=== PATIENT | male | born 1995 ===

== ENCOUNTER 2020-09-06 06:30 | Emergency (ER) | payer OTHER, SELFPAY ==
--- NOTE | 2020-09-06 06:46 | ED.BACK ---
HPI - Back Pain/Injury General Chief Complaint: Back Pain/Injury Stated Complaint: BACK PAIN Time Seen by Provider: 09/06/20 06:46 Source: patient Mode of arrival: ambulatory Limitations: no limitations History of Present Illness MD elicited complaint: back pain Onset (ago): day(s) (3) Timing: constant Severity: moderate Similar Symptoms Previously: No Quality: sharp Location: left flank Radiation: none Exacerbating factors: movement Relieving factors: none Context: unknown Associated symptoms: other (constipation) Treatments prior to arrival: other medications (topical capsacin) Work related injury: No Related Data Allergies Allergy/AdvReac Type Severity Reaction Status Date / Time No Known Allergies Allergy Verified 09/06/20 06:54 [No Known Allergies*] Review of Systems Review of Systems: Constitutional : No Weight loss, No Fever, No Chills, ENT/Mouth : No Hearing loss, No Ear Pain, No Nasal Congestion, No Sinus Pain, No Hoarseness, No sore throat, No Rhinorrhea, No Swallowing Difficulty Cardiovascular : No Chest Pain, No SOB Respiratory : No Cough, No Dyspnea Gastrointestinal : No Nausea, No Vomiting, No Diarrhea, No abdominal Pain, No Hematochezia, No Melena, chronic constipation Genitourinary : No Dysuria, No Urinary Frequency, No Hematuria, No Urinary Incontinence, Musculoskeletal : positive back pain Skin : No Skin Lesions, No rash Neuro : No Weakness, No Numbness, No Paresthesias, no loss of bowel or bladder incontinence, no saddle anesthesia PMFSH Past Medical History Attestation statement: The following information was validated with the patient. Medical History Patient denies significant medical history Surgical History No significant past surgical history Social History Social History (Updated 09/06/20 @ 06:54 by Sneha Chu DO) Smoking Status: Current every day smoker Substance Use Type: Opiates Advance Directives: Yes Advance Directives Information Provided: Yes Advance Directives on File: No Physical Exam Vital Signs: Vital Signs: Last Vital Signs Temp 98.1 F 09/06/20 06:51 Pulse 69 09/06/20 08:43 Resp 18 09/06/20 08:43 BP 122/54 L 09/06/20 08:43 Pulse Ox 99 09/06/20 08:43 Body Mass Index 22.1 Appearance: Alert. Oriented X3. No acute distress. Eyes: Pupils equal, round and reactive to light. ENT: Pharynx normal. Neck: Normal inspection. Neck supple. CVS: Normal heart rate and rhythm. Pulses normal. Respiratory: No respiratory distress. Breath sounds normal. Abdomen: Soft and nontender. Back: no midline ttp but L flank pain ttp no rash noted Skin: Skin warm and dry. Normal skin color. Normal skin turgor. Extremities: No lower extremity edema. No calf ttp Neuro: Oriented X 3. No motor deficit. No sensory deficit. Course Course Course Narrative: patient eloped prior to results, called number listed it is no longer in service, charge account authorizer called mother in attempts to reach patient but she does not have his cell number MDM - Back Pain/Injury MDM Narrative Medical decision making narrative: 25 yo male with no sig PMH reports L flank pain for 3 days, chronic constipation, denies IVDA but used percocet 2 weeks ago from [address] streets, he is somewhat agitated with questioning and is a poor historian, his L flank pain could be renal colic, doubt epidural abscess adamantly denies IVDA, no b/b incontinence, no saddle anesthesia - will obtain UA, treat pain, CT scan for renal colic, dispo per results and findings. Lab Data Labs: Lab Results 09/06/20 Range/Units 07:07 Urine Color YELLOW Urine Appearance CLEAR Urine pH 5.5 (5.0-8.0) Ur Specific [place] 1.025 (1.005-1.025) Urine Protein NEG (NEG-TRACE) MG/DL Urine Glucose (UA) NEG (NEG) MG/DL Urine Ketones NEG (NEG) MG/DL Urine Blood TRACE (NEG) Urine Nitrite NEG (NEG) Ur Leukocyte Esterase NEG (NEG) Urine RBC 1-4 (0) /HPF Urine WBC 1-4 (0-4) /HPF Ur Squamous Epith Cells TRACE /LPF Urine Bacteria NONE /LPF Urine Mucus TRACE /LPF Discharge Plan Discharge Clinical Impression: Acute left flank pain Patient Disposition: Elopement
[2020-09-06 06:51] VITALS: BP 140/70; PULSE 72; RESP 18; TEMP 36.7; O2SAT 100; BMI 22.1
--- NOTE | 2020-09-06 06:52 | CT_ITS ---
EXAMINATION: CT ABDOMEN AND PELVIS WITHOUT CONTRAST CLINICAL INFORMATION: Left flank pain COMPARISON: None TECHNIQUE: Multidetector volumetric imaging was performed from the superior aspect of the liver through the pubic symphysis. Sagittal and coronal reformatted images were obtained on the technologist's workstation. This CT examination was performed using dose optimization techniques as appropriate, variously including the following: *Automated exposure control *Adjustment of mA and/or kV according to patient size (this includes techniques or standardized protocols for targeted exams where dose is matched to indication/reason for exam; i.e. extremities or head) *Use of iterative reconstruction technique DLP: 463 mGy-cm FINDINGS: LUNG BASES: The visualized lung bases are unremarkable. LIVER, GALLBLADDER, AND BILIARY TREE: The liver is normal in size, shape, and attenuation. No focal hepatic lesion or biliary ductal dilatation is present. Bladder unremarkable. PANCREAS: Soft tissue prominence within or along the right anterolateral pancreatic head. Query mild peripancreatic inflammation about the pancreatic head and neck, obscuring fat planes about the superior mesenteric artery and posterior to the pancreas. SPLEEN: Unremarkable. ADRENAL GLANDS: Unremarkable. KIDNEYS AND URETERS: The kidneys are normal in size, shape, and attenuation. No hydronephrosis, hydroureter, or calculi seen. No perinephric stranding. BLADDER: Unremarkable. GASTROINTESTINAL TRACT: No intestinal obstruction. The transverse colon is under distended limiting assessment. Colitis involving the transverse colon cannot be excluded. The right and left colon are unremarkable. Appendix is normal. Stomach is unremarkable. ABDOMINAL WALL: No significant hernia is appreciated. LYMPH NODES: Normal. VASCULAR: Unremarkable. PELVIC VISCERA: Prostate and seminal vesicles grossly unremarkable. Trace pelvic free fluid. OSSEOUS STRUCTURES: Unremarkable. CT/CT abdomen pelvis wo con IMPRESSION: * No urinary calculi. * Exam significant limited in the absence of intravenous contrast. * There may be mild inflammation about the pancreatic head and neck with obscuration of the fat planes about the superior mesenteric artery and in the retroperitoneum posterior to the pancreas. Also, there is soft tissue density prominence along the right anterolateral pancreas/pancreatic head. Recommend contrast-enhanced CT for further evaluation. * Transverse colon is underdistended limiting assessment. There may be mild inflammation of the transverse colon/colitis. * Otherwise, no definite potential etiology for the patient's left flank pain is seen. * Trace pelvic free fluid is nonspecific, but abnormal in a male. This can be due to locoregional or systemic factors.
[2020-09-06] MEDS: diazePAM 5 MG TABLET PO (07:16)
[2020-09-06] MEDS: Lidocaine 4 % Patch ADH..PATCH 1 PATCH TRANSDERMA (07:16)
[2020-09-06] MEDS: predniSONE 20 MG TABLET 40 MG PO (07:16)
--- NOTE | 2020-09-06 07:17 | PC.NURSE ---
SEEN BY DR PETERSEN. MEDICATED PER ORDERS
[2020-09-06 07:24] LABS: Glucose Urine UA NEG (NEG); Leukocyte Esterase Urine NEG (NEG); Nitrite Urine NEG (NEG); PH 5.5 (5.0-8.0); Specific Gravity - Urine 1.025 (1.005-1.025); Urine Blood TRACE (NEG); Urine Ketones NEG (NEG); Urine Protein NEG (NEG-TRACE)
[2020-09-06 07:32] LABS: Appearance Urine CLEAR; Color Urine YELLOW
[2020-09-06 07:49] LABS: Mucus Urine TRACE /LPF; Squamous Epithelial Cell Urine TRACE /LPF
[2020-09-06 08:43] VITALS: BP 122/54; PULSE 69; RESP 18; O2SAT 99
--- NOTE | 2020-09-06 08:44 | PC.NURSE ---
SEEN BY DR PETERSEN, MEDICATED PER ORDERS WITH LITTLE EFEECT ON PAIN, TO AND FROM CT W/O PROBLEMS
--- NOTE | 2020-09-06 09:33 | PC.NURSE ---
message left at [phone] w pts mother to call the ED, [phone] was not in service
--- NOTE | 2020-09-06 09:52 | PC.NURSE ---
NOT IN ROOM AT 0900 AND 0930. CALL TO MOTHER TO HAVE PT RETURN FOR ABNORMAL CT
== END 2020-09-06 09:54 | disposition left against medical advice (07) ==
PROVIDERS: Emergency Provider Emergency Medicine
DX: R10.9 Unspecified abdominal pain (principal); F17.200 Nicotine dependence, unspecified, uncomplicated
CPT/HCPCS: 74176; 81001; 99283; 99284

== ENCOUNTER 2021-07-01 18:16 | Emergency (ER) | payer OTHER, SELFPAY ==
[2021-07-01 18:18] VITALS: BP 141/74; PULSE 61; RESP 18; TEMP 36.8; O2SAT 98; BMI 23.6
--- NOTE | 2021-07-01 18:36 | ED.DENTAL ---
HPI - Dental/Oral General Chief complaint: Dental/Oral Stated complaint: dental pain Time Seen by Provider: 07/01/21 18:36 Source: patient Mode of arrival: ambulatory Limitations: no limitations History of Present Illness HPI Narrative: Patient history of dental caries got worse for last few days complaining of pain shooting down fashion to the cold Teeth map: 1. Broken left lower 1st molar sensitive to touch no surrounding gum swelling or bogginess Related Data Previous Rx's Medication Instructions Recorded amoxicillin 875 mg-potassium 1 tab PO BID #20 tab 07/01/21 clavulanate 125 mg tablet (Augmentin) oxycodone-acetaminophen 5 mg-325 1 tab PO Q6H PRN #20 tab 07/01/21 mg tablet (Percocet) Allergies Allergy/AdvReac Type Severity Reaction Status Date / Time No Known Allergies Allergy Verified 09/06/20 06:54 [No Known Allergies*] Review of Systems Review of Systems: Yes all other systems are reviewed and are negative PMFSH Past Medical History Medical History Patient denies significant medical history Surgical History No significant past surgical history Social History Social History Substance Use Type: Opiates Advance Directives: No Advance Directives Information Provided: No Physical Exam Vital Signs: Vital Signs: Last Vital Signs Temp 98.3 F 07/01/21 18:18 Pulse 61 07/01/21 18:18 Resp 18 07/01/21 18:18 BP 141/74 H 07/01/21 18:18 Pulse Ox 98 07/01/21 18:18 Body Mass Index 23.6 Const: General: well developed and in distress moderate Orientation/consciousness: patient oriented x3 HENMT: Teeth image: 1. Broken left lower 1st molar tender to touch no abscess or swelling of the gum Resp: Effort & Inspection: normal respiratory effort Auscultation: clear to auscultation bilaterally Neuro: General: patient oriented x3 Discharge Plan Discharge Clinical Impression: Dental caries Patient Disposition: Home, Self-Care Instructions: Toothache (ED) Additional Instructions: Take antibiotics and pain medication as prescribed Follow up with dentist Prescriptions: New oxycodone-acetaminophen [Percocet] 5-325 mg tablet 1 tab PO Q6H PRN (Reason: pain) Qty: 20 RF: 0 amoxicillin-pot clavulanate [Augmentin] 875-125 mg tablet 1 tab PO BID Qty: 20 RF: 0
[2021-07-01] MEDS: oxyCODONE HCl Immed Release 5 MG TABLET 10 MG PO (18:53)
[2021-07-01] MEDS: Amoxicillin/Potassium Clav 875 MG TABLET PO (18:54)
== END 2021-07-01 18:59 | disposition home or self-care (01) ==
PROVIDERS: Emergency Provider Internal Medicine
DX: K02.9 Dental caries, unspecified (principal)
CPT/HCPCS: 99283

== ENCOUNTER 2021-08-16 12:31 | Emergency (ER) | payer OTHER, SELFPAY ==
[2021-08-16 13:02] VITALS: BP 127/85; PULSE 99; RESP 19; TEMP 36.6; O2SAT 99; BMI 25.1
== END 2021-08-16 19:41 | disposition left against medical advice (07) ==
PROVIDERS: Emergency Provider Emergency Medicine
DX: S41.112A Laceration without foreign body of left upper arm, initial encounter (principal); S41.111A Laceration without foreign body of right upper arm, initial encounter; V18.0XXA Pedal cycle driver injured in noncollision transport accident in nontraffic accident, initial encounter; Y93.55 Activity, bike riding; Y92.414 Local residential or business street as the place of occurrence of the external cause; Y99.9 Unspecified external cause status
CPT/HCPCS: 99281; 99282

== ENCOUNTER 2021-10-19 11:06 | Emergency (ER) | payer OTHER, SELFPAY ==
[2021-10-19 11:27] VITALS: BP 142/63; PULSE 100; RESP 19; TEMP 36.6; O2SAT 100; BMI 25.1
[2021-10-19 13:18] LABS: MANUAL DIFF FLAG NO
[2021-10-19 13:20] LABS: Basophils Percent Auto 0.8 % (0-2); Eosinophils Absolute Auto 0.1 X10*3/uL (0.0-0.4); Eosinophils Percent Auto 2.7 % (0-4); Hematocrit 45.4 % (42.0-52.0); Hemoglobin 15.2 g/dl (14.0-18.0); Lymphocytes Absolute Auto 1.8 X10*3/uL (1.2-4.9); Lymphocytes Percent Auto 34.3 % (20-40); Mean Corpuscular HGB Conc 33.5 g/dl (31.0-36.0); Mean Corpuscular Hemoglobin 29.5 pg (27.0-33.0); Mean Corpuscular Volume 88.2 fL (80.0-98.0); Mean Platelet Volume 9.9 fL (9.4-12.4); Monocytes Absolute Auto 0.3 X10*3/uL (0.1-1.2); Monocytes Percent Auto 6.3 % (2-11); Neutrophils Absolute Auto 2.9 x10*3/uL (2.0-8.3); Neutrophils Percent Auto 55.9 % (45-73); Platelet Count 252 X10*3/uL (160-400); Red Blood Count 5.15 X10*6/uL (4.60-5.80); White Blood Count 5.1 X10*3/uL (4.8-10.8)
--- NOTE | 2021-10-19 13:22 | ED.NAVMDI ---
HPI - Nausea/Vomiting/Diarrhea General Chief complaint: Abdominal Pain Stated complaint: vomiting/stomach pain/diarrhea Time Seen by Provider: 10/19/21 13:21 Source: patient Mode of arrival: ambulatory Limitations: no limitations History of Present Illness HPI Narrative: 26 y/o male presents to the ER for evaluation of nausea, vomiting, diarrhea and generalized abdominal pain that started this morning. His 2 young daughter are home with similar symptoms. They were brought to the ER and told they had a stomach bug a few days ago. Patient had 1 episode of nonbloody vomiting this morning and several episodes of loose stool, non-bloody. He has been tolerating PO liquids. He reports his stomach is upset with no specific location. He denies fever, chills, cough, chest pain or SOB. MD elicited complaint: nausea, vomiting, diarrhea and abdominal pain Onset (ago): hour(s) Description of vomiting: food contents Description of diarrhea: loose Associated nausea: Yes Associated abdominal pain: Yes Location of pain: diffuse Radiation: diffuse Pain consistency: intermittent Severity: moderate Quality: aching Exacerbating factors: eating Relieving factors: none Context: sick contacts Associated symptoms: nausea/vomiting Related Data Previous Rx's Medication Instructions Recorded amoxicillin 875 mg-potassium 1 tab PO BID #20 tab 07/01/21 clavulanate 125 mg tablet (Augmentin) oxycodone-acetaminophen 5 mg-325 1 tab PO Q6H PRN #20 tab 07/01/21 mg tablet (Percocet) Allergies Allergy/AdvReac Type Severity Reaction Status Date / Time No Known Allergies Allergy Verified 09/06/20 06:54 [No Known Allergies*] Review of Systems Review of Systems: Constitutional: No Fever, No Chills ENT/Mouth: No sore throat, No Rhinorrhea, No Swallowing Difficulty Eyes: No Eye Pain, No Swelling, No Redness Cardiovascular: No Chest Pain, No SOB, No Orthopnea, No Edema Respiratory: No Cough, No Sputum, No Wheezing, No dyspnea Gastrointestinal: + Nausea, + Vomiting, + Diarrhea, + abdominal Pain, No Hematochezia, No Melena Genitourinary: No Dysuria, No Urinary Frequency, No Hematuria Musculoskeletal: No joint pain, No Myalgias Skin: No Skin Lesions, No rash Neuro: No Weakness, No Numbness, No Dizziness, No Headache Psych: No Anxiety/Panic, No Depression Heme/Lymph: No Bruising, No Lymphadenopathy Endocrine: No Polyuria, No Polydipsia Gastrointestinal: Gastrointestinal: Reports nausea PMFSH Past Medical History Medical History (Updated 10/19/21 @ 13:25 by AMANDA Rodas) Bipolar 1 disorder Depression Patient denies significant medical history Seizure Surgical History No significant past surgical history Social History Social History Substance Use Type: Opiates Advance Directives: No Advance Directives Information Provided: No Physical Exam Vital Signs: Vital Signs: Last Vital Signs Temp 98 F 10/19/21 11:27 Pulse 100 10/19/21 11:27 Resp 19 10/19/21 11:27 BP 142/63 H 10/19/21 11:27 Pulse Ox 100 10/19/21 11:27 BMI result Body Mass Index 25.1 Appearance: Alert. Oriented X3. No acute distress. Eyes: Pupils equal, round and reactive to light. ENT: Pharynx normal. Neck: Normal inspection. Neck supple. CVS: Normal heart rate and rhythm. Pulses normal. Respiratory: No respiratory distress. Breath sounds normal. Abdomen: Flat, Soft and nontender. hyperactive +BS x4 Skin: Skin warm and dry. Normal skin color. Normal skin turgor. No rashes. Extremities: No lower extremity edema. Neuro: Oriented X 3. No motor deficit. No sensory deficit. Course Course Course Narrative: 26-year-old male presents to the ER with a few hours of nausea, 1 episode of vomiting and several episodes of loose stools that started today. His daughters are home with similar symptoms. His vital signs are normal on arrival in his examination is benign. Lab workup pending. Most likely viral gastroenteritis from his daughters. He is tolerating p.o., will hold off on IV fluids. Reevaluation(s) Reevaluation #1: Lab workup is unremarkable. No leukocytosis. He is stable for discharge home with supportive care. Work note provided per request. MDM - Nausea/Vomiting/Diarrhea Lab Data Result diagrams: 10/19/21 13:13 10/19/21 13:13 Labs: Lab Results 10/19/21 10/19/21 Range/Units 13:13 13:13 WBC 5.1 (4.8-10.8) X10*3/uL RBC 5.15 (4.60-5.80) X10*6/uL Hgb 15.2 (14.0-18.0) g/dl Hct 45.4 (42.0-52.0) % MCV 88.2 (80.0-98.0) fL MCH 29.5 (27.0-33.0) pg MCHC 33.5 (31.0-36.0) g/dl RDW 12.0 (11.0-16.0) % Plt Count 252 (160-400) X10*3/uL MPV 9.9 (9.4-12.4) fL Immature Gran % (Auto) 0.0 (0.0-0.4) % Neut % (Auto) 55.9 (45-73) % Lymph % (Auto) 34.3 (20-40) % [place] % (Auto) 6.3 (2-11) % Eos % (Auto) 2.7 (0-4) % Baso % (Auto) 0.8 (0-2) % Lymph # (Auto) 1.8 (1.2-4.9) X10*3/uL [place] # (Auto) 0.3 (0.1-1.2) X10*3/uL Eos # (Auto) 0.1 (0.0-0.4) X10*3/uL Baso # (Auto) 0.0 (0.0-0.2) X10*3/uL Abs Immat Gran (auto) 0.00 (0.00-0.03) X10*3/uL Absolute Neuts (auto) 2.9 (2.0-8.3) x10*3/uL Absolute Nucleated RBC 0.000 (0.0-0.012) X10*3/uL Nucleated RBC % (auto) 0.0 (0.0-0.2) /100WBC Sodium 139 (135-145) mmol/L Potassium 4.8 (3.3-5.1) mmol/L Chloride 104 (96-108) mmol/L Carbon Dioxide 27 (22-29) mmol/L Anion Gap 13 (12-20) BUN 11 (9-16) mg/dL Creatinine 0.88 (0.5-1.4) mg/dL Estim Creat Clear Calc 126.0 Estimated GFR > 60 Random Glucose 107 (60-115) mg/dL Calcium 9.7 (8.4-10.2) mg/dL Discharge Plan Discharge Clinical Impression: Gastroenteritis Patient Disposition: Home, Self-Care Instructions: Gastroenteritis (DC) Additional Instructions: Your lab workup today was unremarkable. Stick to a bland diet while you are not feeling well like soup and toast. Take the prescribed medication as needed for nausea. Follow up with your doctor as needed. If you develop new or worsening symptoms call 911 or come back to the ER for further evaluation. Prescriptions: No Action oxycodone-acetaminophen [Percocet] 5-325 mg tablet 1 tab PO Q6H PRN (Reason: pain) Qty: 20 0RF amoxicillin-pot clavulanate [Augmentin] 875-125 mg tablet 1 tab PO BID Qty: 20 0RF Stand Alone Forms: Work/School Release
[2021-10-19 14:13] LABS: Anion Gap 13 (12-20); Blood Urea Nitrogen 11 mg/dL (9-16); Calcium 9.7 mg/dL (8.4-10.2); Carbon Dioxide 27 mmol/L (22-29); Chloride 104 mmol/L (96-108); Estimated Glomerular Filt Rate > 60; Glucose Random 107 mg/dL (60-115); Potassium 4.8 mmol/L (3.3-5.1); Sodium 139 mmol/L (135-145)
== END 2021-10-19 14:27 | disposition home or self-care (01) ==
PROVIDERS: Emergency Provider Emergency Medicine
DX: K52.9 Noninfective gastroenteritis and colitis, unspecified (principal); R11.2 Nausea with vomiting, unspecified
CPT/HCPCS: 36415; 80048; 85025; 99283

== ENCOUNTER 2021-12-21 08:26 | Emergency (ER) | payer OTHER, SELFPAY ==
--- NOTE | ~2021-12-21 | XR_ITS ---
EXAMINATION: XR LUMBOSACRAL SPINE CLINICAL INFORMATION: Low back pain status post injury. COMPARISON: 01/15/2020 lumbar spine radiographs TECHNIQUE: Three views of the lumbosacral spine. FINDINGS: The vertebral bodies and posterior elements are normal. The disc spaces are preserved and the vertebral alignment is normal. The paraspinal soft tissues are normal. XR/XR lumbar spine 2-3V IMPRESSION: Unremarkable lumbar spine.
[2021-12-21 08:29] VITALS: BP 125/79; PULSE 58; RESP 14; TEMP 36; O2SAT 99; BMI 20.7
--- NOTE | 2021-12-21 09:12 | ED.BACK ---
HPI - Back Pain/Injury General Chief Complaint: Back Pain/Injury Stated Complaint: lower back pain Time Seen by Provider: 12/21/21 09:06 Source: patient Mode of arrival: ambulatory Limitations: no limitations History of Present Illness HPI Narrative: 26-year-old male with a history of previous back pain here with reports of low back pain after lifting heavy furniture yesterday at home. Patient denies any radiation of pain. No numbness or tingling of the lower extremities. No bowel or bladder incontinence. No fevers or chills. Related Data Previous Rx's Medication Instructions Recorded amoxicillin 875 mg-potassium 1 tab PO BID #20 tab 07/01/21 clavulanate 125 mg tablet (Augmentin) oxycodone-acetaminophen 5 mg-325 1 tab PO Q6H PRN #20 tab 07/01/21 mg tablet (Percocet) cyclobenzaprine 10 mg tablet 10 mg PO TID PRN #14 tab 12/21/21 naproxen 500 mg tablet 500 mg PO BID PRN #30 tab 12/21/21 Allergies Allergy/AdvReac Type Severity Reaction Status Date / Time No Known Allergies Allergy Verified 09/06/20 06:54 [No Known Allergies*] Review of Systems Review of Systems: Yes all other systems are reviewed and are negative Constitutional: Constitutional: Reports no additional constitutional complaints, Denies body ache(s), Denies chills, Denies fever(s), Denies headache(s) and Denies weakness Eyes: Eyes: Reports no additional eye complaints and Denies change in vision ENT: Reports system reviewed and no additional complaints, except as documented, Denies dizziness, Denies headache(s), Denies nasal congestion, Denies nasal discharge and Denies neck pain Cardiovascular: Cardiovascular: Reports no additional cardiovascular complaints, Denies chest pain, Denies leg edema and Denies dyspnea Respiratory: Respiratory: Reports no additional respiratory complaints, Denies cough and Denies dyspnea Gastrointestinal: Gastrointestinal: Reports no additional gastrointestinal complaints, Denies abdominal pain, Denies diarrhea, Denies nausea and Denies vomiting Genitourinary: Genitourinary: Denies urinary incontinence Musculoskeletal: Musculoskeletal: Reports no additional musculoskeletal complaints, Reports back pain, Denies arthralgias, Denies joint swelling, Denies neck pain, Denies numbness and Denies tingling Integumentary/Breasts: Skin/Breast: Reports system reviewed and no additional complaints, except as docu and Denies rash Neurologic: Reports system reviewed and no additional complaints, except as documented, Denies Abnormal speech present, Denies dizziness, Denies headache(s), Denies numbness, Denies tingling and Denies weakness PMFSH Past Medical History Attestation statement: The following information was validated with the patient. Source: old records reviewed and nursing notes reviewed Medical History Bipolar 1 disorder Depression Patient denies significant medical history Seizure Surgical History No significant past surgical history Social History Social History Substance Use Type: Opiates Advance Directives: No Advance Directives Information Provided: No Physical Exam Vital Signs: Vital Signs: Last Vital Signs Temp 96.8 F 12/21/21 08:29 Pulse 58 12/21/21 08:29 Resp 17 12/21/21 09:51 BP 125/79 12/21/21 08:29 Pulse Ox 99 12/21/21 08:29 BMI result Body Mass Index 20.7 Const: General: cooperative, healthy appearing, comfortable and no acute distress Orientation/consciousness: patient oriented x3 Limitations: no limitations HEENT: Head: Yes normal to inspection Ears: hearing grossly normal bilaterally General nose exam: Normal external nose present Face and sinus: Yes normal facial exam Mouth: Normal oral and palatal mucosa present Throat: Yes posterior oropharynx normal Eyes: General: appearance normal, both eyes and all related structures Pupils: Equal, round and reactive pupils present Neck: Neck: Yes normal visual inspection Chest: Chest palpation & inspection: normal inspection of the chest Resp: Effort & Inspection: normal respiratory effort Auscultation: clear to auscultation bilaterally Cardio: Rate: regular rate Rhythm: regular rhythm Peripheral pulses: Peripheral pulses 2+ throughout GI: Inspection: Yes normal to inspection Palpation (GI): Soft to palpation and nontender Auscultation: normal bowel sounds : General: Yes no CVA tenderness Back/Spine/Pelvis: Other: Tenderness to lumbar mid spine with no step-offs or deformities. Pain is worsened with bilateral straight leg raise. Back: no CVA tenderness Thoracic/Lumbar Spine: thoracic and lumbar spine normal to inspection Skin: General skin exam: no rashes or lesions noted Neuro: General: patient oriented x3, no focal motor deficits and normal sensation to monofilament Cranial nerves: Yes CN's II-XII intact bilaterally, Yes Equal, round and reactive pupils present, Yes Bilaterally intact EOM present, Yes Nystagmus not present, Yes Normal facial strength present and Yes Midline tongue present Cognition (Neuro): normal cognition Speech: No Abnormal speech present Gait exam (Neuro): Normal gait present Motor exam (neuro): 5/5 motor strength present throughout Sensory Exam: Normal double simultaneous stimulation for sensation Deep tendon reflexes (DTR's): Right patellar reflex intensity grade: 2+ and Left patellar reflex intensity grade: 2+ Extrem: General: Yes normal to inspection Course Course Course Narrative: 26-year-old male here with acute on chronic low back pain after lifting heavy items yesterday. Patient has midline tenderness will check x-rays. Will provide analgesia and reassess Reevaluation(s) Reevaluation #1: X-ray show no bony abnormality. Likely lumbar strain. Will plan for discharge home with supportive care. Reviewed worrisome signs and symptoms such as incontinence, saddle anesthesia, fever and when to return to the emergency department. Comfortable discharge home. Time: 09:45 MDM - Back Pain/Injury MDM Narrative Medical decision making narrative: Less likely cauda equina with no neurological deficits or red flag symptoms. No saddle anesthesia or incontinence Less likely epidural abscess with no history of immunocompromise state, no fevers Medical Records Attestation: I reviewed the patient's medical records. Lab Data Attestation: I reviewed the patient's lab results. Imaging Data lumbar x-ray: Attestation: I personally reviewed and interpreted this imaging study as follows: Radiologist's impression: [address] [address] XRay Report Signed Patient: Jacy Simmons MR#: [id number] : 1995 Acct:[id number] Age/Sex: 26 / M ADM Date: 12/21/21 Loc: [facility].ED Attending Dr: Ordering Physician: Monalisa Manzanares NP Date of Service: 12/21/21 Procedure(s): XR lumbar spine 2-3V Accession Number(s): [id number] cc: Monalisa Manzanares [employer]IOR [employer]S CONSULTANT~ EXAMINATION: XR LUMBOSACRAL SPINE CLINICAL INFORMATION: Low back pain status post injury. COMPARISON: 01/15/2020 lumbar spine radiographs TECHNIQUE: Three views of the lumbosacral spine. FINDINGS: The vertebral bodies and posterior elements are normal. The disc spaces are preserved and the vertebral alignment is normal. The paraspinal soft tissues are normal. XR/XR lumbar spine 2-3V IMPRESSION: Unremarkable lumbar spine. Discharge Plan Discharge Clinical Impression: Strain of lumbar region Patient Disposition: Home, Self-Care Instructions: Low Back Strain (ED) Additional Instructions: Heat or ice Gentle stretching No heavy lifting or bending Follow-up with your primary care doctor in 1 week for persistent symptoms Prescriptions: New naproxen 500 mg tablet 500 mg PO BID PRN (Reason: pain) Qty: 30 0RF cyclobenzaprine 10 mg tablet 10 mg PO TID PRN (Reason: muscle spasm) Qty: 14 0RF No Action oxycodone-acetaminophen [Percocet] 5-325 mg tablet 1 tab PO Q6H PRN (Reason: pain) Qty: 20 0RF amoxicillin-pot clavulanate [Augmentin] 875-125 mg tablet 1 tab PO BID Qty: 20 0RF Referrals: Physician,Unknown J [Primary Care Provider] - 1 week (For persistent symptoms) Interventions: ED Discharge Assessment Last Done: 12/21/21 09:51 Discharge Date/Time: 12/21/21 09:52
[2021-12-21] MEDS: Ketorolac Tromethamine 60 MG/2 ML VIAL IM (09:28)
[2021-12-21 09:51] VITALS: RESP 17
== END 2021-12-21 09:52 | disposition home or self-care (01) ==
PROVIDERS: Emergency Provider Emergency Medicine
DX: M54.50 Low back pain, unspecified (principal); Z79.899 Other long term (current) drug therapy
CPT/HCPCS: 72100; 96372; 99283; 99284; J1885

== ENCOUNTER 2022-03-26 07:12 | Emergency (ER) | payer OTHER, SELFPAY ==
[2022-03-26 07:23] VITALS: BP 135/72; PULSE 62; RESP 17; TEMP 36.6; O2SAT 98; BMI 22.1
--- NOTE | 2022-03-26 10:09 | ED_ITS ---
HPI - Skin/Abscess/Foreign Bdy General Chief complaint: Wound/Laceration Stated complaint: Abscess? Spider bite Time Seen by Provider: 03/26/22 09:22 Source: patient Mode of arrival: ambulatory Limitations: no limitations History of Present Illness HPI narrative: Patient presents emergency department for evaluation pain and redness to the left upper thigh. He states it has been present for a couple of days. He felt himself get bit by something a couple of days ago but thought nothing of it. Until he realized the redness. He states he was able to express a small amount of pus from the area yesterday. He applied warm moist compresses which is actually brought down the amount of swelling and redness. Denies fevers or chills. Denies history of IV drug usage. Reports prior history of an abscess to the buttock requiring incision and drainage in the past. Related Data Previous Rx's Medication Instructions Recorded amoxicillin 875 mg-potassium 1 tab PO BID #20 tabs 07/01/21 clavulanate 125 mg tablet (Augmentin) oxycodone-acetaminophen 5 mg-325 1 tab PO Q6H PRN pain #20 tabs 07/01/21 mg tablet (Percocet) cyclobenzaprine 10 mg tablet 10 mg PO TID PRN muscle spasm #14 12/21/21 tabs naproxen 500 mg tablet 500 mg PO BID PRN pain #30 tabs 12/21/21 cephalexin 500 mg capsule 500 mg PO QID 7 days #28 caps 03/26/22 doxycycline hyclate 100 mg tablet 100 mg PO BID 7 days #14 tabs 03/26/22 Allergies Allergy/AdvReac Type Severity Reaction Status Date / Time No Known Allergies Allergy Verified 09/06/20 06:54 [No Known Allergies*] Review of Systems Review of Systems: Constitutional :? Positive history of similar in past, Denies any other sites involved, Denies IV drug use, Denies history of MRSA, Denies swollen glands, Denies injury, Denies Fever, Denies Chills, + Sig Pain, Denies Systemic symptoms Cardiovascular : No Chest Pain, No SOB Respiratory : No Dyspnea Gastrointestinal : No abdominal pain Musculoskeletal : No Joint Swelling Skin : + abscess with surrounding erythema, No skin laceration, No Foreign bodies, No spreading rash, positive bites, Denies discharge, Neuro : No Weakness, No Numbness/tingling Psych : No SI/HI/thoughts of self injury Yes all other systems are reviewed and are negative [facility] Past Medical History Attestation statement: The following information was validated with the patient. Source: old records reviewed Medical History Bipolar 1 disorder Depression Patient denies significant medical history Seizure Surgical History No significant past surgical history Social History Social History Substance Use Type: Opiates Advance Directives: No Advance Directives Information Provided: No Physical Exam Vital Signs: Vital Signs: Last Vital Signs Temp 98 F 03/26/22 07:23 Pulse 62 03/26/22 07:23 Resp 17 03/26/22 07:23 BP 135/72 03/26/22 07:23 Pulse Ox 98 03/26/22 07:23 O2 Del Method 03/26/22 07:23 BMI result Body Mass Index 22.1 Vital signs have been reviewed as normal and appeared to be correct. Blood pressure normal.? Heart rate normal.? Respiration rate normal. Temperature normal.? Oxygen saturation normal. Appearance: Alert.?Oriented to person, place and time. No acute distress.?Normal affect. Eyes: Pupils equal, round and reactive to light.? ENT: Pharynx normal.?? Neck: Normal inspection.? Neck supple.?? CVS: Heart sounds normal. Normal heart rate and rhythm.? Pulses normal.?? Respiratory: No respiratory distress.? Lung sounds clear to auscultation bilaterally?? Abdomen: Soft and non-tender. Normoactive bowel sounds. No pulsatile mass.?? Skin: Skin warm and dry.? Normal skin color.? Positive 4 cm induration to left upper lateral thigh with surrounding erythema Extremities: No lower extremity edema.? Neuro: Moves all extremities spontaneously. Sensation intact bilaterally. No motor deficits Ambulates with normal steady gait. Course Course Course Narrative: Patient is a 26-year-old male presents emergency department for evaluation of erythema and pain to the left thigh. History physical exam consistent with cellulitis, area of induration no central fluctuance. No systemic toxicity, and patient is well-appearing. Not consistent with necrotizing fasciitis, myositis, DVT, osteomyelitis. Erythema was marked with skin marker. No labs or imaging indicated at this time. Will discharge home with course of oral antibiotics and symptomatic treatment instructions. Discussed reasons to return to the emergency department, and follow-up with primary care provider within 3 days. Patient agreeable with plan of care. Discharge Plan Discharge Clinical Impression: Cellulitis and abscess of left lower extremity Patient Disposition: Home, Self-Care Instructions: Cellulitis (ED) Additional Instructions: As we discussed please contact your primary care provider and arrange for follow-up within 3 days. If you notice worsening redness, swelling, redness extending the border of the marked skin, whitening of the skin surrounding the bite, or concern for pus, fevers, chills, severe worsening pain this should be re-evaluated. Continue applying warm moist compresses. Given given a prescription for 2 antibiotics, please complete this entire course. Return to emergency department any new or worsening symptoms or concerns Prescriptions: New cephalexin 500 mg capsule 500 mg PO QID 7 Days Qty: 28 0RF doxycycline hyclate 100 mg tablet 100 mg PO BID 7 Days Qty: 14 0RF No Action oxycodone-acetaminophen [Percocet] 5-325 mg tablet 1 tab PO Q6H PRN (Reason: pain) Qty: 20 0RF amoxicillin-pot clavulanate [Augmentin] 875-125 mg tablet 1 tab PO BID Qty: 20 0RF naproxen 500 mg tablet 500 mg PO BID PRN (Reason: pain) Qty: 30 0RF cyclobenzaprine 10 mg tablet 10 mg PO TID PRN (Reason: muscle spasm) Qty: 14 0RF Stand Alone Forms: Work/School Release Interventions: ED Discharge Assessment Last Done: 03/26/22 10:30 Discharge Date/Time: 03/26/22 10:32
== END 2022-03-26 10:32 | disposition home or self-care (01) ==
PROVIDERS: Emergency Provider Emergency Medicine
DX: L03.116 Cellulitis of left lower limb (principal); L02.416 Cutaneous abscess of left lower limb
CPT/HCPCS: 99283

== ENCOUNTER 2022-03-27 15:58 | Emergency (ER) | payer OTHER, SELFPAY ==
[2022-03-27 17:22] VITALS: BP 107/48; PULSE 62; RESP 18; TEMP 36.7; O2SAT 100; BMI 21.6
== END 2022-03-27 21:35 | disposition left against medical advice (07) ==
PROVIDERS: Emergency Provider Emergency Medicine
DX: M79.605 Pain in left leg (principal)
CPT/HCPCS: 99281

== ENCOUNTER 2022-03-28 11:11 | Emergency (ER) | payer OTHER, SELFPAY ==
--- NOTE | 2022-03-28 11:19 | PC.NURSE ---
NOT IN [facility] X 3 CALLS
[2022-03-28 11:22] VITALS: BP 147/69; PULSE 86; RESP 17; TEMP 36.1; O2SAT 98; BMI 22.1
[2022-03-28] MEDS: Lidocaine HCl 1 % MPF 2 ML VIAL INFILTRATI (13:46)
--- NOTE | 2022-03-28 14:38 | ED_ITS ---
HPI - Wound/Laceration General Chief Complaint: Wound/Laceration Stated Complaint: abscess Time Seen by Provider: 03/28/22 12:50 Source: patient Mode of arrival: ambulatory History of Present Illness HPI narrative: 26-year-old male with a past medical history of bipolar, depression, seizures, presenting to ED for re-evaluation of left upper thigh cellulitis/suspected insect bite. Patient was seen and treated in the ED on 03/26, prescribed Keflex and doxycycline with some relief however reports area came to white head yesterday and popped this morning. Reports active drainage at present. States overall erythema has improved. Denies fever, chills Onset (ago): day(s) Related Data Previous Rx's Medication Instructions Recorded amoxicillin 875 mg-potassium 1 tab PO BID #20 tabs 07/01/21 clavulanate 125 mg tablet (Augmentin) oxycodone-acetaminophen 5 mg-325 1 tab PO Q6H PRN pain #20 tabs 07/01/21 mg tablet (Percocet) cyclobenzaprine 10 mg tablet 10 mg PO TID PRN muscle spasm #14 12/21/21 tabs naproxen 500 mg tablet 500 mg PO BID PRN pain #30 tabs 12/21/21 cephalexin 500 mg capsule 500 mg PO QID 7 days #28 caps 03/26/22 doxycycline hyclate 100 mg tablet 100 mg PO BID 7 days #14 tabs 03/26/22 Allergies Allergy/AdvReac Type Severity Reaction Status Date / Time No Known Allergies Allergy Verified 03/27/22 17:22 [No Known Allergies*] Review of Systems Review of Systems: Constitutional: No Fever, No Chills ENT/Mouth: No Ear Pain, No Nasal Congestion, No sore throat, No Rhinorrhea, No Swallowing Difficulty Cardiovascular: No Chest Pain, No SOB Respiratory: No Cough, No Sputum, No Wheezing Gastrointestinal: No Nausea, No Vomiting, No Diarrhea, No Constipation, No Abdominal pain Genitourinary: No Dysuria, No Urinary Frequency, No Hematuria Musculoskeletal: No joint pain, No Myalgias, No Joint Swelling Skin: + Skin Lesions, No rash Neuro: No Weakness, No Numbness, No Paresthesias Yes all other systems are reviewed and are negative Constitutional: Constitutional: Reports as per [facility] Past Medical History Attestation statement: The following information was validated with the patient. Medical History Bipolar 1 disorder Depression Patient denies significant medical history Seizure Surgical History No significant past surgical history Social History Social History Substance Use Type: Opiates Advance Directives: No Advance Directives Information Provided: No Physical Exam Vital Signs: Vital Signs: Last Vital Signs Temp 97 F 03/28/22 11:22 Pulse 86 03/28/22 11:22 Resp 17 03/28/22 11:22 BP 147/69 H 03/28/22 11:22 Pulse Ox 98 03/28/22 11:22 O2 Del Method 03/28/22 11:22 BMI result Body Mass Index 22.1 Const: General: cooperative, healthy appearing and no acute distress Orientation/consciousness: patient oriented x3 Limitations: no limitations HEENT: Head: Yes normal to inspection and Yes atraumatic Ears: hearing grossly normal bilaterally General nose exam: Normal external nose present Face and sinus: Yes normal facial exam Eyes: General: appearance normal, both eyes and all related structures EOM: EOMs intact bilaterally Neck: Neck: Yes normal visual inspection and Yes no meningeal signs Resp: Effort & Inspection: normal respiratory effort and no respiratory distress Cardio: Rate: regular rate Skin: Other: + left upper thigh open draining wound with surrounding erythema within previously marked parameters. + small area of central fluctuance at opening with surrounding induration. Tender to palpation. Not circumferential. No streaking. Rashes: no rashes Neuro: General: patient oriented x3, tone normal and no meningeal signs Gait exam (Neuro): Normal gait present Extrem: General: Yes normal to inspection MDM - Wound/Laceration MDM Narrative Medical decision making narrative: 26-year-old male with a past medical history of bipolar, depression, seizures, presenting to ED for re-evaluation of left upper thigh cellulitis/suspected insect bite. On exam vital signs stable, NAD, nontoxic appearing, physical exam as above with open draining abscess, will perform I & D to express more pus. Instructed patient to continue previously prescribed antibiotics Results discussed with patient including worrisome signs and symptoms and strict return precautions, and when to return to the emergency department. They verbalized understanding and feel safe for discharge at this time. Differential Diagnosis Differential diagnosis: Likely laceration Medical Records Attestation: I reviewed the patient's medical records. Lab Data Attestation: I reviewed the patient's lab results. Procedures Abscess I/D Site: lower extremity Side (if applicable): left Local Anesthetic: lidocaine 1% Amount of anesthesia used (mL): 2 Technique: incised with blade Sent for culture/gram staining?: No Irrigation: No Packing used?: none Discharge Plan Discharge Clinical Impression: Abscess Patient Disposition: Home, Self-Care Instructions: Abscess Incision and Drainage (DC) Additional Instructions: Continue taking previously prescribed antibiotics. Her abscess is open today in the emergency department. Continue to apply warm compresses. If area begins to grow, continues to drain, you have fevers, is passing the line created return to the emergency department Prescriptions: No Action oxycodone-acetaminophen [Percocet] 5-325 mg tablet 1 tab PO Q6H PRN (Reason: pain) Qty: 20 0RF amoxicillin-pot clavulanate [Augmentin] 875-125 mg tablet 1 tab PO BID Qty: 20 0RF naproxen 500 mg tablet 500 mg PO BID PRN (Reason: pain) Qty: 30 0RF cyclobenzaprine 10 mg tablet 10 mg PO TID PRN (Reason: muscle spasm) Qty: 14 0RF cephalexin 500 mg capsule 500 mg PO QID 7 Days Qty: 28 0RF doxycycline hyclate 100 mg tablet 100 mg PO BID 7 Days Qty: 14 0RF Referrals: Adrianna Coronado, [employer] [Primary Care Provider] - 3 days
== END 2022-03-28 14:48 | disposition home or self-care (01) ==
PROVIDERS: Emergency Provider Emergency Medicine; PCP Nurse Practitioner Family
DX: L02.416 Cutaneous abscess of left lower limb (principal); Z79.899 Other long term (current) drug therapy
CPT/HCPCS: 10060; 99283; 99284

== ENCOUNTER 2022-04-05 08:38 | Emergency (ER) | payer OTHER, SELFPAY ==
[2022-04-05 08:45] VITALS: BP 124/70; PULSE 50; RESP 17; TEMP 36.6; O2SAT 98; BMI 23.6
--- NOTE | 2022-04-05 08:46 | ED.NAVMDI ---
HPI - Nausea/Vomiting/Diarrhea General Chief complaint: Nausea/Vomiting/Diarrhea Stated complaint: Nausea, Vomiting, Diarrhea Time Seen by Provider: 04/05/22 08:45 Source: patient Mode of arrival: ambulatory Limitations: no limitations History of Present Illness HPI Narrative: 26-year-old male with history of bipolar disorder, depression, seizures, recent left upper thigh cellulitis and abscess who presents to the ER with nausea, vomiting, & diarrhea since 4am today. He reports going to bed last night and feeling well. He had leftover rice and beans for dinner. No one else at home is sick. He reports several episodes of nonbloody vomiting and diarrhea this morning and unable to eat or drink anything. No abdominal pain just ongoing nausea. He denies fever or chills. He denies ETOH use. Occasional marijuana. MD elicited complaint: nausea and vomiting Onset (ago): hour(s) (5) Description of vomiting: food contents and watery Description of diarrhea: loose Associated nausea: Yes Associated abdominal pain: No Location of pain: none Severity: moderate Exacerbating factors: eating Relieving factors: none Associated symptoms: loss of appetite, malaise, nausea/vomiting and weakness Related Data Previous Rx's Medication Instructions Recorded amoxicillin 875 mg-potassium 1 tab PO BID #20 tabs 07/01/21 clavulanate 125 mg tablet (Augmentin) oxycodone-acetaminophen 5 mg-325 1 tab PO Q6H PRN pain #20 tabs 07/01/21 mg tablet (Percocet) cyclobenzaprine 10 mg tablet 10 mg PO TID PRN muscle spasm #14 12/21/21 tabs naproxen 500 mg tablet 500 mg PO BID PRN pain #30 tabs 12/21/21 cephalexin 500 mg capsule 500 mg PO QID 7 days #28 caps 03/26/22 doxycycline hyclate 100 mg tablet 100 mg PO BID 7 days #14 tabs 03/26/22 ondansetron 4 mg disintegrating 4 mg PO Q8H PRN nausea and 04/05/22 tablet vomiting #7 tabs Allergies Allergy/AdvReac Type Severity Reaction Status Date / Time No Known Allergies Allergy Verified 03/27/22 17:22 [No Known Allergies*] Review of Systems Review of Systems: Constitutional: No Fever, No Chills ENT/Mouth: No sore throat, No Rhinorrhea, No Swallowing Difficulty Cardiovascular: No Chest Pain, No SOB, No Orthopnea, No Edema Respiratory: No Cough, No Sputum, No Wheezing, No dyspnea Gastrointestinal: + Nausea, + Vomiting, + Diarrhea, No abdominal Pain, No Hematochezia, No Melena Genitourinary: No Dysuria, No Urinary Frequency, No Hematuria Musculoskeletal: No joint pain, No Myalgias Skin: No Skin Lesions, No rash Neuro: No Weakness, No Numbness, No Dizziness, No Headache Psych: No Anxiety/Panic, No Depression Heme/Lymph: No Bruising, No Lymphadenopathy Endocrine: No Polyuria, No Polydipsia Gastrointestinal: Gastrointestinal: Reports nausea PMFSH Past Medical History Medical History Bipolar 1 disorder Depression Patient denies significant medical history Seizure Surgical History No significant past surgical history Social History Social History Substance Use Type: Opiates Advance Directives: No Advance Directives Information Provided: No Physical Exam Vital Signs: Vital Signs: Last Vital Signs Temp 98 F 04/05/22 09:43 Pulse 50 04/05/22 09:43 Resp 177 H 04/05/22 09:43 BP 124/70 04/05/22 09:43 Pulse Ox 98 04/05/22 09:43 O2 Del Method 04/05/22 09:43 BMI result Body Mass Index 23.6 Appearance: Alert. Oriented X3. No acute distress. Eyes: Pupils equal, round and reactive to light. ENT: Pharynx normal. Neck: Normal inspection. Neck supple. CVS: Normal heart rate and rhythm. Pulses normal. Respiratory: No respiratory distress. Breath sounds normal. Abdomen: Soft and nontender. +BS x4 Skin: Skin warm and dry. Normal skin color. Normal skin turgor. No rashes. Extremities: No lower extremity edema. Neuro: Oriented X 3. No motor deficit. No sensory deficit. Course Course Course Narrative: 26 yo male presenting to the ER with N/V/D since 4am today. No abdominal pain. VSS on arrival with a benign physical exam. Will give IVF, Zofran and check basic labs. Will reassess. Reevaluation(s) Reevaluation #1: Labs unremarkable aside from lipase 155. He has no abdominal pain. He is tolerating PO. Doubt acute pancreatitis. Most likely viral gastroenteritis, discussed with the patient. Will prescribe p.r.n. Zofran. Work note provided per request. Return precautions were discussed. Patient is stable for discharge home MDM - Nausea/Vomiting/Diarrhea Lab Data Result diagrams: 04/05/22 09:08 04/05/22 09:08 Labs: Lab Results 04/05/22 04/05/22 04/05/22 Range/Units 09:08 09:08 09:09 WBC 4.1 L (4.8-10.8) X10*3/uL RBC 4.77 (4.60-5.80) X10*6/uL Hgb 13.7 L (14.0-18.0) g/dl Hct 40.5 L (42.0-52.0) % MCV 84.9 (80.0-98.0) fL MCH 28.7 (27.0-33.0) pg MCHC 33.8 (31.0-36.0) g/dl RDW 12.0 (11.0-16.0) % Plt Count 166 D (160-400) X10*3/uL MPV 9.5 (9.4-12.4) fL Immature Gran % (Auto) 0.2 (0.0-0.4) % Neut % (Auto) 48.5 (45-73) % Lymph % (Auto) 35.8 (20-40) % Coffey % (Auto) 8.9 (2-11) % Eos % (Auto) 5.9 H (0-4) % Baso % (Auto) 0.7 (0-2) % Lymph # (Auto) 1.5 (1.2-4.9) X10*3/uL Coffey # (Auto) 0.4 (0.1-1.2) X10*3/uL Eos # (Auto) 0.2 (0.0-0.4) X10*3/uL Baso # (Auto) 0.0 (0.0-0.2) X10*3/uL Abs Immat Gran (auto) 0.01 (0.00-0.03) X10*3/uL Absolute Neuts (auto) 2.0 (2.0-8.3) x10*3/uL Absolute Nucleated RBC 0.000 (0.0-0.012) X10*3/uL Nucleated RBC % (auto) 0.0 (0.0-0.2) /100WBC Sodium 140 (135-145) mmol/L Potassium 4.1 (3.3-5.1) mmol/L Chloride 105 (96-108) mmol/L Carbon Dioxide 27 (22-29) mmol/L Anion Gap 12 (12-20) BUN 11 (9-16) mg/dL Creatinine 0.80 (0.5-1.4) mg/dL Estim Creat Clear Calc 138.6 Estimated GFR > 60 Random Glucose 108 (60-115) mg/dL Calcium 8.6 D (8.4-10.2) mg/dL Magnesium 1.8 (1.6-2.6) mg/dL Total Bilirubin 0.2 (0.0-1.0) mg/dL Direct Bilirubin < 0.2 (0.0-0.5) mg/dL AST 15 (5-37) U/L ALT 21 (0-40) U/L Alkaline Phosphatase 74 (39-117) U/L Total Protein 6.0 L (6.5-8.0) g/dL Albumin 3.9 (3.5-5.0) g/dL Lipase 155 H (8-78) U/L COVID-19 (DAVID) Negative (Negative) COVID-19 Clin Com See Note Discharge Plan Discharge Clinical Impression: Gastroenteritis Patient Disposition: Home, Self-Care Instructions: Gastroenteritis (ED) Additional Instructions: You lab workup today was unremarkable. You most likely have a viral GI bug also known as gastroenteritis. Treatment is supportive care, symptoms usually resolve on their own in 48-72 hours. Recommend rest and plenty of oral hydration. Stick to a bland diet like soup and toast while you are not feeling well. Take the prescribed medication as needed for nausea. Recommend over the counter Pepto Bismol or Imodium for upset stomach and diarrhea. Follow up with your doctor as needed. If you develop new or worsening symptoms call 911 or come back to the ER for further evaluation. Prescriptions: New ondansetron 4 mg tablet,disintegrating 4 mg PO Q8H PRN (Reason: nausea and vomiting) Qty: 7 0RF No Action oxycodone-acetaminophen [Percocet] 5-325 mg tablet 1 tab PO Q6H PRN (Reason: pain) Qty: 20 0RF amoxicillin-pot clavulanate [Augmentin] 875-125 mg tablet 1 tab PO BID Qty: 20 0RF naproxen 500 mg tablet 500 mg PO BID PRN (Reason: pain) Qty: 30 0RF cyclobenzaprine 10 mg tablet 10 mg PO TID PRN (Reason: muscle spasm) Qty: 14 0RF cephalexin 500 mg capsule 500 mg PO QID 7 Days Qty: 28 0RF doxycycline hyclate 100 mg tablet 100 mg PO BID 7 Days Qty: 14 0RF Stand Alone Forms: Work/School Release
[2022-04-05] MEDS: ondansetron HCL 4 MG/2 ML VIAL IVPUSH (09:10)
[2022-04-05] MEDS: 0.9 % Sodium Chloride 1,000 ML 999 ML IVCONT (09:10)
[2022-04-05 09:15] LABS: MANUAL DIFF FLAG NO
[2022-04-05 09:16] LABS: Basophils Percent Auto 0.7 % (0-2); Eosinophils Absolute Auto 0.2 X10*3/uL (0.0-0.4); Eosinophils Percent Auto 5.9 % (0-4); Hematocrit 40.5 % (42.0-52.0); Hemoglobin 13.7 g/dl (14.0-18.0); Imm Gran Abs Auto 0.01 X10*3/uL (0.00-0.03); Imm Gran Pct Auto 0.2 % (0.0-0.4); Lymphocytes Absolute Auto 1.5 X10*3/uL (1.2-4.9); Lymphocytes Percent Auto 35.8 % (20-40); Mean Corpuscular HGB Conc 33.8 g/dl (31.0-36.0); Mean Corpuscular Hemoglobin 28.7 pg (27.0-33.0); Mean Corpuscular Volume 84.9 fL (80.0-98.0); Mean Platelet Volume 9.5 fL (9.4-12.4); Monocytes Absolute Auto 0.4 X10*3/uL (0.1-1.2); Monocytes Percent Auto 8.9 % (2-11); Neutrophils Percent Auto 48.5 % (45-73); Platelet Count 166 X10*3/uL (160-400); Red Blood Count 4.77 X10*6/uL (4.60-5.80); White Blood Count 4.1 X10*3/uL (4.8-10.8)
[2022-04-05 09:29] LABS: COVID-19 Test Negative (Negative); IDNOW Serial# 16C4AD1C
[2022-04-05 09:34] LABS: Alanine Aminotransferase 21 U/L (0-40); Albumin Level 3.9 g/dL (3.5-5.0); Alkaline Phosphatase 74 U/L (39-117); Anion Gap 12 (12-20); Aspartate Amino Transferase 15 U/L (5-37); Bilirubin Direct < 0.2 mg/dL (0.0-0.5); Bilirubin Total 0.2 mg/dL (0.0-1.0); Blood Urea Nitrogen 11 mg/dL (9-16); Calcium 8.6 mg/dL (8.4-10.2); Carbon Dioxide 27 mmol/L (22-29); Chloride 105 mmol/L (96-108); Creatinine Clr Calc Pharmacy 138.6; Estimated Glomerular Filt Rate > 60; Glucose Random 108 mg/dL (60-115); Lipase 155 U/L (8-78); Magnesium 1.8 mg/dL (1.6-2.6); Potassium 4.1 mmol/L (3.3-5.1); Sodium 140 mmol/L (135-145)
[2022-04-05 09:43] VITALS: BP 124/70; PULSE 50; RESP 177; TEMP 36.6; O2SAT 98
[2022-04-05 11:26] LABS: Appearance Urine Clear; Color Urine Yellow; Glucose Urine UA Negative (Negative); Leukocyte Esterase Urine Negative (Negative); Nitrite Urine Negative (Negative); Urine Blood Negative (Negative); Urine Ketones Negative (Negative); Urine Protein Negative (Neg-Trace)
[2022-04-05 11:44] LABS: Amphetamine Screen Urine Not Detected (Not Detect); Barbiturates, Urine Not Detected (Not Detect); Benzodiazepines Screen Urine Not Detected (Not Detect); Cannabinoid Screen Urine POSITIVE (Not Detect); Cocaine Screen Urine Not Detected (Not Detect); Fentanyl, urine POSITIVE (Not Detect); Opiate Screen Urine POSITIVE (Not Detect); Phencyclidine Screen Urine Not Detected (Not Detect)
== END 2022-04-05 11:25 | disposition home or self-care (01) ==
PROVIDERS: Physician Assistant; Emergency Provider Student in an Organized Health Care Education/Training Program
DX: K52.9 Noninfective gastroenteritis and colitis, unspecified (principal); R11.2 Nausea with vomiting, unspecified; Z20.822 Contact with and (suspected) exposure to COVID-19; F12.90 Cannabis use, unspecified, uncomplicated; Z79.899 Other long term (current) drug therapy
CPT/HCPCS: 80048; 80076; 80307; 81003; 83690; 83735; 85025; 87635; 96361; 96374; 99284; J2405

== ENCOUNTER 2022-04-17 02:45 | Emergency (ER) | payer OTHER, SELFPAY ==
[2022-04-17 02:49] VITALS: BP 137/77; PULSE 60; RESP 18; TEMP 37.3; O2SAT 98; BMI 23.6
[2022-04-17 03:17] LABS: MANUAL DIFF FLAG NO
[2022-04-17 03:19] LABS: Eosinophils Absolute Auto 0.1 X10*3/uL (0.0-0.4); Eosinophils Percent Auto 3.2 % (0-4); Hematocrit 41.3 % (42.0-52.0); Hemoglobin 14.5 g/dl (14.0-18.0); Lymphocytes Absolute Auto 1.5 X10*3/uL (1.2-4.9); Lymphocytes Percent Auto 36.1 % (20-40); Mean Corpuscular HGB Conc 35.1 g/dl (31.0-36.0); Mean Corpuscular Hemoglobin 30.3 pg (27.0-33.0); Mean Corpuscular Volume 86.4 fL (80.0-98.0); Mean Platelet Volume 10.4 fL (9.4-12.4); Monocytes Absolute Auto 0.3 X10*3/uL (0.1-1.2); Monocytes Percent Auto 8.2 % (2-11); Neutrophils Absolute Auto 2.1 x10*3/uL (2.0-8.3); Neutrophils Percent Auto 51.5 % (45-73); Platelet Count 173 X10*3/uL (160-400); Red Blood Count 4.78 X10*6/uL (4.60-5.80); Red Cell Distribution Width 12.3 % (11.0-16.0)
[2022-04-17 03:36] LABS: Alanine Aminotransferase 25 U/L (0-40); Albumin Level 4.5 g/dL (3.5-5.0); Alkaline Phosphatase 73 U/L (39-117); Anion Gap 13 (12-20); Aspartate Amino Transferase 21 U/L (5-37); Bilirubin Total 0.6 mg/dL (0.0-1.0); Blood Urea Nitrogen 12 mg/dL (9-16); Calcium 9.3 mg/dL (8.4-10.2); Carbon Dioxide 28 mmol/L (22-29); Chloride 104 mmol/L (96-108); Creatinine Clr Calc Pharmacy 130.5; Estimated Glomerular Filt Rate > 60; Glucose Random 103 mg/dL (60-115); Potassium 4.2 mmol/L (3.3-5.1); Sodium 141 mmol/L (135-145); Total Protein 6.9 g/dL (6.5-8.0)
== END 2022-04-17 05:43 | disposition left against medical advice (07) ==
PROVIDERS: Emergency Provider Emergency Medicine
DX: R19.7 Diarrhea, unspecified (principal); R11.2 Nausea with vomiting, unspecified
CPT/HCPCS: 36415; 80053; 85025; 99281; 99283

== ENCOUNTER 2022-04-30 11:31 | Emergency (ER) | payer OTHER, SELFPAY | END 2022-04-30 14:56 | disposition left against medical advice (07) | LOC: HO.ED 14:43 | PROVIDERS: Emergency Provider Emergency Medicine | DX: K08.89 Other specified disorders of teeth and supporting structures (principal) ==

== ENCOUNTER 2022-06-06 10:40 | Emergency (ER) | payer OTHER, SELFPAY ==
[2022-06-06 11:37] VITALS: BP 113/62; PULSE 79; RESP 18; TEMP 36.9; O2SAT 97; BMI 23.6
[2022-06-06 12:33] LABS: MANUAL DIFF FLAG NO
[2022-06-06 12:38] LABS: Eosinophils Absolute Auto 0.2 X10*3/uL (0.0-0.4); Eosinophils Percent Auto 4.4 % (0-4); Hematocrit 43.1 % (42.0-52.0); Hemoglobin 14.3 g/dl (14.0-18.0); Lymphocytes Absolute Auto 1.4 X10*3/uL (1.2-4.9); Lymphocytes Percent Auto 36.2 % (20-40); Mean Corpuscular HGB Conc 33.2 g/dl (31.0-36.0); Mean Corpuscular Hemoglobin 28.7 pg (27.0-33.0); Mean Corpuscular Volume 86.4 fL (80.0-98.0); Mean Platelet Volume 10.5 fL (9.4-12.4); Monocytes Absolute Auto 0.2 X10*3/uL (0.1-1.2); Monocytes Percent Auto 5.7 % (2-11); Neutrophils Percent Auto 52.7 % (45-73); Platelet Count 165 X10*3/uL (160-400); Red Blood Count 4.99 X10*6/uL (4.60-5.80); Red Cell Distribution Width 12.5 % (11.0-16.0); White Blood Count 3.9 X10*3/uL (4.8-10.8)
[2022-06-06 13:03] LABS: Anion Gap 17 (12-20); Blood Urea Nitrogen 13 mg/dL (9-16); Calcium 9.2 mg/dL (8.4-10.2); Carbon Dioxide 22 mmol/L (22-29); Chloride 107 mmol/L (96-108); Creatinine Clr Calc Pharmacy 126.4; Estimated Glomerular Filt Rate > 60; Glucose Random 95 mg/dL (60-115); Potassium 4.4 mmol/L (3.3-5.1); Sodium 142 mmol/L (135-145)
[2022-06-06 13:22] LABS: Influenza A PCR NEGATIVE (Negative); Influenza B PCR NEGATIVE (Negative); Resp Syncy Virus RNA Qual PCR NEGATIVE (Negative); SARS COV2 PCR INHOUSE NEGATIVE (Negative)
[2022-06-06 19:51] VITALS: BP 128/59; PULSE 45; RESP 16; TEMP 36.2; O2SAT 98
--- NOTE | 2022-06-06 21:09 | ED_ITS ---
HPI - Nausea/Vomiting/Diarrhea General Chief complaint: Nausea/Vomiting/Diarrhea Stated complaint: vomiting Time Seen by Provider: 06/06/22 20:29 Source: patient Mode of arrival: ambulatory Limitations: no limitations History of Present Illness HPI Narrative: 27-year-old male with no pertinent past medical history presents to the emergency department with vomiting and diarrhea since this morning. Patient reports this morning he woke up and vomited once. Additionally patient reports that he has had diarrhea 3-4 times since this morning. Denies blood in stool or hematemesis. Patient has had epigastric cramping since this morning which he attributes to not eating. Tells me not having abd pain at this time. Patient reports that he has been around his stepdaughter who has been sick with the same symptoms. Has been eating and drinking w/o difficulties. Reports he was feeling worse this morning but wanted to be evaluated and needs a work note. Denies fever, chills, headaches, dizziness, weakness, cp, sob, vision changes Related Data Previous Rx's Medication Instructions Recorded amoxicillin 875 mg-potassium 1 tab PO BID #20 tabs 07/01/21 clavulanate 125 mg tablet (Augmentin) oxycodone-acetaminophen 5 mg-325 1 tab PO Q6H PRN pain #20 tabs 07/01/21 mg tablet (Percocet) cyclobenzaprine 10 mg tablet 10 mg PO TID PRN muscle spasm #14 12/21/21 tabs naproxen 500 mg tablet 500 mg PO BID PRN pain #30 tabs 12/21/21 cephalexin 500 mg capsule 500 mg PO QID 7 days #28 caps 03/26/22 doxycycline hyclate 100 mg tablet 100 mg PO BID 7 days #14 tabs 03/26/22 ondansetron 4 mg disintegrating 4 mg PO Q8H PRN nausea and 04/05/22 tablet vomiting #7 tabs loperamide 2 mg capsule 2 mg PO QID PRN loose stool #10 06/06/22 caps ondansetron 4 mg disintegrating 4 mg PO Q6H PRN nausea and 06/06/22 tablet vomiting #14 tabs Allergies Allergy/AdvReac Type Severity Reaction Status Date / Time No Known Allergies Allergy Verified 04/17/22 02:49 [No Known Allergies*] Review of Systems Review of Systems: Constitutional : No Weight loss, No Fever, No Chills, No Fatigue, No Malaise ENT/Mouth : No sore throat, No Rhinorrhea Eyes: No Eye Pain, No Swelling, No Redness Cardiovascular : No Chest Pain, No SOB, No Dyspnea on Exertion, No Orthopnea, No Edema, No Palpitations Respiratory : No Cough, No Sputum, No Wheezing Gastrointestinal : No Nausea, + Vomiting, + Diarrhea, No Constipation, + abdominal Pain, No Hematochezia, No Melena Genitourinary : No Dysuria, No Urinary Frequency, No Hematuria, Musculoskeletal : No joint pain, No Myalgias, No Joint Swelling Skin : No Skin Lesions, No rash Neuro : No Weakness, No Numbness, No Dizziness, No Headache Psych : No Anxiety/Panic, No Depression All other systems reviewed and are negative Yes all other systems are reviewed and are negative [facility] Past Medical History Attestation statement: The following information was validated with the patient. Source: old records reviewed Medical History Bipolar 1 disorder Depression Patient denies significant medical history Seizure Surgical History No significant past surgical history Social History Social History Substance Use Type: Opiates Advance Directives: No Physical Exam Vital Signs: Vital Signs: Last Vital Signs Temp 97.2 F 06/06/22 19:51 Pulse 45 L 06/06/22 19:51 Resp 16 06/06/22 19:51 BP 128/59 L 06/06/22 19:51 Pulse Ox 98 06/06/22 19:51 O2 Del Method 06/06/22 19:51 BMI result Body Mass Index 23.6 vss Appearance: Alert.? Oriented X3.? No acute distress.? Head: Normocephalic, atraumatic, no step-offs or deformities Eyes: Pupils equal, round and reactive to light.?? CVS: Normal heart rate and rhythm.? Pulses normal.? Respiratory: No respiratory distress.? Breath sounds normal.? Abdomen: Soft and nontender.?+BS in all 4 quadrants. Negative mcburneys, murphys, rosving. Skin: Skin warm and dry.? Normal skin color.? Normal skin turgor.? Extremities: No lower extremity edema.? No calf ttp. 5/5 strength to bilateral upper and lower extremities Back: Negative cva b/l. Neuro: Oriented X 3.? No motor deficit.? No sensory deficit. CN 2-12 intact Course Reevaluation(s) Reevaluation #1: patient noted to have a leukopenia however has been present in previous visits, no acute findings on CBC, chemistry without electrolyte abnormalities requiring intervention. Patient's lipase within normal limits, unlikely pancreatitis. Labs were obtained in triage and there was no transaminases however patient not having right upper quadrant tenderness or tenderness abdomen on exam, patient has been here for a long time and tells me he is feeling better and would like to go home. Urine clean. Flu/RSV negative. Patient tolerating p.o., tolerating p.o. challenge without difficulties, tells me he is feeling a lot better after GI cocktail. At this time patient will be discharged home with strict return precautions advised to return with any new or worsening symptoms, educated on worrisome signs and symptoms and when to return. This time I feel comfortable with discharge home with prompt PCP follow-up in GI follow-up if necessary. Time: 22:39 MDM - Nausea/Vomiting/Diarrhea MDM Narrative Medical decision making narrative: 2100 27-year-old male presents to the emergency department with vomiting and diarrhea since this morning. Benign physical exam Likley viral. Unlikle acute abdomen, c.diff, appendicits, cholecystitis, pancreatits or cyclic vomiting Plan- labs. Patient non tender on exam no need for imaging. Will obtain urine to ro uti/cysitits although unlikley. Will ro electrolyte abnormalities. Medical Records Attestation: I reviewed the patient's medical records. Lab Data Attestation: I reviewed the patient's lab results. Result diagrams: 06/06/22 12:22 06/06/22 12:22 Labs: Lab Results 06/06/22 06/06/22 06/06/22 Range/Units 12:22 12:22 12:22 WBC 3.9 L (4.8-10.8) X10*3/uL RBC 4.99 (4.60-5.80) X10*6/uL Hgb 14.3 (14.0-18.0) g/dl Hct 43.1 (42.0-52.0) % MCV 86.4 (80.0-98.0) fL MCH 28.7 (27.0-33.0) pg MCHC 33.2 (31.0-36.0) g/dl RDW 12.5 (11.0-16.0) % Plt Count 165 (160-400) X10*3/uL MPV 10.5 (9.4-12.4) fL Immature Gran % (Auto) 0.0 (0.0-0.4) % Neut % (Auto) 52.7 (45-73) % Lymph % (Auto) 36.2 (20-40) % [facility] % (Auto) 5.7 (2-11) % Eos % (Auto) 4.4 H (0-4) % Baso % (Auto) 1.0 (0-2) % Lymph # (Auto) 1.4 (1.2-4.9) X10*3/uL [facility] # (Auto) 0.2 (0.1-1.2) X10*3/uL Eos # (Auto) 0.2 (0.0-0.4) X10*3/uL Baso # (Auto) 0.0 (0.0-0.2) X10*3/uL Abs Immat Gran (auto) 0.00 (0.00-0.03) X10*3/uL Absolute Neuts (auto) 2.0 (2.0-8.3) x10*3/uL Absolute Nucleated RBC 0.000 (0.0-0.012) X10*3/uL Nucleated RBC % (auto) 0.0 (0.0-0.2) /100WBC Sodium 142 (135-145) mmol/L Potassium 4.4 (3.3-5.1) mmol/L Chloride 107 (96-108) mmol/L Carbon Dioxide 22 (22-29) mmol/L Anion Gap 17 (12-20) BUN 13 (9-16) mg/dL Creatinine 0.87 (0.5-1.4) mg/dL Estim Creat Clear Calc 126.4 Estimated GFR > 60 Random Glucose 95 (60-115) mg/dL Calcium 9.2 (8.4-10.2) mg/dL Lipase 24 (8-78) U/L Influenza Type A (PCR) NEGATIVE (Negative) Influenza Type B (PCR) NEGATIVE (Negative) RSV RNA Qual (PCR) NEGATIVE (Negative) SARS-CoV-2 RNA (RT-PCR) NEGATIVE (Negative) Critical Care Time Critical Care Time Critical Care Time: No Discharge Plan Discharge Clinical Impression: Nausea & vomiting, Diarrhea, Abdominal pain Patient Disposition: Home, Self-Care Instructions: Acute Nausea and Vomiting (ED), Acute Diarrhea (ED), Abdominal Pain (ED) Additional Instructions: Take your medications as prescribed. If you were prescribed antibiotics today, it is important that you take your medication to their entirety, do not skip any doses, do not finish them early. Follow-up with your primary care provider this week. If symptoms persist please follow-up with gastroenterology. Return to the emergency department with new or worsening symptoms. Such as fevers, chills, chest pain, shortness of breath, nausea, vomiting, dizziness, headache, vision changes, lethargy , weakness, blood in stool, inability to eat or drink, severe diarrhea or constipation In case of emergency call 911 Prescriptions: New ondansetron 4 mg tablet,disintegrating 4 mg PO Q6H PRN (Reason: nausea and vomiting) Qty: 14 0RF loperamide 2 mg capsule 2 mg PO QID PRN (Reason: loose stool) Qty: 10 0RF No Action oxycodone-acetaminophen [Percocet] 5-325 mg tablet 1 tab PO Q6H PRN (Reason: pain) Qty: 20 0RF amoxicillin-pot clavulanate [Augmentin] 875-125 mg tablet 1 tab PO BID Qty: 20 0RF naproxen 500 mg tablet 500 mg PO BID PRN (Reason: pain) Qty: 30 0RF cyclobenzaprine 10 mg tablet 10 mg PO TID PRN (Reason: muscle spasm) Qty: 14 0RF cephalexin 500 mg capsule 500 mg PO QID 7 Days Qty: 28 0RF doxycycline hyclate 100 mg tablet 100 mg PO BID 7 Days Qty: 14 0RF ondansetron 4 mg tablet,disintegrating 4 mg PO Q8H PRN (Reason: nausea and vomiting) Qty: 7 0RF Referrals: [facility] – [place] [facility] [Provider Group] - 1 week Physician,Unknown J [Primary Care Provider] - 2 days Stand Alone Forms: Work/School Release
[2022-06-06 21:47] LABS: Lipase 24 U/L (8-78)
[2022-06-06] MEDS: Ondansetron ODT 4 MG TAB.RAPDIS TRANSLINGU (22:43)
[2022-06-06] MEDS: Loperamide HCl 2 MG CAPSULE PO (22:44)
[2022-06-06] MEDS: PHENobarb/Hyoscy/Atropine/Scop 10 ML ELIXIR PO (22:44)
[2022-06-06] MEDS: Magnesium Hydrox/Alum Hydrox 30 ML ORAL.SUSP PO (22:44)
== END 2022-06-06 22:52 | disposition home or self-care (01) ==
PROVIDERS: Physician Assistant; Emergency Provider Student in an Organized Health Care Education/Training Program
DX: R11.2 Nausea with vomiting, unspecified (principal); R19.7 Diarrhea, unspecified; Z20.822 Contact with and (suspected) exposure to COVID-19; Z79.899 Other long term (current) drug therapy
CPT/HCPCS: 0241U; 80048; 83690; 85025; 99283; 99284

== ENCOUNTER 2022-06-18 06:15 | Emergency (ER) | payer OTHER, SELFPAY ==
--- NOTE | ~2022-06-18 | CT_ITS ---
EXAMINATION: CT ABDOMEN AND PELVIS WITH CONTRAST CLINICAL INFORMATION: Abdominal pain. COMPARISON: 09/06/2020 CT scan of the abdomen and pelvis. TECHNIQUE: Multidetector volumetric images were obtained from the superior aspect of the liver through the pubic symphysis following administration 85 mL of Omnipaque 350 intravenous contrast. Sagittal and coronal reformatted images were obtained on the technologist's workstation. Oral contrast: No This CT examination was performed using dose optimization techniques as appropriate, variously including the following: *Automated exposure control *Adjustment of mA and/or kV according to patient size (this includes techniques or standardized protocols for targeted exams where dose is matched to indication/reason for exam; i.e. extremities or head) *Use of iterative reconstruction technique DLP: 384 mGy-cm FINDINGS: LUNG BASES: The visualized lung bases are unremarkable. LIVER, GALLBLADDER, AND BILIARY TREE: Unremarkable. PANCREAS: Unremarkable. SPLEEN: Unremarkable. ADRENAL GLANDS: Unremarkable. KIDNEYS AND URETERS: The kidneys are normal in size, shape, and attenuation. No hydronephrosis, hydroureter, or calculi seen. No perinephric stranding. BLADDER: Unremarkable. GASTROINTESTINAL TRACT: The stomach and small bowel unremarkable. The appendix is not confidently identified. No evidence for acute appendicitis. The colon shows mild to moderate stool distally to the rectum without surrounding abnormality. ABDOMINAL WALL: No significant hernia is appreciated. LYMPH NODES: No lymphadenopathy. VASCULAR: Unremarkable. PELVIC VISCERA: Unremarkable. OSSEOUS STRUCTURES: Unremarkable. CT/CT abdomen pelvis w IV con IMPRESSION: 1. No acute intra-abdominal/pelvic abnormality to explain the patient's symptoms. 2. Mild to moderate colonic stool burden. Overall this is similar to the previous study.
[2022-06-18 06:18] VITALS: BP 133/83; PULSE 70; RESP 17; TEMP 36.7; O2SAT 98; BMI 22.1
[2022-06-18 06:31] LABS: MANUAL DIFF FLAG NO
[2022-06-18 06:33] LABS: Basophils Percent Auto 0.8 % (0-2); Eosinophils Absolute Auto 0.1 X10*3/uL (0.0-0.4); Eosinophils Percent Auto 3.7 % (0-4); Hematocrit 41.8 % (42.0-52.0); Hemoglobin 14.2 g/dl (14.0-18.0); Lymphocytes Absolute Auto 1.4 X10*3/uL (1.2-4.9); Lymphocytes Percent Auto 36.9 % (20-40); Mean Corpuscular Hemoglobin 29.1 pg (27.0-33.0); Mean Corpuscular Volume 85.7 fL (80.0-98.0); Mean Platelet Volume 9.8 fL (9.4-12.4); Monocytes Absolute Auto 0.3 X10*3/uL (0.1-1.2); Monocytes Percent Auto 6.8 % (2-11); Neutrophils Percent Auto 51.8 % (45-73); Platelet Count 148 X10*3/uL (160-400); Red Blood Count 4.88 X10*6/uL (4.60-5.80); Red Cell Distribution Width 12.2 % (11.0-16.0); White Blood Count 3.8 X10*3/uL (4.8-10.8)
[2022-06-18 06:35] LABS: Appearance Urine Turbid; Color Urine Yellow; Glucose Urine UA Negative (Negative); Leukocyte Esterase Urine Trace (Negative); Nitrite Urine Negative (Negative); PH 6.5 (5.0-9.0); Specific Gravity - Urine 1.025 (1.005-1.025); UMIC TRIGGER UACC YES; Urine Blood Negative (Negative); Urine Ketones Negative (Negative); Urine Protein Negative (Neg-Trace)
[2022-06-18 06:40] LABS: Bacteria Urine None Seen (None Seen); Hyaline Casts Urine 0-2 /LPF (0-2); RBC Urine 0-2 /HPF (0-2); Squamous Epithelial Cell Urine 0-2 /HPF (0-2); WBC Urine 0-5 /HPF (0-5)
[2022-06-18 06:52] LABS: Alanine Aminotransferase 24 U/L (0-40); Albumin Level 4.6 g/dL (3.5-5.0); Alkaline Phosphatase 65 U/L (39-117); Anion Gap 17 (12-20); Aspartate Amino Transferase 21 U/L (5-37); Bilirubin Total 0.4 mg/dL (0.0-1.0); Blood Urea Nitrogen 9 mg/dL (9-16); Calcium 9.2 mg/dL (8.4-10.2); Carbon Dioxide 23 mmol/L (22-29); Chloride 103 mmol/L (96-108); Creatinine Clr Calc Pharmacy 130.6; Estimated Glomerular Filt Rate > 60; Glucose Random 117 mg/dL (60-115); Lipase 19 U/L (8-78); Magnesium 1.7 mg/dL (1.6-2.6); Potassium 4.1 mmol/L (3.3-5.1); Sodium 139 mmol/L (135-145); Total Protein 6.8 g/dL (6.5-8.0)
[2022-06-18 07:09] LABS: Influenza A PCR NEGATIVE (Negative); Influenza B PCR NEGATIVE (Negative); Resp Syncy Virus RNA Qual PCR NEGATIVE (Negative); SARS COV2 PCR INHOUSE NEGATIVE (Negative)
--- NOTE | 2022-06-18 08:12 | ED_ITS ---
HPI - Nausea/Vomiting/Diarrhea General Chief complaint: Nausea/Vomiting/Diarrhea Stated complaint: excessive diarrhea Time Seen by Provider: 06/18/22 07:00 History of Present Illness HPI Narrative: Patient is a 27-year-old male who presents today with having nausea vomiting diarrhea. Diarrhea is mostly brown in color. There is no fever no chills. Positive generalized malaise. Positive cough, positive congestion, positive generalized malaise. Patient is from home. MD elicited complaint: nausea Related Data Previous Rx's Medication Instructions Recorded amoxicillin 875 mg-potassium 1 tab PO BID #20 tabs 07/01/21 clavulanate 125 mg tablet (Augmentin) oxycodone-acetaminophen 5 mg-325 1 tab PO Q6H PRN pain #20 tabs 07/01/21 mg tablet (Percocet) cyclobenzaprine 10 mg tablet 10 mg PO TID PRN muscle spasm #14 12/21/21 tabs naproxen 500 mg tablet 500 mg PO BID PRN pain #30 tabs 12/21/21 cephalexin 500 mg capsule 500 mg PO QID 7 days #28 caps 03/26/22 doxycycline hyclate 100 mg tablet 100 mg PO BID 7 days #14 tabs 03/26/22 ondansetron 4 mg disintegrating 4 mg PO Q8H PRN nausea and 04/05/22 tablet vomiting #7 tabs loperamide 2 mg capsule 2 mg PO QID PRN loose stool #10 06/06/22 caps ondansetron 4 mg disintegrating 4 mg PO Q6H PRN nausea and 06/06/22 tablet vomiting #14 tabs ondansetron 4 mg disintegrating 4 mg PO TID PRN nausea and 06/18/22 tablet vomiting 5 days #10 tabs Allergies Allergy/AdvReac Type Severity Reaction Status Date / Time No Known Allergies Allergy Verified 06/18/22 06:18 [No Known Allergies*] Review of Systems Review of Systems: Positive nausea vomiting diarrhea Yes all other systems are reviewed and are negative PMFSH Past Medical History Attestation statement: The following information was validated with the patient. Medical History Bipolar 1 disorder Depression Patient denies significant medical history Seizure Surgical History No significant past surgical history Social History Social History Substance Use Type: Opiates Advance Directives: No Physical Exam Vital Signs: Vital Signs: Last Vital Signs Temp 98.1 F 06/18/22 06:18 Pulse 52 06/18/22 08:53 Resp 16 06/18/22 08:53 BP 126/66 06/18/22 08:53 Pulse Ox 99 06/18/22 08:53 O2 Del Method 06/18/22 08:53 BMI result Body Mass Index 22.1 Appearance: Alert. Oriented X3. No acute distress. Eyes: Pupils equal, round and reactive to light. ENT: Pharynx normal. Neck: Normal inspection. Neck supple. No lymph nodes noted. No crepitus CVS: Normal heart rate and rhythm. Pulses normal. Normal S1 and S2 Respiratory: No respiratory distress. Breath sounds normal. No Wheezing. No rales Abdomen: Soft and nontender. No rigidity. No distention. good BS x4 Skin: Skin warm and dry. Normal skin color. Normal skin turgor. Extremities: No lower extremity edema. Neurovascular intact to all extremities. No Lacerations. No Rash Neuro: Oriented X 3. No motor deficit. No sensory deficit. Moving all extermities. No slurred speech Medications Administered Discontinued Medications Generic Name Dose Route Start Last Admin Trade Name Freq PRN Reason Stop Dose Admin Sodium Chloride 1,000 mls @ 999 mls/hr 06/18/22 08:15 06/18/22 10:00 Ns IV 06/18/22 09:15 Infused .Q1H1M TUNDE Infusion Iohexol 100 ml 06/18/22 09:13 06/18/22 09:14 Iohexol 350 Mg/Ml 100 Ml Infus..Btl IV 06/18/22 09:14 85 ml ONCE ONE Administration MDM - Nausea/Vomiting/Diarrhea MDM Narrative Medical decision making narrative: CT scan of the abdomen pelvis showed no obstruction no abscess no perforation. Patient's electrolytes unremarkable. Repeat abdominal exam is soft nontender. Will discharge patient home encourage fluids Zofran for nausea Medical Records Attestation: I reviewed the patient's medical records. Lab Data Attestation: I reviewed the patient's lab results. Result diagrams: 06/18/22 06:25 06/18/22 06:25 Labs: Lab Results 06/18/22 06/18/22 06/18/22 Range/Units 06:24 06:25 06:25 WBC 3.8 L (4.8-10.8) X10*3/uL RBC 4.88 (4.60-5.80) X10*6/uL Hgb 14.2 (14.0-18.0) g/dl Hct 41.8 L (42.0-52.0) % MCV 85.7 (80.0-98.0) fL MCH 29.1 (27.0-33.0) pg MCHC 34.0 (31.0-36.0) g/dl RDW 12.2 (11.0-16.0) % Plt Count 148 L (160-400) X10*3/uL MPV 9.8 (9.4-12.4) fL Immature Gran % (Auto) 0.0 (0.0-0.4) % Neut % (Auto) 51.8 (45-73) % Lymph % (Auto) 36.9 (20-40) % [place] % (Auto) 6.8 (2-11) % Eos % (Auto) 3.7 (0-4) % Baso % (Auto) 0.8 (0-2) % Lymph # (Auto) 1.4 (1.2-4.9) X10*3/uL [place] # (Auto) 0.3 (0.1-1.2) X10*3/uL Eos # (Auto) 0.1 (0.0-0.4) X10*3/uL Baso # (Auto) 0.0 (0.0-0.2) X10*3/uL Abs Immat Gran (auto) 0.00 (0.00-0.03) X10*3/uL Absolute Neuts (auto) 2.0 (2.0-8.3) x10*3/uL Absolute Nucleated RBC 0.000 (0.0-0.012) X10*3/uL Nucleated RBC % (auto) 0.0 (0.0-0.2) /100WBC Sodium 139 (135-145) mmol/L Potassium 4.1 (3.3-5.1) mmol/L Chloride 103 (96-108) mmol/L Carbon Dioxide 23 (22-29) mmol/L Anion Gap 17 (12-20) BUN 9 (9-16) mg/dL Creatinine 0.81 (0.5-1.4) mg/dL Estim Creat Clear Calc 130.6 Estimated GFR > 60 Random Glucose 117 H (60-115) mg/dL Calcium 9.2 (8.4-10.2) mg/dL Magnesium 1.7 (1.6-2.6) mg/dL Total Bilirubin 0.4 (0.0-1.0) mg/dL AST 21 (5-37) U/L ALT 24 (0-40) U/L Alkaline Phosphatase 65 (39-117) U/L Total Protein 6.8 (6.5-8.0) g/dL Albumin 4.6 (3.5-5.0) g/dL Lipase 19 (8-78) U/L Urine Color Urine Appearance Urine pH (5.0-9.0) Ur Specific [place] (1.005-1.025) Urine Protein (Neg-Trace) mg/dL Urine Glucose (UA) (Negative) mg/dL Urine Ketones (Negative) mg/dL Urine Blood (Negative) Urine Nitrite (Negative) Ur Leukocyte Esterase (Negative) Urine RBC (0-2) /HPF Urine WBC (0-5) /HPF Ur Squamous Epith Cells (0-2) /HPF Urine Bacteria (None Seen) Hyaline Casts (0-2) /LPF Influenza Type A (PCR) NEGATIVE (Negative) Influenza Type B (PCR) NEGATIVE (Negative) RSV RNA Qual (PCR) NEGATIVE (Negative) SARS-CoV-2 RNA (RT-PCR) NEGATIVE (Negative) 06/18/22 Range/Units 06:29 WBC (4.8-10.8) X10*3/uL RBC (4.60-5.80) X10*6/uL Hgb (14.0-18.0) g/dl Hct (42.0-52.0) % MCV (80.0-98.0) fL MCH (27.0-33.0) pg MCHC (31.0-36.0) g/dl RDW (11.0-16.0) % Plt Count (160-400) X10*3/uL MPV (9.4-12.4) fL Immature Gran % (Auto) (0.0-0.4) % Neut % (Auto) (45-73) % Lymph % (Auto) (20-40) % [place] % (Auto) (2-11) % Eos % (Auto) (0-4) % Baso % (Auto) (0-2) % Lymph # (Auto) (1.2-4.9) X10*3/uL [place] # (Auto) (0.1-1.2) X10*3/uL Eos # (Auto) (0.0-0.4) X10*3/uL Baso # (Auto) (0.0-0.2) X10*3/uL Abs Immat Gran (auto) (0.00-0.03) X10*3/uL Absolute Neuts (auto) (2.0-8.3) x10*3/uL Absolute Nucleated RBC (0.0-0.012) X10*3/uL Nucleated RBC % (auto) (0.0-0.2) /100WBC Sodium (135-145) mmol/L Potassium (3.3-5.1) mmol/L Chloride (96-108) mmol/L Carbon Dioxide (22-29) mmol/L Anion Gap (12-20) BUN (9-16) mg/dL Creatinine (0.5-1.4) mg/dL Estim Creat Clear Calc Estimated GFR Random Glucose (60-115) mg/dL Calcium (8.4-10.2) mg/dL Magnesium (1.6-2.6) mg/dL Total Bilirubin (0.0-1.0) mg/dL AST (5-37) U/L ALT (0-40) U/L Alkaline Phosphatase (39-117) U/L Total Protein (6.5-8.0) g/dL Albumin (3.5-5.0) g/dL Lipase (8-78) U/L Urine Color Yellow Urine Appearance Turbid Urine pH 6.5 (5.0-9.0) Ur Specific [place] 1.025 (1.005-1.025) Urine Protein Negative (Neg-Trace) mg/dL Urine Glucose (UA) Negative (Negative) mg/dL Urine Ketones Negative (Negative) mg/dL Urine Blood Negative (Negative) Urine Nitrite Negative (Negative) Ur Leukocyte Esterase Trace H (Negative) Urine RBC 0-2 (0-2) /HPF Urine WBC 0-5 (0-5) /HPF Ur Squamous Epith Cells 0-2 (0-2) /HPF Urine Bacteria None Seen (None Seen) Hyaline Casts 0-2 (0-2) /LPF Influenza Type A (PCR) (Negative) Influenza Type B (PCR) (Negative) RSV RNA Qual (PCR) (Negative) SARS-CoV-2 RNA (RT-PCR) (Negative) Discharge Plan Discharge Clinical Impression: Gastroenteritis Patient Disposition: Home, Self-Care Instructions: Gastroenteritis (ED), Acute Nausea and Vomiting (ED) Prescriptions: New ondansetron 4 mg tablet,disintegrating 4 mg PO TID PRN (Reason: nausea and vomiting) 5 Days Qty: 10 0RF No Action oxycodone-acetaminophen [Percocet] 5-325 mg tablet 1 tab PO Q6H PRN (Reason: pain) Qty: 20 0RF amoxicillin-pot clavulanate [Augmentin] 875-125 mg tablet 1 tab PO BID Qty: 20 0RF ondansetron 4 mg tablet,disintegrating 4 mg PO Q6H PRN (Reason: nausea and vomiting) Qty: 14 0RF loperamide 2 mg capsule 2 mg PO QID PRN (Reason: loose stool) Qty: 10 0RF naproxen 500 mg tablet 500 mg PO BID PRN (Reason: pain) Qty: 30 0RF cyclobenzaprine 10 mg tablet 10 mg PO TID PRN (Reason: muscle spasm) Qty: 14 0RF cephalexin 500 mg capsule 500 mg PO QID 7 Days Qty: 28 0RF doxycycline hyclate 100 mg tablet 100 mg PO BID 7 Days Qty: 14 0RF ondansetron 4 mg tablet,disintegrating 4 mg PO Q8H PRN (Reason: nausea and vomiting) Qty: 7 0RF Referrals: Physician,Unknown J [Primary Care Provider] -
[2022-06-18 08:53] VITALS: BP 126/66; PULSE 52; RESP 16; O2SAT 99
[2022-06-18] MEDS: 0.9 % Sodium Chloride 1,000 ML 999 ML IV (08:55)
[2022-06-18] MEDS: iohexoL 350 MG/ML 100 ML INFUS..BTL IV (09:14)
== END 2022-06-18 11:01 | disposition home or self-care (01) ==
PROVIDERS: Emergency Provider Emergency Medicine Emergency Medical Services
DX: K52.9 Noninfective gastroenteritis and colitis, unspecified (principal); Z20.822 Contact with and (suspected) exposure to COVID-19
CPT/HCPCS: 0241U; 36415; 74177; 80053; 81001; 83690; 83735; 85025; 96360; 99284; Q9967

== ENCOUNTER 2022-09-10 14:46 | Emergency (ER) | payer OTHER, SELFPAY ==
[2022-09-10 16:43] VITALS: BP 119/52; PULSE 65; RESP 18; TEMP 36.6; O2SAT 98; BMI 25.1
--- NOTE | 2022-09-10 16:43 | ED_ITS ---
HPI - General Adult General Chief complaint: Skin/Abscess/Foreign Body <AMANDA Torres - Last Filed: 09/10/22 19:48> Stated complaint: Abscess <AMANDA Torres - Last Filed: 09/10/22 19:48> Time Seen by Provider: 09/10/22 18:17 <AMANDA Torres - Last Filed: 09/10/22 19:48> Source: patient <AMANDA Nicole Last Filed: 09/11/22 10:07> Mode of arrival: ambulatory <AMANDA Nicole Last Filed: 09/11/22 10:07> Limitations: no limitations <AMANDA Nicole Last Filed: 09/11/22 10:07> History of Present Illness HPI narrative: Patient is a 27 year old assigned male at with no reported medical history presenting to the emergency department today with an abscess in his groin area. Patient states that he gets abscess where he shaves his pubic hair sometimes and now he has another one. Patient denies any dizziness, lightheadedness, abdominal pain, nausea, vomiting, fever, chills, blurry vision, double vision, loss of vision, chest pain, difficulty breathing, shortness of breath, back pain, night sweats, pain with urination, increased urinary frequency, increased urinary urgency, blood in his urine or stool, syncope or a near syncopal episode, recent trauma or falls, bowel incontinence, bladder incontinence, bowel retention, bladder retention, or any other complaints at this time. <AMANDA Nicole - Last Filed: 09/11/22 10:07> Onset (ago): day(s) (2) <AMANDA Nicole - Last Filed: 09/11/22 10:07> Radiation: non-radiation <AMANDA Nicole Last Filed: 09/11/22 10:07> Severity: mild <AMANDA Nicole - Last Filed: 09/11/22 10:07> Severity scale (1-10): 2 <AMANDA Nicole Last Filed: 09/11/22 10:07> Relieving factors: none <AMANDA Nicole Last Filed: 09/11/22 10:07> Exacerbating factors: none <AMANDA Nicole Last Filed: 09/11/22 10:07> Associated symptoms: denies other symptoms <AMANDA Nicole - Last Filed: 09/11/22 10:07> Treatments prior to arrival: none <AMANDA Nicole - Last Filed: 09/11/22 10:07> Related Data Home medications: Previous Rx's Medication Instructions Recorded amoxicillin 875 mg-potassium 1 tab PO BID #20 tabs 07/01/21 clavulanate 125 mg tablet (Augmentin) oxycodone-acetaminophen 5 mg-325 1 tab PO Q6H PRN pain #20 tabs 07/01/21 mg tablet (Percocet) cyclobenzaprine 10 mg tablet 10 mg PO TID PRN muscle spasm #14 12/21/21 tabs naproxen 500 mg tablet 500 mg PO BID PRN pain #30 tabs 12/21/21 cephalexin 500 mg capsule 500 mg PO QID 7 days #28 caps 03/26/22 doxycycline hyclate 100 mg tablet 100 mg PO BID 7 days #14 tabs 03/26/22 ondansetron 4 mg disintegrating 4 mg PO Q8H PRN nausea and 04/05/22 tablet vomiting #7 tabs loperamide 2 mg capsule 2 mg PO QID PRN loose stool #10 06/06/22 caps ondansetron 4 mg disintegrating 4 mg PO Q6H PRN nausea and 06/06/22 tablet vomiting #14 tabs ondansetron 4 mg disintegrating 4 mg PO TID PRN nausea and 06/18/22 tablet vomiting 5 days #10 tabs cephalexin 500 mg capsule 500 mg PO Q6H 7 days #28 caps 09/10/22 doxycycline hyclate 100 mg tablet 100 mg PO BID 7 days #14 tabs 09/10/22 <AMANDA Torres - Last Filed: 09/10/22 19:48> Allergies/adverse reactions: Allergies Allergy/AdvReac Type Severity Reaction Status Date / Time No Known Allergies Allergy Verified 06/18/22 06:18 [No Known Allergies*] <AMANDA Torres - Last Filed: 09/10/22 19:48> Review of Systems Constitutional: Constitutional: Reports no additional constitutional complaints, Denies chills, Denies fever(s) and Denies night sweats <AMANDA Nicole - Last Filed: 09/11/22 10:07> Eyes: Eyes: Reports no additional eye complaints, Denies blurry vision, Denies change in vision, Denies diplopia, Denies eye discharge, Denies loss of vision and Denies eye pain <AMANDA Nicole Last Filed: 09/11/22 10:07> ENT: Denies dizziness <AMANDA Nicole - Last Filed: 09/11/22 10:07> Cardiovascular: Cardiovascular: Reports no additional cardiovascular complaints, Denies chest pain, Denies lightheadedness, Denies Loss of Consciousness and Denies dyspnea <AMANDA Nicole - Last Filed: 09/11/22 10:07> Respiratory: Respiratory: Reports no additional respiratory complaints and Denies dyspnea <AMANDA Nicole - Last Filed: 09/11/22 10:07> Gastrointestinal: Gastrointestinal: Reports no additional gastrointestinal complaints, Denies abdominal pain, Denies melena, Denies hematochezia, Denies change in bowel habits and Denies change in stool character <AMANDA Nicole - Last Filed: 09/11/22 10:07> Genitourinary: Genitourinary: Reports no additional male genitourinary complaints, Denies hematuria, Denies oliguria, Denies difficulty urinating, Denies dysuria, Denies urinary frequency, Denies urinary hesitancy, Denies urinary incontinence and Denies urinary urgency <AMANDA Nicole Last Filed: 09/11/22 10:07> Musculoskeletal: Musculoskeletal: Reports no additional musculoskeletal complaints, Denies numbness and Denies tingling <AMANDA Nicole - Last Filed: 09/11/22 10:07> Integumentary/Breasts: Comments: abscess to groin area <AMANDA Nicole Last Filed: 09/11/22 10:07> Neurologic: Denies dizziness, Denies loss of vision, Denies numbness and Denies tingling <AMANDA Nicole Last Filed: 09/11/22 10:07> Psychiatric: Psychiatric: Reports no additional psychiatric complaints <AMANDA Nicole Last Filed: 09/11/22 10:07> Endocrine: Endocrine: Reports no additional endocrine complaints <AMANDA Nicole - Last Filed: 09/11/22 10:07> Hematologic/Lymphatic: Hematologic/Lymphatic: Reports no additional hematologic/lymphatic complaints <AMANDA Nicole - Last Filed: 09/11/22 10:07> Allergic/Immunologic: Allergic/Immunologic: Reports no additional allergic/immunologic complaints <AMANDA Nicole - Last Filed: 09/11/22 10:07> PMFSH Past Medical History Attestation statement: The following information was validated with the patient. <AMANDA Nicole - Last Filed: 09/11/22 10:07> Source: old records reviewed and nursing notes reviewed <AMANDA Nicole - Last Filed: 09/11/22 10:07> Medical History: Medical History Bipolar 1 disorder Depression Patient denies significant medical history Seizure <AMANDA Torres - Last Filed: 09/10/22 19:48> Surgical History: Surgical History No significant past surgical history <AMANDA Torres - Last Filed: 09/10/22 19:48> Social History Social History: Social History Alcohol intake: current Alcohol intake frequency: holidays/special occasions only Smoked in Last 30 Days: Yes Use of substances other than those prescribed or required for medical reasons: No Substance Use Type: Marijuana Advance Directives: No <AMANDA Torres - Last Filed: 09/10/22 19:48> Physical Exam ED Vital Signs: Vital Signs - 24 hr 09/10/22 16:43 Temperature 98 F Pulse Rate 65 Respiratory Rate 18 Blood Pressure 119/52 L Pulse Oximetry 98 Oxygen Delivery Method Room Air BMI result Body Mass Index 25.1 <AMANDA Torres - Last Filed: 09/10/22 19:48> Vital Signs - 24 hr 09/10/22 16:43 Temperature 98 F Pulse Rate 65 Respiratory Rate 18 Blood Pressure 119/52 L Pulse Oximetry 98 Oxygen Delivery Method Room Air BMI result Body Mass Index 25.1 <AMANDA Nicole - Last Filed: 09/11/22 10:07> Vital Signs - 24 hr 09/10/22 16:43 Temperature 98 F Pulse Rate 65 Respiratory Rate 18 Blood Pressure 119/52 L Pulse Oximetry 98 Oxygen Delivery Method Room Air BMI result Body Mass Index 25.1 <Hussein Emanuel MD - Last Filed: 09/13/22 09:16> Const General: cooperative, no acute distress, alert and awake <AMANDA Nicole - Last Filed: 09/11/22 10:07> Nutritional Appearance: well nourished <AMANDA Nicole - Last Filed: 09/11/22 10:07> Orientation/consciousness: patient oriented x3 <AMANDA Nicole - Last Filed: 09/11/22 10:07> Limitations: no limitations <AMANDA Nicole - Last Filed: 09/11/22 10:07> HENMT Head: Yes normal to inspection and Yes atraumatic <AMANDA Nicole - Last Filed: 09/11/22 10:07> Ears: hearing grossly normal bilaterally and external ears normal <AMANDA Nicole - Last Filed: 09/11/22 10:07> General nose exam: Normal external nose present, no nasal discharge noted and no epistaxis <AMANDA Nicole - Last Filed: 09/11/22 10:07> Face and sinus: Yes normal facial exam, No abrasion and No laceration <AMANDA Nicole - Last Filed: 09/11/22 10:07> Mouth: Normal oral and palatal mucosa present, no drooling and no muffled voice <AMANDA Nicole - Last Filed: 09/11/22 10:07> Eyes General: appearance normal, both eyes and all related structures <AMANDA Nicole - Last Filed: 09/11/22 10:07> Periorbital: periorbital findings normal <AMANDA Nicole - Last Filed: 09/11/22 10:07> Eyelids: Yes eyelids normal <AMANDA Nicole - Last Filed: 09/11/22 10:07> Conjunctivae: conjunctivae normal <AMANDA Nicole - Last Filed: 09/11/22 10:07> Pupils: Equal, round and reactive pupils present <AMANDA Nicole - Last Filed: 09/11/22 10:07> EOM: EOMs intact bilaterally <María Souza PA - Last Filed: 09/11/22 10:07> Neck Neck: Yes normal visual inspection, Yes full ROM and Yes no lymphadenopathy <María Souza PA - Last Filed: 09/11/22 10:07> Chest Chest palpation & inspection: normal inspection of the chest <María Souza PA - Last Filed: 09/11/22 10:07> Resp Effort & Inspection: normal respiratory effort and able to speak in complete sentences <María Souza PA - Last Filed: 09/11/22 10:07> GI Inspection: Yes normal to inspection <María Souza PA - Last Filed: 09/11/22 10:07> Skin Other: 2cm swollen area in the pubic region that is warm and erythematous with mild fluctuance <María Souza PA - Last Filed: 09/11/22 10:07> Neuro General: patient oriented x3 and moves all extremities <María Souza PA - Last Filed: 09/11/22 10:07> Cranial nerves: Yes Equal, round and reactive pupils present <María Souza PA - Last Filed: 09/11/22 10:07> Cognition (Neuro): normal cognition <María Souza PA - Last Filed: 09/11/22 10:07> Motor exam (neuro): 5/5 motor strength present throughout <María Souza PA - Last Filed: 09/11/22 10:07> Sensory Exam: Normal double simultaneous stimulation for sensation <María Souza PA - Last Filed: 09/11/22 10:07> Coordination: [id number] test normal <María Souza PA - Last Filed: 09/11/22 10:07> Extrem General: Yes normal to inspection, Yes full ROM and Yes capillary refill normal <María Souza PA - Last Filed: 09/11/22 10:07> Psych Appearance: grossly normal <María Souza PA - Last Filed: 09/11/22 10:07> Mental Status: mental status grossly normal <María SouzaAMANDA - Last Filed: 09/11/22 10:07> Affect: normal affect <AMANDA Nicole - Last Filed: 09/11/22 10:07> Attitude: cooperative <AMANDA Nicole - Last Filed: 09/11/22 10:07> Thought process: Normal thought process present <AMANDA Nicole - Last Filed: 09/11/22 10:07> Thought content: Normal thought content present <AMANDA Nicole - Last Filed: 09/11/22 10:07> Insight: Good insight present (Psych) <AMANDA Nicole - Last Filed: 09/11/22 10:07> Course Course Course Narrative: RME: Patient presents to the ED for pubic abscess for the past two days. Patient tried to open it himself. Will be evalauted in the [facility] <AMANDA Torres - Last Filed: 09/10/22 19:48> Procedures Abscess I/D Site: other (pubic area) <AMANDA Nicole - Last Filed: 09/11/22 10:07> Local Anesthetic: lidocaine 1% <AMANDA Nicole - Last Filed: 09/11/22 10:07> Amount of anesthesia used (mL): 5 <AMANDA Nicole - Last Filed: 09/11/22 10:07> Technique: needle aspiration <AMANDA Nicole - Last Filed: 09/11/22 10:07> Amount of fluid expressed (mL): 15 <AMANDA Nicole - Last Filed: 09/11/22 10:07> Sent for culture/gram staining?: No <AMANDA Nicole - Last Filed: 09/11/22 10:07> Irrigation: No <AMANDA Nicole - Last Filed: 09/11/22 10:07> Packing used?: none <AMANDA Nicole - Last Filed: 09/11/22 10:07> Medical Decision Making Medical Decision Making MDM Narrative: Patient is a 27 year old assigned male at with no reported medical history presenting to the emergency department today with a pubic abscess. Patient's physical exam showed a 2cm pubic abscess. I explained my physical exam findings to the patient. I answered all questions asked by the patient. I incised and drained the abscessed area, per the procedure note, without incident. I stressed the importance of the patient taking his medication as prescribed. I stressed the importance of the patient following up with his primary care provider and a general surgeon. I stressed the importance of the patient returning to the emergency department immediately if his symptoms were to worsen or if he were to develop any dizziness, shortness of breath, difficulty breathing, chest pain, blurry vision, loss of vision, nausea, vomiting, abdominal pain, fever, chills, back pain, or any other complaints. Patient verbalized agreement and understanding with this treatment plan and discharge. <AMANDA Nicole - Last Filed: 09/11/22 10:07> Differential Diagnosis Differential Diagnoses: The differential diagnosis associated with the presentation includes <AMANDA Nicole - Last Filed: 09/11/22 10:07> abscess <AMANDA Nicole - Last Filed: 09/11/22 10:07> Attestation Attending Attestation: I reviewed [employer]/PA/Resident note, assessment and plan. I agree with the documentation, assessment and plan unless otherwise stated. <Hussein Emanuel MD - Last Filed: 09/13/22 09:16> Discharge Plan Discharge Clinical Impression: Abscess <AMANDA Torres - Last Filed: 09/10/22 19:48> Patient Disposition: Home, Self-Care <AMANDA Torres - Last Filed: 09/10/22 19:48> Instructions: Abscess (ED) <AMANDA Torres - Last Filed: 09/10/22 19:48> Additional Instructions: Follow up with your primary care provider. Return to the emergency department immediately if your symptoms worsen or if you develop any dizziness, shortness of breath, difficulty breathing, chest pain, blurry vision, loss of vision, nausea, vomiting, abdominal pain, fever, chills, back pain, or any other complaints. <AMANDA Torres - Last Filed: 09/10/22 19:48> Prescriptions: New cephalexin 500 mg capsule 500 mg PO Q6H 7 Days Qty: 28 0RF doxycycline hyclate 100 mg tablet 100 mg PO BID 7 Days Qty: 14 0RF No Action oxycodone-acetaminophen [Percocet] 5-325 mg tablet 1 tab PO Q6H PRN (Reason: pain) Qty: 20 0RF amoxicillin-pot clavulanate [Augmentin] 875-125 mg tablet 1 tab PO BID Qty: 20 0RF ondansetron 4 mg tablet,disintegrating 4 mg PO Q6H PRN (Reason: nausea and vomiting) Qty: 14 0RF loperamide 2 mg capsule 2 mg PO QID PRN (Reason: loose stool) Qty: 10 0RF naproxen 500 mg tablet 500 mg PO BID PRN (Reason: pain) Qty: 30 0RF cyclobenzaprine 10 mg tablet 10 mg PO TID PRN (Reason: muscle spasm) Qty: 14 0RF cephalexin 500 mg capsule 500 mg PO QID 7 Days Qty: 28 0RF doxycycline hyclate 100 mg tablet 100 mg PO BID 7 Days Qty: 14 0RF ondansetron 4 mg tablet,disintegrating 4 mg PO Q8H PRN (Reason: nausea and vomiting) Qty: 7 0RF ondansetron 4 mg tablet,disintegrating 4 mg PO TID PRN (Reason: nausea and vomiting) 5 Days Qty: 10 0RF <AMANDA Torres - Last Filed: 09/10/22 19:48> Referrals: [facility] [place] General Surgeons [Provider Group] (Call to establish and follow up with a general surgeon, if this issue persists. ) [facility] [place] [facility] [Provider Group] (Call to establish and follow up with a primary care provider. If you already have a primary care provider, please follow up with them. ) [facility] [place] [facility] [place] [Provider Group] (Call to establish and follow up with a primary care provider. If you already have a primary care provider, please follow up with them. ) [facility] [place] [facility] [Provider Group] (Call to establish and follow up with a primary care provider. If you already have a primary care provider, please follow up with them. ) <AMANDA Torres - Last Filed: 09/10/22 19:48> Stand Alone Forms: Work/School Release <AMANDA Torres - Last Filed: 09/10/22 19:48> Interventions: ED Discharge Assessment Last Done: 09/10/22 18:50 <AMANDA Torres - Last Filed: 09/10/22 19:48> Discharge Date/Time: 09/10/22 18:50 <AMANDA Torres - Last Filed: 09/10/22 19:48> Print Language: Bermudian <AMANDA Torers - Last Filed: 09/10/22 19:48>
== END 2022-09-10 18:50 | disposition home or self-care (01) ==
PROVIDERS: Emergency Provider Emergency Medicine
DX: L02.214 Cutaneous abscess of groin (principal); F12.90 Cannabis use, unspecified, uncomplicated
CPT/HCPCS: 10060; 99282; 99284

== ENCOUNTER 2022-09-12 08:03 | Emergency (ER) | payer OTHER, SELFPAY ==
[2022-09-12 08:06] VITALS: BP 129/53; PULSE 70; RESP 18; TEMP 36.1; O2SAT 98; BMI 25.1
[2022-09-12 08:33] VITALS: BP 127/69; PULSE 57; RESP 12; TEMP 36.9; O2SAT 98
--- NOTE | 2022-09-12 08:48 | ED_ITS ---
HPI - Skin/Abscess/Foreign Bdy General Chief complaint: Skin/Abscess/Foreign Body Stated complaint: returning for same abscess problem Time Seen by Provider: 09/12/22 08:24 Source: patient Mode of arrival: ambulatory History of Present Illness HPI narrative: 27-year-old male with past medical history of bipolar, depression, seizures, suprapubic abscess x3 s/p I&D in the ED on 09/10 presenting to ED complaining of worsening abscess, however popped on way to ED. Reports compliance with previously prescribed Keflex and doxycycline. Denies fever, chills, abdominal pain, nausea/vomiting. MD complaint: abscess/boil Onset (ago): day(s) Related Data Previous Rx's Medication Instructions Recorded amoxicillin 875 mg-potassium 1 tab PO BID #20 tabs 07/01/21 clavulanate 125 mg tablet (Augmentin) oxycodone-acetaminophen 5 mg-325 1 tab PO Q6H PRN pain #20 tabs 07/01/21 mg tablet (Percocet) cyclobenzaprine 10 mg tablet 10 mg PO TID PRN muscle spasm #14 12/21/21 tabs naproxen 500 mg tablet 500 mg PO BID PRN pain #30 tabs 12/21/21 cephalexin 500 mg capsule 500 mg PO QID 7 days #28 caps 03/26/22 doxycycline hyclate 100 mg tablet 100 mg PO BID 7 days #14 tabs 03/26/22 ondansetron 4 mg disintegrating 4 mg PO Q8H PRN nausea and 04/05/22 tablet vomiting #7 tabs loperamide 2 mg capsule 2 mg PO QID PRN loose stool #10 06/06/22 caps ondansetron 4 mg disintegrating 4 mg PO Q6H PRN nausea and 06/06/22 tablet vomiting #14 tabs ondansetron 4 mg disintegrating 4 mg PO TID PRN nausea and 06/18/22 tablet vomiting 5 days #10 tabs cephalexin 500 mg capsule 500 mg PO Q6H 7 days #28 caps 09/10/22 doxycycline hyclate 100 mg tablet 100 mg PO BID 7 days #14 tabs 09/10/22 Allergies Allergy/AdvReac Type Severity Reaction Status Date / Time No Known Allergies Allergy Verified 06/18/22 06:18 [No Known Allergies*] Review of Systems Review of Systems: Constitutional: No Fever, No Chills ENT/Mouth: No Ear Pain, No Nasal Congestion, No sore throat, No Rhinorrhea, No Swallowing Difficulty Cardiovascular: No Chest Pain, No SOB Respiratory: No Cough, No Sputum Gastrointestinal: No Nausea, No Vomiting, No Diarrhea, No Constipation, No Abdominal pain Genitourinary: No Dysuria, No Urinary Frequency, No Hematuria, No Flank Pain Musculoskeletal: No joint pain, No Myalgias, No Joint Swelling Skin: + Skin Lesions, No rash Neuro: No Weakness, No Numbness, No Paresthesias Yes all other systems are reviewed and are negative Constitutional: Constitutional: Reports as per [facility] Past Medical History Attestation statement: The following information was validated with the patient. Medical History Bipolar 1 disorder Depression Patient denies significant medical history Seizure Surgical History No significant past surgical history Social History Social History Alcohol intake: current Alcohol intake frequency: holidays/special occasions only Smoked in Last 30 Days: Yes Use of substances other than those prescribed or required for medical reasons: No Substance Use Type: Marijuana Advance Directives: No Physical Exam Vital Signs: Vital Signs: Last Vital Signs Temp 98.5 F 09/12/22 08:33 Pulse 57 09/12/22 08:33 Resp 12 09/12/22 08:33 BP 127/69 09/12/22 08:33 Pulse Ox 98 09/12/22 08:33 O2 Del Method 09/12/22 08:33 BMI result Body Mass Index 25.1 Const: General: cooperative, healthy appearing and no acute distress Orientation/consciousness: patient oriented x3 Limitations: no limitations HEENT: Head: Yes normal to inspection and Yes atraumatic Ears: hearing grossly normal bilaterally General nose exam: Normal external nose present Face and sinus: Yes normal facial exam Eyes: General: appearance normal, both eyes and all related structures EOM: EOMs intact bilaterally Neck: Neck: Yes normal visual inspection and Yes no meningeal signs Resp: Effort & Inspection: normal respiratory effort and no respiratory d istress Cardio: Rate: regular rate Heart sounds: S1 normal heart sound present and S2 normal heart sound present GI: Inspection: Yes normal to inspection Palpation (GI): Soft to palpation, nontender, no guarding and not rigid : Other: + small open indurated abscess noted to suprapubic area. Scant amount of drainage expressed. Mild surrounding erythema. Tender to palpation. No fluctuance. Skin: Rashes: no rashes Neuro: General: patient oriented x3, tone normal and no meningeal signs Gait exam (Neuro): Normal gait present Extrem: General: Yes normal to inspection Medical Decision Making Medical Decision Making [facility] Narrative: 27-year-old male with past medical history of bipolar, depression, seizures, suprapubic abscess x3 s/p I&D in the ED on 09/10 presenting to ED complaining of worsening abscess, however popped on way to ED. on exam vital signs stable, NAD, nontoxic appearing, physical exam as noted above. Scant amount of pus/bloody drainage expressed. Abscess open. No fluctuance, streaking or evidence of Tj's gangrene. Discussed with patient needed continued compliance with antibiotics, warm compresses, Tylenol/Motrin Results discussed with patient including worrisome signs and symptoms and strict return precautions, and when to return to the emergency department. They verbalized understanding and feel safe for discharge at this time. Differential Diagnosis Differential Diagnoses: The differential diagnosis associated with the presentation includes As above External Record Review Prior ED record Prescription Management I considered prescription management with: Pain Medication and Antibiotic Discharge Plan Discharge Clinical Impression: Abscess of skin or subcutaneous tissue Patient Disposition: Home, Self-Care Instructions: Abscess (ED) Additional Instructions: Continue taking previously prescribed antibiotics. Apply warm compresses daily Take Tylenol Motrin for pain Please follow-up with her doctor If symptoms persist or worsen, area recollects, you have fever, increasing or unremitting pain return to the ED Prescriptions: No Action oxycodone-acetaminophen [Percocet] 5-325 mg tablet 1 tab PO Q6H PRN (Reason: pain) Qty: 20 0RF amoxicillin-pot clavulanate [Augmentin] 875-125 mg tablet 1 tab PO BID Qty: 20 0RF ondansetron 4 mg tablet,disintegrating 4 mg PO Q6H PRN (Reason: nausea and vomiting) Qty: 14 0RF loperamide 2 mg capsule 2 mg PO QID PRN (Reason: loose stool) Qty: 10 0RF naproxen 500 mg tablet 500 mg PO BID PRN (Reason: pain) Qty: 30 0RF cyclobenzaprine 10 mg tablet 10 mg PO TID PRN (Reason: muscle spasm) Qty: 14 0RF cephalexin 500 mg capsule 500 mg PO QID 7 Days Qty: 28 0RF doxycycline hyclate 100 mg tablet 100 mg PO BID 7 Days Qty: 14 0RF ondansetron 4 mg tablet,disintegrating 4 mg PO Q8H PRN (Reason: nausea and vomiting) Qty: 7 0RF ondansetron 4 mg tablet,disintegrating 4 mg PO TID PRN (Reason: nausea and vomiting) 5 Days Qty: 10 0RF cephalexin 500 mg capsule 500 mg PO Q6H 7 Days Qty: 28 0RF doxycycline hyclate 100 mg tablet 100 mg PO BID 7 Days Qty: 14 0RF Referrals: ED Physician,Generic [Physician] - Physician,None [Primary Care Provider] - Stand Alone Forms: Work/School Release Discharge Date/Time: 09/12/22 09:06
== END 2022-09-12 09:06 | disposition home or self-care (01) ==
PROVIDERS: Emergency Provider Emergency Medicine
DX: L02.211 Cutaneous abscess of abdominal wall (principal)
CPT/HCPCS: 99282; 99284

== ENCOUNTER 2022-11-19 14:58 | Emergency (ER) | payer MEDICAID, SELFPAY ==
[2022-11-19 15:02] VITALS: BP 130/76; PULSE 90; RESP 18; TEMP 37.1; O2SAT 99; BMI 23.6
--- NOTE | 2022-11-19 15:03 | ED.NAVMDI ---
HPI - Nausea/Vomiting/Diarrhea General Stated complaint: Vomiting Related Data Previous Rx's Medication Instructions Recorded amoxicillin 875 mg-potassium 1 tab PO BID #20 tabs 07/01/21 clavulanate 125 mg tablet (Augmentin) oxycodone-acetaminophen 5 mg-325 1 tab PO Q6H PRN pain #20 tabs 07/01/21 mg tablet (Percocet) cyclobenzaprine 10 mg tablet 10 mg PO TID PRN muscle spasm #14 12/21/21 tabs naproxen 500 mg tablet 500 mg PO BID PRN pain #30 tabs 12/21/21 cephalexin 500 mg capsule 500 mg PO QID 7 days #28 caps 03/26/22 doxycycline hyclate 100 mg tablet 100 mg PO BID 7 days #14 tabs 03/26/22 ondansetron 4 mg disintegrating 4 mg PO Q8H PRN nausea and 04/05/22 tablet vomiting #7 tabs loperamide 2 mg capsule 2 mg PO QID PRN loose stool #10 06/06/22 caps ondansetron 4 mg disintegrating 4 mg PO Q6H PRN nausea and 06/06/22 tablet vomiting #14 tabs ondansetron 4 mg disintegrating 4 mg PO TID PRN nausea and 06/18/22 tablet vomiting 5 days #10 tabs cephalexin 500 mg capsule 500 mg PO Q6H 7 days #28 caps 09/10/22 doxycycline hyclate 100 mg tablet 100 mg PO BID 7 days #14 tabs 09/10/22 Allergies Allergy/AdvReac Type Severity Reaction Status Date / Time No Known Allergies Allergy Verified 06/18/22 06:18 [No Known Allergies*] [facility] Past Medical History Medical History Bipolar 1 disorder Depression Patient denies significant medical history Seizure Surgical History No significant past surgical history Social History Social History Alcohol intake: current Alcohol intake frequency: holidays/special occasions only Substance Use Type: Marijuana Course Course Course Narrative: RME - 27 yo male presents to the ER for evaluation of N/V/D that started today. [place] fine yesterday. Vomiting bile this morning. Abd abd soreness due to vomiting. Plan: labs, antiemetics, PO trial Discharge Plan Discharge Prescriptions: No Action oxycodone-acetaminophen [Percocet] 5-325 mg tablet 1 tab PO Q6H PRN (Reason: pain) Qty: 20 0RF amoxicillin-pot clavulanate [Augmentin] 875-125 mg tablet 1 tab PO BID Qty: 20 0RF ondansetron 4 mg tablet,disintegrating 4 mg PO Q6H PRN (Reason: nausea and vomiting) Qty: 14 0RF loperamide 2 mg capsule 2 mg PO QID PRN (Reason: loose stool) Qty: 10 0RF naproxen 500 mg tablet 500 mg PO BID PRN (Reason: pain) Qty: 30 0RF cyclobenzaprine 10 mg tablet 10 mg PO TID PRN (Reason: muscle spasm) Qty: 14 0RF cephalexin 500 mg capsule 500 mg PO QID 7 Days Qty: 28 0RF doxycycline hyclate 100 mg tablet 100 mg PO BID 7 Days Qty: 14 0RF ondansetron 4 mg tablet,disintegrating 4 mg PO Q8H PRN (Reason: nausea and vomiting) Qty: 7 0RF ondansetron 4 mg tablet,disintegrating 4 mg PO TID PRN (Reason: nausea and vomiting) 5 Days Qty: 10 0RF cephalexin 500 mg capsule 500 mg PO Q6H 7 Days Qty: 28 0RF doxycycline hyclate 100 mg tablet 100 mg PO BID 7 Days Qty: 14 0RF
[2022-11-19] MEDS: Ondansetron ODT 4 MG TAB.RAPDIS TRANSLINGU (16:04)
[2022-11-19 16:15] LABS: MANUAL DIFF FLAG NO
[2022-11-19 16:20] LABS: Basophils Percent Auto 0.2 % (0-2); Eosinophils Absolute Auto 0.1 X10*3/uL (0.0-0.4); Eosinophils Percent Auto 2.6 % (0-4); Hematocrit 39.9 % (42.0-52.0); Hemoglobin 13.7 g/dl (14.0-18.0); Lymphocytes Absolute Auto 1.3 X10*3/uL (1.2-4.9); Mean Corpuscular HGB Conc 34.3 g/dl (31.0-36.0); Mean Corpuscular Hemoglobin 28.7 pg (27.0-33.0); Mean Corpuscular Volume 83.5 fL (80.0-98.0); Mean Platelet Volume 9.7 fL (9.4-12.4); Monocytes Absolute Auto 0.3 X10*3/uL (0.1-1.2); Monocytes Percent Auto 6.6 % (2-11); Neutrophils Absolute Auto 2.6 x10*3/uL (2.0-8.3); Neutrophils Percent Auto 60.6 % (45-73); Platelet Count 163 X10*3/uL (160-400); Red Blood Count 4.78 X10*6/uL (4.60-5.80); Red Cell Distribution Width 11.8 % (11.0-16.0); White Blood Count 4.2 X10*3/uL (4.8-10.8)
[2022-11-19 16:28] LABS: Appearance Urine Cloudy; Color Urine Dark Yellow; Glucose Urine UA Negative (Negative); Leukocyte Esterase Urine Trace (Negative); Nitrite Urine Negative (Negative); Specific Gravity - Urine 1.025 (1.005-1.025); UMIC TRIGGER UACC YES; Urine Blood Negative (Negative); Urine Ketones Trace mg/dL (Negative); Urine Protein Negative (Neg-Trace)
[2022-11-19 16:31] LABS: Bacteria Urine None Seen (None Seen); Hyaline Casts Urine 0-2 /LPF (0-2); RBC Urine 0-2 /HPF (0-2); Squamous Epithelial Cell Urine 0-2 /HPF (0-2); WBC Urine 0-5 /HPF (0-5)
[2022-11-19 16:44] LABS: Alanine Aminotransferase 15 U/L (0-40); Albumin Level 4.2 g/dL (3.5-5.0); Alkaline Phosphatase 66 U/L (39-117); Anion Gap 10 (12-20); Aspartate Amino Transferase 16 U/L (5-37); Bilirubin Direct 0.2 mg/dL (0.0-0.5); Bilirubin Total 0.7 mg/dL (0.0-1.0); Blood Urea Nitrogen 8 mg/dL (9-16); Calcium 8.9 mg/dL (8.4-10.2); Carbon Dioxide 32 mmol/L (22-29); Chloride 103 mmol/L (96-108); Creatinine Clr Calc Pharmacy 132.5; Estimated Glomerular Filt Rate > 60; Glucose Random 100 mg/dL (60-115); Lipase 7 U/L (8-78); Magnesium 1.7 mg/dL (1.6-2.6); Sodium 141 mmol/L (135-145)
[2022-11-19 17:11] VITALS: BP 127/66; PULSE 50; RESP 18; TEMP 36.1; O2SAT 98
[2022-11-19] MEDS: Lidocaine HCl Viscous 2 % 15 ML SOLUTION MUCOUS MEM (17:16)
[2022-11-19] MEDS: Magnesium Hydrox/Alum Hydrox 30 ML ORAL.SUSP PO (17:17)
[2022-11-19] MEDS: PHENobarb/Hyoscy/Atropine/Scop 10 ML ELIXIR PO (17:17)
--- NOTE | 2022-11-19 17:20 | ED_ITS ---
HPI - General Adult General Chief complaint: Nausea/Vomiting/Diarrhea Stated complaint: Vomiting Time Seen by Provider: 11/19/22 16:10 Source: patient Mode of arrival: ambulatory Limitations: no limitations History of Present Illness HPI narrative: 27 yold male presents to the ED for vomitting, diarrhea, and slight nasal congestion. Patient denies any abdominal pain, dysuria, hematuria, flank pain, fever, or chills. Related Data Previous Rx's Medication Instructions Recorded amoxicillin 875 mg-potassium 1 tab PO BID #20 tabs 07/01/21 clavulanate 125 mg tablet (Augmentin) oxycodone-acetaminophen 5 mg-325 1 tab PO Q6H PRN pain #20 tabs 07/01/21 mg tablet (Percocet) cyclobenzaprine 10 mg tablet 10 mg PO TID PRN muscle spasm #14 12/21/21 tabs naproxen 500 mg tablet 500 mg PO BID PRN pain #30 tabs 12/21/21 cephalexin 500 mg capsule 500 mg PO QID 7 days #28 caps 03/26/22 doxycycline hyclate 100 mg tablet 100 mg PO BID 7 days #14 tabs 03/26/22 ondansetron 4 mg disintegrating 4 mg PO Q8H PRN nausea and 04/05/22 tablet vomiting #7 tabs loperamide 2 mg capsule 2 mg PO QID PRN loose stool #10 06/06/22 caps ondansetron 4 mg disintegrating 4 mg PO Q6H PRN nausea and 06/06/22 tablet vomiting #14 tabs ondansetron 4 mg disintegrating 4 mg PO TID PRN nausea and 06/18/22 tablet vomiting 5 days #10 tabs cephalexin 500 mg capsule 500 mg PO Q6H 7 days #28 caps 09/10/22 doxycycline hyclate 100 mg tablet 100 mg PO BID 7 days #14 tabs 09/10/22 ondansetron 4 mg disintegrating 4 mg PO Q6H PRN nausea and 11/19/22 tablet vomiting 2 days #8 tabs Allergies Allergy/AdvReac Type Severity Reaction Status Date / Time No Known Allergies Allergy Verified 06/18/22 06:18 [No Known Allergies*] Review of Systems Review of Systems: vomitting, diarhea, and nasal congestion Yes all other systems are reviewed and are negative PMFSH Past Medical History Medical History Bipolar 1 disorder Depression Patient denies significant medical history Seizure Surgical History No significant past surgical history Social History Social History Alcohol intake: current Alcohol intake frequency: holidays/special occasions only Substance Use Type: Marijuana Advance Directives: No Advance Directives Information Provided: No Physical Exam ED Vital Signs: Vital Signs - 24 hr 11/19/22 15:02 11/19/22 17:11 Temperature 98.7 F 97.0 F Pulse Rate 90 50 Respiratory Rate 18 18 Blood Pressure 130/76 127/66 Pulse Oximetry 99 98 Oxygen Delivery Method Room Air Room Air BMI result Body Mass Index 23.6 Const General: cooperative, healthy appearing, comfortable, no acute distress, well developed, alert, awake and Physically active Orientation/consciousness: oriented to person, oriented to place, oriented to time and patient oriented x3 HENMT Head: Yes normal to inspection, Yes No palpable skull fracture present, Yes normocephalic, Yes atraumatic and No abrasion Ears: hearing grossly normal bilaterally, external ears normal, TM's normal bilaterally, EAC's normal, mastoids normal and no periauricular adenopathy Face and sinus: Yes normal facial exam and Yes sinuses nontender Throat: Yes posterior oropharynx normal, Yes tonsils normal and Yes uvula midline Eyes General: appearance normal, both eyes and all related structures Neck Neck: Yes normal visual inspection, Yes full ROM, Yes no lymphadenopathy, Yes no meningeal signs, Yes trachea midline, Yes supple, No anterior neck swelling and No tender Chest Chest palpation & inspection: normal inspection of the chest and normal palpation of entire chest wall Resp Effort & Inspection: normal respiratory effort and able to speak in complete sentences Auscultation: clear to auscultation bilaterally Cardio Jugular venous distension: no JVD Heart sounds: S1 normal heart sound present and S2 normal heart sound present GI Inspection: Yes normal to inspection and No abdominal wall ecchymosis Palpation (GI): Soft to palpation, not firm, nontender, no guarding and not rigid General: No CVA tenderness and Yes no CVA tenderness Back/Spine/Pelvis Back: no CVA tenderness, No CVA tenderness and No back tenderness Skin General skin exam: no rashes or lesions noted and elasticity normal Neuro General: oriented to person, oriented to place, oriented to time, patient oriented x3, gait normal, tone normal, moves all extremities, no meningeal signs, no focal motor deficits and CN's II-XI intact bilaterally Extrem General: Yes normal to inspection and Yes full ROM Psych Appearance: grossly normal, well kempt and not disheveled Course Course Course Narrative: labs ordered. UA ordered. Zofran ordered Reevaluation(s) Reevaluation #1: Abdomen is bening on palpation. labs ae normal. uA negative UTI. patient feels better after GI cocktail. Not suspecting any cholecsytisis, appendicitis, pancreatis, kidney stones, colitis, diveriticulitis or any other emergent life threatening abdominal etiology. Abdominal CT scan not indicated at this time Time: 17:24 Medications Administered Discontinued Medications Generic Name Dose Route Start Last Admin Trade Name Freq PRN Reason Stop Dose Admin Al Hydroxide/Mg Hydroxide 30 ml 11/19/22 17:07 11/19/22 17:17 Magnesium Hydrox/Alum Hydrox 30 Ml Oral.Susp PO 11/19/22 17:08 30 ml ONCE ONE Administration Belladonna Alkaloids/Phenobarbital 10 ml 11/19/22 17:07 11/19/22 17:17 Phenobarb/Hyoscy/Atropine/Scop 10 Ml Elixir PO 11/19/22 17:08 10 ml ONCE ONE Administration Lidocaine HCl 15 ml 11/19/22 17:07 11/19/22 17:16 Lidocaine Hcl Viscous 2 % 15 Ml Solution MUCOUS MEM 11/19/22 17:08 15 ml ONCE ONE Administration Ondansetron HCl 4 mg 11/19/22 15:04 11/19/22 16:04 Ondansetron Odt 4 Mg Tab.Rapdis TRANSLINGU 11/19/22 15:05 4 mg ONCE ONE Administration Medical Decision Making Medical Decision Making MDM Narrative: 27 yold male presents to the ED for vomitting, and diarrhea without any abdominal pain. labs are normal and patient feels better ater GI cockltail. Differential Diagnosis Differential Diagnoses: The differential diagnosis associated with the presentation includes (gastroenteritis, colitis, appendicitis, cholecytisits, diverituclitis, SBO, pancreatitis) Admission/Observation Consideration of admission/observation: Escalation of care including admission/observation considered Lab Data MDM Lab Attestation statement: I reviewed the patient's lab results. 11/19/22 16:11 11/19/22 16:11 Labs: Lab Results 11/19/22 11/19/22 11/19/22 Range/Units 16:11 16:11 16:17 WBC 4.2 L (4.8-10.8) X10*3/uL RBC 4.78 (4.60-5.80) X10*6/uL Hgb 13.7 L (14.0-18.0) g/dl Hct 39.9 L (42.0-52.0) % MCV 83.5 (80.0-98.0) fL MCH 28.7 (27.0-33.0) pg MCHC 34.3 (31.0-36.0) g/dl RDW 11.8 (11.0-16.0) % Plt Count 163 (160-400) X10*3/uL MPV 9.7 (9.4-12.4) fL Immature Gran % (Auto) 0.0 (0.0-0.4) % Neut % (Auto) 60.6 (45-73) % Lymph % (Auto) 30.0 (20-40) % [place] % (Auto) 6.6 (2-11) % Eos % (Auto) 2.6 (0-4) % Baso % (Auto) 0.2 (0-2) % Lymph # (Auto) 1.3 (1.2-4.9) X10*3/uL [place] # (Auto) 0.3 (0.1-1.2) X10*3/uL Eos # (Auto) 0.1 (0.0-0.4) X10*3/uL Baso # (Auto) 0.0 (0.0-0.2) X10*3/uL Abs Immat Gran (auto) 0.00 (0.00-0.03) X10*3/uL Absolute Neuts (auto) 2.6 (2.0-8.3) x10*3/uL Absolute Nucleated RBC 0.000 (0.0-0.012) X10*3/uL Nucleated RBC % (auto) 0.0 (0.0-0.2) /100WBC Sodium 141 (135-145) mmol/L Potassium 4.0 (3.3-5.1) mmol/L Chloride 103 (96-108) mmol/L Carbon Dioxide 32 H (22-29) mmol/L Anion Gap 10 L (12-20) BUN 8 L (9-16) mg/dL Creatinine 0.83 (0.5-1.4) mg/dL Estim Creat Clear Calc 132.5 Estimated GFR > 60 Random Glucose 100 (60-115) mg/dL Calcium 8.9 (8.4-10.2) mg/dL Magnesium 1.7 (1.6-2.6) mg/dL Total Bilirubin 0.7 (0.0-1.0) mg/dL Direct Bilirubin 0.2 (0.0-0.5) mg/dL AST 16 (5-37) U/L ALT 15 (0-40) U/L Alkaline Phosphatase 66 (39-117) U/L Total Protein 6.0 L (6.5-8.0) g/dL Albumin 4.2 (3.5-5.0) g/dL Lipase 7 L (8-78) U/L Urine Color Dark Yellow Urine Appearance Cloudy Urine pH 6.0 (5.0-9.0) Ur Specific [place] 1.025 (1.005-1.025) Urine Protein Negative (Neg-Trace) mg/dL Urine Glucose (UA) Negative (Negative) mg/dL Urine Ketones Trace (Negative) mg/dL Urine Blood Negative (Negative) Urine Nitrite Negative (Negative) Ur Leukocyte Esterase Trace H (Negative) Urine RBC 0-2 (0-2) /HPF Urine WBC 0-5 (0-5) /HPF Ur Squamous Epith Cells 0-2 (0-2) /HPF Urine Bacteria None Seen (None Seen) Hyaline Casts 0-2 (0-2) /LPF Prescription Management I considered prescription management with: Other (zofran) Discharge Plan Discharge Clinical Impression: Gastroenteritis Patient Disposition: Home, Self-Care Instructions: Gastroenteritis (ED) Additional Instructions: Return to the ED for any abdominal pain, blood in stool, intractable vomitting, fever, chills, dysuria, hematuria, or any other concerning symptoms. Pleae follow up with PCP. Prescriptions: New ondansetron 4 mg tablet,disintegrating 4 mg PO Q6H PRN (Reason: nausea and vomiting) 2 Days Qty: 8 0RF No Action oxycodone-acetaminophen [Percocet] 5-325 mg tablet 1 tab PO Q6H PRN (Reason: pain) Qty: 20 0RF amoxicillin-pot clavulanate [Augmentin] 875-125 mg tablet 1 tab PO BID Qty: 20 0RF ondansetron 4 mg tablet,disintegrating 4 mg PO Q6H PRN (Reason: nausea and vomiting) Qty: 14 0RF loperamide 2 mg capsule 2 mg PO QID PRN (Reason: loose stool) Qty: 10 0RF naproxen 500 mg tablet 500 mg PO BID PRN (Reason: pain) Qty: 30 0RF cyclobenzaprine 10 mg tablet 10 mg PO TID PRN (Reason: muscle spasm) Qty: 14 0RF cephalexin 500 mg capsule 500 mg PO QID 7 Days Qty: 28 0RF doxycycline hyclate 100 mg tablet 100 mg PO BID 7 Days Qty: 14 0RF ondansetron 4 mg tablet,disintegrating 4 mg PO Q8H PRN (Reason: nausea and vomiting) Qty: 7 0RF ondansetron 4 mg tablet,disintegrating 4 mg PO TID PRN (Reason: nausea and vomiting) 5 Days Qty: 10 0RF cephalexin 500 mg capsule 500 mg PO Q6H 7 Days Qty: 28 0RF doxycycline hyclate 100 mg tablet 100 mg PO BID 7 Days Qty: 14 0RF Stand Alone Forms: Work/School Release Interventions: ED Discharge Assessment Last Done: 11/19/22 17:52 Discharge Date/Time: 11/19/22 17:52 Print Language: Beninese
== END 2022-11-19 17:52 | disposition home or self-care (01) ==
PROVIDERS: Physician Assistant; Emergency Provider Emergency Medicine
DX: K52.9 Noninfective gastroenteritis and colitis, unspecified (principal); R11.2 Nausea with vomiting, unspecified
CPT/HCPCS: 36415; 80048; 80076; 81001; 83690; 83735; 85025; 99283; 99284

== ENCOUNTER 2022-11-20 11:37 | Emergency (ER) | payer MEDICAID, SELFPAY ==
[2022-11-20 12:34] VITALS: BP 110/71; PULSE 62; RESP 16; TEMP 36.7; O2SAT 96; BMI 23.6
--- NOTE | 2022-11-20 12:35 | ED.NAVMDI ---
HPI - Nausea/Vomiting/Diarrhea General Chief complaint: Nausea/Vomiting/Diarrhea <AMANDA Pope Last Filed: 11/20/22 12:35> Stated complaint: nausea <AMANDA Pope Last Filed: 11/20/22 12:35> Time Seen by Provider: 11/20/22 13:04 <AMANDA Pope Last Filed: 11/20/22 12:35> Source: patient <AMANDA Rodas Last Filed: 11/20/22 13:56> Mode of arrival: ambulatory <AMANDA Rodas Last Filed: 11/20/22 13:56> Limitations: no limitations <AMANDA Rodas Last Filed: 11/20/22 13:56> History of Present Illness HPI Narrative: 27yo male presenting for nausea and vomiting. Patient was seen in the ED yesterday for the same symptoms. He stated that he couldn't get his zofran prescription at the pharmacy it was sent to yesterday and woke up today with continued nausea and vomiting. Patient stated he had to miss work today due to the symptoms. He denies SOB, chest pain, or fever. <AMANDA Rodas Last Filed: 11/20/22 13:56> MD elicited complaint: nausea and vomiting <AMANDA Rodas Last Filed: 11/20/22 13:56> Onset (ago): day(s) <AMANDA Rodas Last Filed: 11/20/22 13:56> Description of vomiting: bilious <AMANAD Rodas Last Filed: 11/20/22 13:56> Associated nausea: Yes <AMANDA Rodas Last Filed: 11/20/22 13:56> Associated abdominal pain: Yes <AMANDA Rodas Last Filed: 11/20/22 13:56> Location of pain: diffuse <AMANDA Rodas Last Filed: 11/20/22 13:56> Radiation: diffuse <AMANDA Rodas Last Filed: 11/20/22 13:56> Pain consistency: intermittent <AMANDA Rodas Last Filed: 11/20/22 13:56> Quality: cramping <AMANDA Rodas - Last Filed: 11/20/22 13:56> Exacerbating factors: none <AMANDA Rodas Last Filed: 11/20/22 13:56> Relieving factors: none <AMANDA Rodas Last Filed: 11/20/22 13:56> Associated symptoms: nausea/vomiting <AMANDA Rodas Last Filed: 11/20/22 13:56> Related Data Home medications: Previous Rx's Medication Instructions Recorded amoxicillin 875 mg-potassium 1 tab PO BID #20 tabs 07/01/21 clavulanate 125 mg tablet (Augmentin) oxycodone-acetaminophen 5 mg-325 1 tab PO Q6H PRN pain #20 tabs 07/01/21 mg tablet (Percocet) cyclobenzaprine 10 mg tablet 10 mg PO TID PRN muscle spasm #14 12/21/21 tabs naproxen 500 mg tablet 500 mg PO BID PRN pain #30 tabs 12/21/21 cephalexin 500 mg capsule 500 mg PO QID 7 days #28 caps 03/26/22 doxycycline hyclate 100 mg tablet 100 mg PO BID 7 days #14 tabs 03/26/22 ondansetron 4 mg disintegrating 4 mg PO Q8H PRN nausea and 04/05/22 tablet vomiting #7 tabs loperamide 2 mg capsule 2 mg PO QID PRN loose stool #10 06/06/22 caps ondansetron 4 mg disintegrating 4 mg PO TID PRN nausea and 06/18/22 tablet vomiting 5 days #10 tabs cephalexin 500 mg capsule 500 mg PO Q6H 7 days #28 caps 09/10/22 doxycycline hyclate 100 mg tablet 100 mg PO BID 7 days #14 tabs 09/10/22 ondansetron 4 mg disintegrating 4 mg PO Q6H PRN nausea and 11/19/22 tablet vomiting 2 days #8 tabs ondansetron 4 mg disintegrating 4 mg PO Q8H PRN nausea and 11/20/22 tablet vomiting #8 tabs <AMANDA Pope Last Filed: 11/20/22 12:35> Allergies/Adverse reactions: Allergies Allergy/AdvReac Type Severity Reaction Status Date / Time No Known Allergies Allergy Verified 06/18/22 06:18 [No Known Allergies*] <AMANDA Pope - Last Filed: 11/20/22 12:35> Review of Systems Review of Systems: Yes all other systems are reviewed and are negative <AMANDA Rodas - Last Filed: 11/20/22 13:56> Gastrointestinal: Gastrointestinal: Reports nausea <AMANDA Rodas - Last Filed: 11/20/22 13:56> COUNTS INCLUDE 234 BEDS AT THE [facility] Past Medical History Medical History: Medical History Bipolar 1 disorder Depression Patient denies significant medical history Seizure <AMANDA Pope - Last Filed: 11/20/22 12:35> Surgical History: Surgical History No significant past surgical history <AMANDA Pope - Last Filed: 11/20/22 12:35> Social History Social History: Social History Alcohol intake: current Alcohol intake frequency: holidays/special occasions only Substance Use Type: Marijuana Advance Directives: No <AMANDA Pope - Last Filed: 11/20/22 12:35> Physical Exam Vital Signs: Vital Signs: Last Vital Signs Temp 98.0 F 11/20/22 12:34 Pulse 62 11/20/22 12:34 Resp 16 11/20/22 12:34 BP 110/71 11/20/22 12:34 Pulse Ox 96 11/20/22 12:34 O2 Del Method Room Air 11/20/22 12:34 BMI result Body Mass Index 23.6 <AMANDA Pope - Last Filed: 11/20/22 12:35> Vital Signs: Last Vital Signs Temp 98.0 F 11/20/22 12:34 Pulse 62 11/20/22 12:34 Resp 16 11/20/22 12:34 BP 110/71 11/20/22 12:34 Pulse Ox 96 11/20/22 12:34 O2 Del Method Room Air 11/20/22 12:34 BMI result Body Mass Index 23.6 <AMANDA Rodas - Last Filed: 11/20/22 13:56> Appearance: Alert. Oriented X3. No acute distress. HEENT: normal inspection CVS: Normal heart rate and rhythm. Pulses normal. Respiratory: No respiratory distress. Abd: soft, nontender, +BS Skin: Skin warm and dry. Normal skin color. Normal skin turgor. No rashes. Neuro: Oriented X 3. No motor deficit. No sensory deficit. <AMANDA Rodas - Last Filed: 11/20/22 13:56> Course Course Course Narrative: This is an RME: Additional HPI, ROS, PE not included below will be deferred to primary provider. 27-year-old presents for nausea, vomiting, diarrhea of congestion, seen here yesterday and diagnosed with gastroenteritis, not getting better he did not waste picker the script from the pharmacy because they were sent to the wrong pharmacy. He comes in again today for worsening symptoms. Has not been able to eat or drink he tells me. Physical exam benign. Vital signs stable. Plan basic labs <AMANDA Pope - Last Filed: 11/20/22 12:35> Medications Administered Discontinued Medications Generic Name Dose Route Start Last Admin Trade Name Freq PRN Reason Stop Dose Admin Ondansetron HCl 4 mg 11/20/22 12:35 11/20/22 12:39 Ondansetron Odt 4 Mg Tab.Rapdis TRANSLINGU 11/20/22 12:36 4 mg ONCE ONE Administration <AMANDA Pope - Last Filed: 11/20/22 12:35> Medications Administered Discontinued Medications Generic Name Dose Route Start Last Admin Trade Name Freq PRN Reason Stop Dose Admin Ondansetron HCl 4 mg 11/20/22 12:35 11/20/22 12:39 Ondansetron Odt 4 Mg Tab.Rapdis TRANSLINGU 11/20/22 12:36 4 mg ONCE ONE Administration <AMANDA Rodas - Last Filed: 11/20/22 13:56> Medical Decision Making Medical Decision Making MDM Narrative: Patient is a 27yo male presenting for nausea and vomiting. Patient's physical exam was unremarkable. Patients labs were unremarkable. Patient was given zofran and endorsed significant improvement of symptoms. His zofran prescription was resent to the pharmacy confirmed by the patient and he was instructed to take it as directed. He was instructed to follow up with his primary care doctor and to call 911 or return if he develops new or worsening symptoms. <AMANDA Rodas - Last Filed: 11/20/22 13:56> Differential Diagnosis Differential Diagnoses: The differential diagnosis associated with the presentation includes <AMANDA Rodas - Last Filed: 11/20/22 13:56> viral gastroenteritis, salmonella, ligonella, shigella, giardia <AMANDA Rodas - Last Filed: 11/20/22 13:56> Lab Data MDM Lab Attestation statement: I reviewed the patient's lab results. <AMANDA Rodas - Last Filed: 11/20/22 13:56> no significant metabolic derangement <AMANDA Rodas - Last Filed: 11/20/22 13:56> Result Diagrams: 11/20/22 13:04 11/20/22 13:04 <AMANDA Pope - Last Filed: 11/20/22 12:35> Labs: Lab Results 11/20/22 11/20/22 Range/Units 13:04 13:04 WBC 4.1 L (4.8-10.8) X10*3/uL RBC 4.96 (4.60-5.80) X10*6/uL Hgb 14.3 (14.0-18.0) g/dl Hct 42.4 (42.0-52.0) % MCV 85.5 (80.0-98.0) fL MCH 28.8 (27.0-33.0) pg MCHC 33.7 (31.0-36.0) g/dl RDW 12.0 (11.0-16.0) % Plt Count 153 L (160-400) X10*3/uL MPV 9.7 (9.4-12.4) fL Immature Gran % (Auto) 0.2 (0.0-0.4) % Neut % (Auto) 47.9 (45-73) % Lymph % (Auto) 40.0 (20-40) % [place] % (Auto) 8.3 (2-11) % Eos % (Auto) 2.9 (0-4) % Baso % (Auto) 0.7 (0-2) % Lymph # (Auto) 1.7 (1.2-4.9) X10*3/uL [place] # (Auto) 0.3 (0.1-1.2) X10*3/uL Eos # (Auto) 0.1 (0.0-0.4) X10*3/uL Baso # (Auto) 0.0 (0.0-0.2) X10*3/uL Abs Immat Gran (auto) 0.01 (0.00-0.03) X10*3/uL Absolute Neuts (auto) 2.0 (2.0-8.3) x10*3/uL Absolute Nucleated RBC 0.000 (0.0-0.012) X10*3/uL Nucleated RBC % (auto) 0.0 (0.0-0.2) /100WBC Sodium 140 (135-145) mmol/L Potassium 4.1 (3.3-5.1) mmol/L Chloride 105 (96-108) mmol/L Carbon Dioxide 31 H (22-29) mmol/L Anion Gap 8 L (12-20) BUN 7 L (9-16) mg/dL Creatinine 0.84 (0.5-1.4) mg/dL Estim Creat Clear Calc 130.9 Estimated GFR > 60 Random Glucose 96 (60-115) mg/dL Calcium 9.1 (8.4-10.2) mg/dL Magnesium 1.8 (1.6-2.6) mg/dL Total Bilirubin 0.8 (0.0-1.0) mg/dL AST 15 (5-37) U/L ALT 14 (0-40) U/L Alkaline Phosphatase 68 (39-117) U/L Total Protein 6.2 L (6.5-8.0) g/dL Albumin 4.3 (3.5-5.0) g/dL Lipase 15 (8-78) U/L <AMANDA Pope - Last Filed: 11/20/22 12:35> Lab Results 11/20/22 11/20/22 Range/Units 13:04 13:04 WBC 4.1 L (4.8-10.8) X10*3/uL RBC 4.96 (4.60-5.80) X10*6/uL Hgb 14.3 (14.0-18.0) g/dl Hct 42.4 (42.0-52.0) % MCV 85.5 (80.0-98.0) fL MCH 28.8 (27.0-33.0) pg MCHC 33.7 (31.0-36.0) g/dl RDW 12.0 (11.0-16.0) % Plt Count 153 L (160-400) X10*3/uL MPV 9.7 (9.4-12.4) fL Immature Gran % (Auto) 0.2 (0.0-0.4) % Neut % (Auto) 47.9 (45-73) % Lymph % (Auto) 40.0 (20-40) % [place] % (Auto) 8.3 (2-11) % Eos % (Auto) 2.9 (0-4) % Baso % (Auto) 0.7 (0-2) % Lymph # (Auto) 1.7 (1.2-4.9) X10*3/uL [place] # (Auto) 0.3 (0.1-1.2) X10*3/uL Eos # (Auto) 0.1 (0.0-0.4) X10*3/uL Baso # (Auto) 0.0 (0.0-0.2) X10*3/uL Abs Immat Gran (auto) 0.01 (0.00-0.03) X10*3/uL Absolute Neuts (auto) 2.0 (2.0-8.3) x10*3/uL Absolute Nucleated RBC 0.000 (0.0-0.012) X10*3/uL Nucleated RBC % (auto) 0.0 (0.0-0.2) /100WBC Sodium 140 (135-145) mmol/L Potassium 4.1 (3.3-5.1) mmol/L Chloride 105 (96-108) mmol/L Carbon Dioxide 31 H (22-29) mmol/L Anion Gap 8 L (12-20) BUN 7 L (9-16) mg/dL Creatinine 0.84 (0.5-1.4) mg/dL Estim Creat Clear Calc 130.9 Estimated GFR > 60 Random Glucose 96 (60-115) mg/dL Calcium 9.1 (8.4-10.2) mg/dL Magnesium 1.8 (1.6-2.6) mg/dL Total Bilirubin 0.8 (0.0-1.0) mg/dL AST 15 (5-37) U/L ALT 14 (0-40) U/L Alkaline Phosphatase 68 (39-117) U/L Total Protein 6.2 L (6.5-8.0) g/dL Albumin 4.3 (3.5-5.0) g/dL Lipase 15 (8-78) U/L <AMANDA Rodas - Last Filed: 11/20/22 13:56> External Record Review External record reviewed: Prior outpatient labs and Outside ED record <AMANDA Rodas Last Filed: 11/20/22 13:56> Prescription Management I considered prescription management with: Other ([employer]) <AMANDA Rodas Last Filed: 11/20/22 13:56> Critical Care Time Critical Care Time Critical Care Time: No <AMANDA Rodas Last Filed: 11/20/22 13:56> Discharge Plan Discharge Clinical Impression: Nausea & vomiting <AMANDA Pope - Last Filed: 11/20/22 12:35> Patient Disposition: Home, Self-Care <AMANDA Pope Last Filed: 11/20/22 12:35> Instructions: Acute Nausea and Vomiting (ED) <AMANDA Pope Last Filed: 11/20/22 12:35> Additional Instructions: You were seen today for evaluation of nausea and vomiting. Your exam and labs were unremarkable. Your zofran prescription was sent to the pharmacy you specified. It is important that you take the medication as instructed. Be sure to follow up with your primary care. Call 911 or return to the ER if you develop new or worsening symptoms. <AMANDA Pope Last Filed: 11/20/22 12:35> Prescriptions: New ondansetron 4 mg tablet,disintegrating 4 mg PO Q8H PRN (Reason: nausea and vomiting) Qty: 8 0RF Discontinued ondansetron 4 mg tablet,disintegrating 4 mg PO Q6H PRN (Reason: nausea and vomiting) Qty: 14 0RF No Action oxycodone-acetaminophen [Percocet] 5-325 mg tablet 1 tab PO Q6H PRN (Reason: pain) Qty: 20 0RF amoxicillin-pot clavulanate [Augmentin] 875-125 mg tablet 1 tab PO BID Qty: 20 0RF loperamide 2 mg capsule 2 mg PO QID PRN (Reason: loose stool) Qty: 10 0RF naproxen 500 mg tablet 500 mg PO BID PRN (Reason: pain) Qty: 30 0RF cyclobenzaprine 10 mg tablet 10 mg PO TID PRN (Reason: muscle spasm) Qty: 14 0RF cephalexin 500 mg capsule 500 mg PO QID 7 Days Qty: 28 0RF doxycycline hyclate 100 mg tablet 100 mg PO BID 7 Days Qty: 14 0RF ondansetron 4 mg tablet,disintegrating 4 mg PO Q8H PRN (Reason: nausea and vomiting) Qty: 7 0RF ondansetron 4 mg tablet,disintegrating 4 mg PO TID PRN (Reason: nausea and vomiting) 5 Days Qty: 10 0RF cephalexin 500 mg capsule 500 mg PO Q6H 7 Days Qty: 28 0RF doxycycline hyclate 100 mg tablet 100 mg PO BID 7 Days Qty: 14 0RF ondansetron 4 mg tablet,disintegrating 4 mg PO Q6H PRN (Reason: nausea and vomiting) 2 Days Qty: 8 0RF <AMANDA Pope - Last Filed: 11/20/22 12:35> Stand Alone Forms: Work/School Release <AMANDA Pope - Last Filed: 11/20/22 12:35>
[2022-11-20] MEDS: Ondansetron ODT 4 MG TAB.RAPDIS TRANSLINGU (12:39)
[2022-11-20 13:07] LABS: MANUAL DIFF FLAG NO
[2022-11-20 13:09] LABS: Basophils Percent Auto 0.7 % (0-2); Eosinophils Absolute Auto 0.1 X10*3/uL (0.0-0.4); Eosinophils Percent Auto 2.9 % (0-4); Hematocrit 42.4 % (42.0-52.0); Hemoglobin 14.3 g/dl (14.0-18.0); Imm Gran Abs Auto 0.01 X10*3/uL (0.00-0.03); Imm Gran Pct Auto 0.2 % (0.0-0.4); Lymphocytes Absolute Auto 1.7 X10*3/uL (1.2-4.9); Mean Corpuscular HGB Conc 33.7 g/dl (31.0-36.0); Mean Corpuscular Hemoglobin 28.8 pg (27.0-33.0); Mean Corpuscular Volume 85.5 fL (80.0-98.0); Mean Platelet Volume 9.7 fL (9.4-12.4); Monocytes Absolute Auto 0.3 X10*3/uL (0.1-1.2); Monocytes Percent Auto 8.3 % (2-11); Neutrophils Percent Auto 47.9 % (45-73); Platelet Count 153 X10*3/uL (160-400); Red Blood Count 4.96 X10*6/uL (4.60-5.80); White Blood Count 4.1 X10*3/uL (4.8-10.8)
[2022-11-20 13:37] LABS: Alanine Aminotransferase 14 U/L (0-40); Albumin Level 4.3 g/dL (3.5-5.0); Alkaline Phosphatase 68 U/L (39-117); Anion Gap 8 (12-20); Aspartate Amino Transferase 15 U/L (5-37); Bilirubin Total 0.8 mg/dL (0.0-1.0); Blood Urea Nitrogen 7 mg/dL (9-16); Calcium 9.1 mg/dL (8.4-10.2); Carbon Dioxide 31 mmol/L (22-29); Chloride 105 mmol/L (96-108); Creatinine Clr Calc Pharmacy 130.9; Estimated Glomerular Filt Rate > 60; Glucose Random 96 mg/dL (60-115); Lipase 15 U/L (8-78); Magnesium 1.8 mg/dL (1.6-2.6); Potassium 4.1 mmol/L (3.3-5.1); Sodium 140 mmol/L (135-145); Total Protein 6.2 g/dL (6.5-8.0)
== END 2022-11-20 14:02 | disposition home or self-care (01) ==
PROVIDERS: Physician Assistant; Emergency Provider Emergency Medicine
DX: R11.2 Nausea with vomiting, unspecified (principal); F12.90 Cannabis use, unspecified, uncomplicated; Z79.899 Other long term (current) drug therapy
CPT/HCPCS: 36415; 80053; 83690; 83735; 85025; 99282; 99283

== ENCOUNTER 2022-12-11 17:03 | Emergency (ER) | payer MEDICAID, SELFPAY | END 2022-12-11 20:42 | disposition left against medical advice (07) | PROVIDERS: Emergency Provider Emergency Medicine | DX: R10.9 Unspecified abdominal pain (principal); R11.10 Vomiting, unspecified ==

== ENCOUNTER 2022-12-11 20:50 | Emergency (ER) | payer MEDICAID, SELFPAY ==
[2022-12-11 21:10] VITALS: BP 146/71; PULSE 75; RESP 18; TEMP 37; BMI 25.1
[2022-12-11 21:36] LABS: MANUAL DIFF FLAG NO
[2022-12-11 21:45] LABS: Basophils Percent Auto 0.7 % (0-2); Eosinophils Absolute Auto 0.1 X10*3/uL (0.0-0.4); Eosinophils Percent Auto 2.1 % (0-4); Hematocrit 41.8 % (42.0-52.0); Hemoglobin 14.3 g/dl (14.0-18.0); Imm Gran Abs Auto 0.01 X10*3/uL (0.00-0.03); Imm Gran Pct Auto 0.2 % (0.0-0.4); Lymphocytes Absolute Auto 1.9 X10*3/uL (1.2-4.9); Lymphocytes Percent Auto 33.1 % (20-40); Mean Corpuscular HGB Conc 34.2 g/dl (31.0-36.0); Mean Corpuscular Hemoglobin 28.9 pg (27.0-33.0); Mean Corpuscular Volume 84.6 fL (80.0-98.0); Mean Platelet Volume 9.5 fL (9.4-12.4); Monocytes Absolute Auto 0.3 X10*3/uL (0.1-1.2); Monocytes Percent Auto 5.9 % (2-11); Neutrophils Absolute Auto 3.2 x10*3/uL (2.0-8.3); Platelet Count 172 X10*3/uL (160-400); Red Blood Count 4.94 X10*6/uL (4.60-5.80); White Blood Count 5.6 X10*3/uL (4.8-10.8)
[2022-12-11 21:58] LABS: Alanine Aminotransferase 30 U/L (0-40); Albumin Level 4.5 g/dL (3.5-5.0); Alkaline Phosphatase 66 U/L (39-117); Anion Gap 11 (12-20); Aspartate Amino Transferase 23 U/L (5-37); Bilirubin Direct 0.2 mg/dL (0.0-0.5); Bilirubin Total 0.5 mg/dL (0.0-1.0); Blood Urea Nitrogen 9 mg/dL (9-16); Calcium 9.2 mg/dL (8.4-10.2); Carbon Dioxide 29 mmol/L (22-29); Chloride 109 mmol/L (96-108); Creatinine Clr Calc Pharmacy 123.5; Estimated Glomerular Filt Rate > 60; Glucose Random 86 mg/dL (60-115); Lipase 12 U/L (8-78); Potassium 4.5 mmol/L (3.3-5.1); Sodium 144 mmol/L (135-145); Total Protein 6.6 g/dL (6.5-8.0)
--- NOTE | 2022-12-11 23:25 | ED_ITS ---
HPI - Nausea/Vomiting/Diarrhea General Chief complaint: Nausea/Vomiting/Diarrhea Stated complaint: vomiting Time Seen by Provider: 12/11/22 23:18 Source: patient Mode of arrival: ambulatory Limitations: no limitations History of Present Illness HPI Narrative: 27-year-old male came in for evaluation of nausea and vomiting x3 days. Nausea and vomiting without abdominal pain, no fever, no chills, patient's daughter was sick last week with similar symptoms, not clear if ate suspicious food causing the infection, declined any diarrhea, fever, chills. No abdominal pain. Patient came to the ED as a request from his boss at work, patient in the ED did not have vomiting, patient also declined inserting an IV for IV hydration just asking for prescription for Zofran. Related Data Previous Rx's Medication Instructions Recorded amoxicillin 875 mg-potassium 1 tab PO BID #20 tabs 07/01/21 clavulanate 125 mg tablet (Augmentin) oxycodone-acetaminophen 5 mg-325 1 tab PO Q6H PRN pain #20 tabs 07/01/21 mg tablet (Percocet) cyclobenzaprine 10 mg tablet 10 mg PO TID PRN muscle spasm #14 12/21/21 tabs naproxen 500 mg tablet 500 mg PO BID PRN pain #30 tabs 12/21/21 cephalexin 500 mg capsule 500 mg PO QID 7 days #28 caps 03/26/22 doxycycline hyclate 100 mg tablet 100 mg PO BID 7 days #14 tabs 03/26/22 ondansetron 4 mg disintegrating 4 mg PO Q8H PRN nausea and 04/05/22 tablet vomiting #7 tabs loperamide 2 mg capsule 2 mg PO QID PRN loose stool #10 06/06/22 caps ondansetron 4 mg disintegrating 4 mg PO TID PRN nausea and 06/18/22 tablet vomiting 5 days #10 tabs cephalexin 500 mg capsule 500 mg PO Q6H 7 days #28 caps 09/10/22 doxycycline hyclate 100 mg tablet 100 mg PO BID 7 days #14 tabs 09/10/22 ondansetron 4 mg disintegrating 4 mg PO Q6H PRN nausea and 11/19/22 tablet vomiting 2 days #8 tabs ondansetron 4 mg disintegrating 4 mg PO Q8H PRN nausea and 11/20/22 tablet vomiting #8 tabs ondansetron 4 mg disintegrating 4 mg PO Q8-12H PRN nausea and 12/11/22 tablet vomiting #10 tabs Allergies Allergy/AdvReac Type Severity Reaction Status Date / Time No Known Allergies Allergy Verified 12/11/22 21:13 [No Known Allergies*] Review of Systems Review of Systems: All other systems are reviewed and are negative Constitutional: Reports as per HPI and Reports no additional constitutional complaints Eyes: Reports as per HPI and Reports no additional eye complaints Reports system reviewed and no additional complaints, except as documented Cardiovascular: Reports as per HPI and Reports no additional cardiovascular complaints Respiratory: Reports as per HPI and Reports no additional respiratory complaints Gastrointestinal: Reports as per HPI and Reports no additional gastrointestinal complaints Genitourinary: Reports no additional female genitourinary complaints Musculoskeletal: Reports no additional musculoskeletal complaints Skin/Breast: Reports system reviewed and no additional complaints, except as docu Psychiatric: Reports no additional psychiatric complaints Endocrine: Reports no additional endocrine complaints Hematologic/Lymphatic: Reports no additional hematologic/lymphatic complaints Allergic/Immunologic: Reports no additional allergic/immunologic complaints Reports system reviewed and no additional complaints, except as documented and Reports Abnormal speech present [facility] Past Medical History Medical History Bipolar 1 disorder Depression Patient denies significant medical history Seizure Surgical History No significant past surgical history Social History Social History Alcohol intake: current Alcohol intake frequency: holidays/special occasions only Substance Use Type: Marijuana Advance Directives: No Advance Directives Information Provided: No Physical Exam Vital Signs: Vital Signs: Last Vital Signs Temp 98.6 F 12/11/22 21:10 Pulse 75 12/11/22 21:10 Resp 18 12/11/22 21:10 BP 146/71 H 12/11/22 21:10 O2 Del Method Room Air 12/11/22 21:10 BMI result Body Mass Index 25.1 Vital signs have been reviewed as appeared to be correct. Blood pressure normal. Heart rate normal. Respiration rate normal. Temperature normal. Oxygen saturation normal. Appearance: Alert. Oriented X3. No acute distress. Head: Normal external exam. Normocephalic. Atraumatic. No Goodrich signs noted. No raccoon eyes noted Eyes: PERRLA. EOMI. Conjunctiva and sclera normal. Eyelids normal. ENT: TM's Normal. Pharynx normal. Uvula midline. Moist mucous membranes. No trismus noted. No drooling noted. No muffled voice noted. Neck: Normal inspection. Neck supple. FROM. No adenopathy. Thyroid Normal. No meningeal signs. No neck mass noted. CVS: Normal heart rate and rhythm. Heart sound normal. No murmurs noted. Pulses normal throughout. Respiratory: No respiratory distress. Painless inspiration. Breath sounds normal. No wheezes/rales/rhonchi noted. Chest nontender. No accessory muscle usage noted or decreased air movement noted. Abdomen: Soft and nontender. Bowel sounds normal in all 4 quadrants. No distention noted. No organomegaly noted. No visible injury noted. Back: No CVA tenderness. Full range of motion noted. Skin: Skin warm and dry. Normal skin color. Normal skin turgor. No rashes/lesions/lacerations noted. Extremities: No lower extremity edema. Extremities exhibit normal range of motion. Extremities nontender. Neuro: Oriented X 3. Cranial nerve exam: II-XII are grossly intact No motor deficit. No sensory deficit. Reflexes normal. Course Course Course Narrative: Three days of nausea and vomiting with no diarrhea or abdominal pain, unremarkable labs for electrolyte abnormalities with no leukocytosis patient is requesting Zofran prescription and declining inserting IV for hydration. Medical Decision Making Differential Diagnosis Differential Diagnoses: The differential diagnosis associated with the presentation includes (Food poisoning, gastroenteritis, dehydration, electrolyte disturbance, severe anemia.) Lab Data MDM Lab Attestation statement: I reviewed the patient's lab results. 12/11/22 21:33 12/11/22 21:33 Labs: Lab Results 12/11/22 12/11/22 Range/Units 21:33 21:33 WBC 5.6 (4.8-10.8) X10*3/uL RBC 4.94 (4.60-5.80) X10*6/uL Hgb 14.3 (14.0-18.0) g/dl Hct 41.8 L (42.0-52.0) % MCV 84.6 (80.0-98.0) fL MCH 28.9 (27.0-33.0) pg MCHC 34.2 (31.0-36.0) g/dl RDW 12.0 (11.0-16.0) % Plt Count 172 (160-400) X10*3/uL MPV 9.5 (9.4-12.4) fL Immature Gran % (Auto) 0.2 (0.0-0.4) % Neut % (Auto) 58.0 (45-73) % Lymph % (Auto) 33.1 (20-40) % [place] % (Auto) 5.9 (2-11) % Eos % (Auto) 2.1 (0-4) % Baso % (Auto) 0.7 (0-2) % Lymph # (Auto) 1.9 (1.2-4.9) X10*3/uL [place] # (Auto) 0.3 (0.1-1.2) X10*3/uL Eos # (Auto) 0.1 (0.0-0.4) X10*3/uL Baso # (Auto) 0.0 (0.0-0.2) X10*3/uL Abs Immat Gran (auto) 0.01 (0.00-0.03) X10*3/uL Absolute Neuts (auto) 3.2 (2.0-8.3) x10*3/uL Absolute Nucleated RBC 0.000 (0.0-0.012) X10*3/uL Nucleated RBC % (auto) 0.0 (0.0-0.2) /100WBC Sodium 144 (135-145) mmol/L Potassium 4.5 (3.3-5.1) mmol/L Chloride 109 H (96-108) mmol/L Carbon Dioxide 29 (22-29) mmol/L Anion Gap 11 L (12-20) BUN 9 (9-16) mg/dL Creatinine 0.89 (0.5-1.4) mg/dL Estim Creat Clear Calc 123.5 Estimated GFR > 60 Random Glucose 86 (60-115) mg/dL Calcium 9.2 (8.4-10.2) mg/dL Total Bilirubin 0.5 (0.0-1.0) mg/dL Direct Bilirubin 0.2 (0.0-0.5) mg/dL AST 23 (5-37) U/L ALT 30 (0-40) U/L Alkaline Phosphatase 66 (39-117) U/L Total Protein 6.6 (6.5-8.0) g/dL Albumin 4.5 (3.5-5.0) g/dL Lipase 12 (8-78) U/L Discharge Plan Discharge Clinical Impression: Vomiting Patient Disposition: Home, Self-Care Instructions: Acute Nausea and Vomiting (ED) Prescriptions: New ondansetron 4 mg tablet,disintegrating 4 mg PO Q8-12H PRN (Reason: nausea and vomiting) Qty: 10 0RF No Action oxycodone-acetaminophen [Percocet] 5-325 mg tablet 1 tab PO Q6H PRN (Reason: pain) Qty: 20 0RF amoxicillin-pot clavulanate [Augmentin] 875-125 mg tablet 1 tab PO BID Qty: 20 0RF loperamide 2 mg capsule 2 mg PO QID PRN (Reason: loose stool) Qty: 10 0RF naproxen 500 mg tablet 500 mg PO BID PRN (Reason: pain) Qty: 30 0RF cyclobenzaprine 10 mg tablet 10 mg PO TID PRN (Reason: muscle spasm) Qty: 14 0RF cephalexin 500 mg capsule 500 mg PO QID 7 Days Qty: 28 0RF doxycycline hyclate 100 mg tablet 100 mg PO BID 7 Days Qty: 14 0RF ondansetron 4 mg tablet,disintegrating 4 mg PO Q8H PRN (Reason: nausea and vomiting) Qty: 7 0RF ondansetron 4 mg tablet,disintegrating 4 mg PO TID PRN (Reason: nausea and vomiting) 5 Days Qty: 10 0RF cephalexin 500 mg capsule 500 mg PO Q6H 7 Days Qty: 28 0RF doxycycline hyclate 100 mg tablet 100 mg PO BID 7 Days Qty: 14 0RF ondansetron 4 mg tablet,disintegrating 4 mg PO Q6H PRN (Reason: nausea and vomiting) 2 Days Qty: 8 0RF ondansetron 4 mg tablet,disintegrating 4 mg PO Q8H PRN (Reason: nausea and vomiting) Qty: 8 0RF Stand Alone Forms: Work/School Release
[2022-12-11] MEDS: Ondansetron ODT 4 MG TAB.RAPDIS TRANSLINGU (23:42)
== END 2022-12-11 23:45 | disposition home or self-care (01) ==
PROVIDERS: Emergency Provider Emergency Medicine
DX: R11.2 Nausea with vomiting, unspecified (principal)
CPT/HCPCS: 36415; 80048; 80076; 83690; 85025; 99283; 99284

== ENCOUNTER 2022-12-27 19:34 | Emergency (ER) | payer MEDICAID, SELFPAY ==
[2022-12-27 19:57] VITALS: BP 130/61; PULSE 85; RESP 20; TEMP 36.8; O2SAT 98; BMI 23.6
--- NOTE | 2022-12-27 19:57 | ED.NAVMDI ---
HPI - Nausea/Vomiting/Diarrhea General Chief complaint: Nausea/Vomiting/Diarrhea Stated complaint: diarrhea vomiting Time Seen by Provider: 12/27/22 23:41 Source: patient Mode of arrival: ambulatory Limitations: no limitations History of Present Illness HPI Narrative: 27-year-old male history of bipolar, seizure disorder presenting for evaluation of nausea, vomiting ( earlier today, now impovin), diarrhea for the past day,. Patient reports symptoms started suddenly. Reports bilious vomiting. Brown liquid diarrhea without blood. Patient reports his daughter is sick w/ similar sx. He tells me other than the symptoms he is feeling okay. Tells me when he eats and drinks he just vomits or has diarrhea. Patient denies fevers, chills, abdominal pain, flank pain, urinary changes, melena, hematochezia, hematemesis, headache, vision changes, dizziness, chest pain and shortness of breath. Related Data Previous Rx's Medication Instructions Recorded amoxicillin 875 mg-potassium 1 tab PO BID #20 tabs 07/01/21 clavulanate 125 mg tablet (Augmentin) oxycodone-acetaminophen 5 mg-325 1 tab PO Q6H PRN pain #20 tabs 07/01/21 mg tablet (Percocet) cyclobenzaprine 10 mg tablet 10 mg PO TID PRN muscle spasm #14 12/21/21 tabs naproxen 500 mg tablet 500 mg PO BID PRN pain #30 tabs 12/21/21 cephalexin 500 mg capsule 500 mg PO QID 7 days #28 caps 03/26/22 doxycycline hyclate 100 mg tablet 100 mg PO BID 7 days #14 tabs 03/26/22 ondansetron 4 mg disintegrating 4 mg PO Q8H PRN nausea and 04/05/22 tablet vomiting #7 tabs loperamide 2 mg capsule 2 mg PO QID PRN loose stool #10 06/06/22 caps ondansetron 4 mg disintegrating 4 mg PO TID PRN nausea and 06/18/22 tablet vomiting 5 days #10 tabs cephalexin 500 mg capsule 500 mg PO Q6H 7 days #28 caps 09/10/22 doxycycline hyclate 100 mg tablet 100 mg PO BID 7 days #14 tabs 09/10/22 ondansetron 4 mg disintegrating 4 mg PO Q6H PRN nausea and 11/19/22 tablet vomiting 2 days #8 tabs ondansetron 4 mg disintegrating 4 mg PO Q8H PRN nausea and 11/20/22 tablet vomiting #8 tabs ondansetron 4 mg disintegrating 4 mg PO Q8-12H PRN nausea and 12/11/22 tablet vomiting #10 tabs loperamide 2 mg capsule 2 mg PO Q6H PRN loose stool #20 12/27/22 caps ondansetron 4 mg disintegrating 4 mg PO Q6H PRN nausea and 12/27/22 tablet vomiting #14 tabs Allergies Allergy/AdvReac Type Severity Reaction Status Date / Time No Known Allergies Allergy Verified 12/11/22 21:13 [No Known Allergies*] Review of Systems Review of Systems: Constitutional : No Weight loss, No Fever, No Chills, No Fatigue, No Malaise ENT/Mouth : No sore throat, No Rhinorrhea Eyes: No Eye Pain, No Swelling, No Redness Cardiovascular : No Chest Pain, No SOB, No Dyspnea on Exertion, No Orthopnea, No Edema, No Palpitations Respiratory : No Cough, No Sputum, No Wheezing Gastrointestinal : + Nausea, + Vomiting, + Diarrhea, No Constipation, No abdominal Pain, No Hematochezia, No Melena Genitourinary : No Dysuria, No Urinary Frequency, No Hematuria, Musculoskeletal : No joint pain, No Myalgias, No Joint Swelling Skin : No Skin Lesions, No rash Neuro : No Weakness, No Numbness, No Dizziness, No Headache Psych : No Anxiety/Panic, No Depression All other systems reviewed and are negative Yes all other systems are reviewed and are negative [facility] Past Medical History Attestation statement: The following information was validated with the patient. Source: old records reviewed and nursing notes reviewed Medical History Bipolar 1 disorder Depression Patient denies significant medical history Seizure Surgical History No significant past surgical history Social History Social History Alcohol intake: current Alcohol intake frequency: holidays/special occasions only Substance Use Type: Marijuana Advance Directives: No Advance Directives Information Provided: No Physical Exam Vital Signs: Vital Signs: Last Vital Signs Temp 98.2 F 12/27/22 19:57 Pulse 85 12/27/22 19:57 Resp 20 12/27/22 19:57 BP 130/61 12/27/22 19:57 Pulse Ox 98 12/27/22 19:57 O2 Del Method Room Air 12/27/22 19:57 BMI result Body Mass Index 23.6 vss Appearance: Alert.? Oriented X3.? No acute distress.? Head: Normocephalic, atraumatic, no step-offs or deformities Eyes: Pupils equal, round and reactive to light.? CVS: Normal heart rate and rhythm.? Pulses normal.? Respiratory: No respiratory distress.? Breath sounds normal.? Abdomen: Soft and nontender.? Negative Gentile's negative Rovsing, negative McBurney's Skin: Skin warm and dry.? Normal skin color.? Normal skin turgor.? Extremities: No lower extremity edema.? No calf ttp. 5/5 strength to bilateral upper and lower extremities Neuro: Oriented X 3.? No motor deficit.? No sensory deficit. CN 2-12 intact Course Course Course Narrative: This is a rapid medical exam. Deferred additional HPI, ROS, PE to primary provider. 27 yo male with no known medical history here with complaints of diarrhea, vomiting x 1 day. No abdominal pain or fever Will check labs, UA VSS Medical Decision Making Medical Decision Making [facility] Narrative: 2344 27-year-old male presents with nausea, vomiting (improved since earlier), diarrhea the past day. Daughter at home sick with similar symptoms Physical exam benign Likely viral in origin. No abdominal tenderness unlikely acute abdomen, cholecystitis, appendicitis, diverticulitis, colitis, obstruction, pancreatitis. I do not suspect C diff on this patient. Plan labs, urine, viral testing Differential Diagnosis Differential Diagnoses: The differential diagnosis associated with the presentation includes Likely viral in origin. No abdominal tenderness unlikely acute abdomen, cholecystitis, appendicitis, diverticulitis, colitis, obstruction, pancreatitis. I do not suspect C diff on this patient. Admission/Observation Consideration of admission/observation: Escalation of care including admission/observation considered Unlikely Lab Data [facility] Lab Attestation statement: I reviewed the patient's lab results. 12/27/22 20:44 12/27/22 20:44 Labs: Lab Results 12/27/22 12/27/2223 Range/Units 20:44 20:44 20:48 WBC 4.8 (4.8-10.8) X10*3/uL RBC 4.78 (4.60-5.80) X10*6/uL Hgb 13.9 L (14.0-18.0) g/dl Hct 41.2 L (42.0-52.0) % MCV 86.2 (80.0-98.0) fL MCH 29.1 (27.0-33.0) pg MCHC 33.7 (31.0-36.0) g/dl RDW 12.7 (11.0-16.0) % Plt Count 160 (160-400) X10*3/uL MPV 9.9 (9.4-12.4) fL Immature Gran % (Auto) 0.2 (0.0-0.4) % Neut % (Auto) 49.2 (45-73) % Lymph % (Auto) 40.9 H (20-40) % Carter % (Auto) 8.1 (2-11) % Eos % (Auto) 1.2 (0-4) % Baso % (Auto) 0.4 (0-2) % Lymph # (Auto) 2.0 (1.2-4.9) X10*3/uL Carter # (Auto) 0.4 (0.1-1.2) X10*3/uL Eos # (Auto) 0.1 (0.0-0.4) X10*3/uL Baso # (Auto) 0.0 (0.0-0.2) X10*3/uL Abs Immat Gran (auto) 0.01 (0.00-0.03) X10*3/uL Absolute Neuts (auto) 2.4 (2.0-8.3) x10*3/uL Absolute Nucleated RBC 0.000 (0.0-0.012) X10*3/uL Nucleated RBC % (auto) 0.0 (0.0-0.2) /100WBC Sodium 141 (135-145) mmol/L Potassium 4.2 (3.3-5.1) mmol/L Chloride 106 (96-108) mmol/L Carbon Dioxide 29 (22-29) mmol/L Anion Gap 10 L (12-20) BUN 8 L (9-16) mg/dL Creatinine 0.79 (0.5-1.4) mg/dL Estim Creat Clear Calc 139.2 Estimated GFR > 60 Random Glucose 103 (60-115) mg/dL Calcium 9.3 (8.4-10.2) mg/dL Total Bilirubin 0.5 (0.0-1.0) mg/dL Direct Bilirubin 0.2 (0.0-0.5) mg/dL AST 21 (5-37) U/L ALT 20 (0-40) U/L Alkaline Phosphatase 59 (39-117) U/L Total Protein 6.4 L (6.5-8.0) g/dL Albumin 4.3 (3.5-5.0) g/dL Urine Color Yellow Urine Appearance Clear Urine pH 6.0 (5.0-9.0) Ur Specific Elbe 1.025 (1.005-1.025) Urine Protein Negative (Neg-Trace) mg/dL Urine Glucose (UA) Negative (Negative) mg/dL Urine Ketones Negative (Negative) mg/dL Urine Blood Negative (Negative) Urine Nitrite Negative (Negative) Ur Leukocyte Esterase Negative (Negative) Core Measures AMI core measures followed: Yes Measure exclusions: not indicated Critical Care Time Critical Care Time Critical Care Time: No Discharge Plan Discharge Clinical Impression: Diarrhea, Nausea & vomiting, Viral illness Patient Disposition: Home, Self-Care Instructions: Acute Nausea and Vomiting (ED), Acute Diarrhea (ED), Viral Syndrome (ED) Additional Instructions: Take your medications as prescribed. If you were prescribed antibiotics today, it is important that you take your medication to their entirety, do not skip any doses, do not finish them early. Follow-up with your primary care provider this week. Return to the emergency department with new or worsening symptoms. Such as fevers, chills, chest pain, shortness of breath, nausea, vomiting, dizziness, headache, vision changes, lethargy In case of emergency call 911 Drink plenty of fluids. Prescriptions: New loperamide 2 mg capsule 2 mg PO Q6H PRN (Reason: loose stool) Qty: 20 0RF ondansetron 4 mg tablet,disintegrating 4 mg PO Q6H PRN (Reason: nausea and vomiting) Qty: 14 0RF No Action oxycodone-acetaminophen [Percocet] 5-325 mg tablet 1 tab PO Q6H PRN (Reason: pain) Qty: 20 0RF amoxicillin-pot clavulanate [Augmentin] 875-125 mg tablet 1 tab PO BID Qty: 20 0RF loperamide 2 mg capsule 2 mg PO QID PRN (Reason: loose stool) Qty: 10 0RF naproxen 500 mg tablet 500 mg PO BID PRN (Reason: pain) Qty: 30 0RF cyclobenzaprine 10 mg tablet 10 mg PO TID PRN (Reason: muscle spasm) Qty: 14 0RF cephalexin 500 mg capsule 500 mg PO QID 7 Days Qty: 28 0RF doxycycline hyclate 100 mg tablet 100 mg PO BID 7 Days Qty: 14 0RF ondansetron 4 mg tablet,disintegrating 4 mg PO Q8H PRN (Reason: nausea and vomiting) Qty: 7 0RF ondansetron 4 mg tablet,disintegrating 4 mg PO TID PRN (Reason: nausea and vomiting) 5 Days Qty: 10 0RF cephalexin 500 mg capsule 500 mg PO Q6H 7 Days Qty: 28 0RF doxycycline hyclate 100 mg tablet 100 mg PO BID 7 Days Qty: 14 0RF ondansetron 4 mg tablet,disintegrating 4 mg PO Q6H PRN (Reason: nausea and vomiting) 2 Days Qty: 8 0RF ondansetron 4 mg tablet,disintegrating 4 mg PO Q8H PRN (Reason: nausea and vomiting) Qty: 8 0RF ondansetron 4 mg tablet,disintegrating 4 mg PO Q8-12H PRN (Reason: nausea and vomiting) Qty: 10 0RF Referrals: Physician,None [Primary Care Provider] - 2 days Stand Alone Forms: Work/School Release
[2022-12-27 20:53] LABS: MANUAL DIFF FLAG NO
[2022-12-27 20:54] LABS: Basophils Percent Auto 0.4 % (0-2); Eosinophils Absolute Auto 0.1 X10*3/uL (0.0-0.4); Eosinophils Percent Auto 1.2 % (0-4); Hematocrit 41.2 % (42.0-52.0); Hemoglobin 13.9 g/dl (14.0-18.0); Imm Gran Abs Auto 0.01 X10*3/uL (0.00-0.03); Imm Gran Pct Auto 0.2 % (0.0-0.4); Lymphocytes Percent Auto 40.9 % (20-40); Mean Corpuscular HGB Conc 33.7 g/dl (31.0-36.0); Mean Corpuscular Hemoglobin 29.1 pg (27.0-33.0); Mean Corpuscular Volume 86.2 fL (80.0-98.0); Mean Platelet Volume 9.9 fL (9.4-12.4); Monocytes Absolute Auto 0.4 X10*3/uL (0.1-1.2); Monocytes Percent Auto 8.1 % (2-11); Neutrophils Absolute Auto 2.4 x10*3/uL (2.0-8.3); Neutrophils Percent Auto 49.2 % (45-73); Platelet Count 160 X10*3/uL (160-400); Red Blood Count 4.78 X10*6/uL (4.60-5.80); Red Cell Distribution Width 12.7 % (11.0-16.0); White Blood Count 4.8 X10*3/uL (4.8-10.8)
[2022-12-27 20:56] LABS: Appearance Urine Clear; Color Urine Yellow; Glucose Urine UA Negative (Negative); Leukocyte Esterase Urine Negative (Negative); Nitrite Urine Negative (Negative); Specific Gravity - Urine 1.025 (1.005-1.025); Urine Blood Negative (Negative); Urine Ketones Negative (Negative); Urine Protein Negative (Neg-Trace)
[2022-12-27 21:11] LABS: Alanine Aminotransferase 20 U/L (0-40); Albumin Level 4.3 g/dL (3.5-5.0); Alkaline Phosphatase 59 U/L (39-117); Anion Gap 10 (12-20); Aspartate Amino Transferase 21 U/L (5-37); Bilirubin Direct 0.2 mg/dL (0.0-0.5); Bilirubin Total 0.5 mg/dL (0.0-1.0); Blood Urea Nitrogen 8 mg/dL (9-16); Calcium 9.3 mg/dL (8.4-10.2); Carbon Dioxide 29 mmol/L (22-29); Chloride 106 mmol/L (96-108); Creatinine Clr Calc Pharmacy 139.2; Estimated Glomerular Filt Rate > 60; Glucose Random 103 mg/dL (60-115); Potassium 4.2 mmol/L (3.3-5.1); Sodium 141 mmol/L (135-145); Total Protein 6.4 g/dL (6.5-8.0)
[2022-12-28] MEDS: Loperamide HCl 2 MG CAPSULE PO (00:05)
[2022-12-28 00:23] LABS: COVID-19 Test Negative (Negative); IDNOW Serial# 08D9AD1C; IDNOW Serial# BCCEAD1C; Influenza A Negative (Negative); Influenza B2 Negative (Negative)
== END 2022-12-28 00:06 | disposition home or self-care (01) ==
PROVIDERS: Nurse Practitioner Family; Physician Assistant; Emergency Provider Emergency Medicine
DX: B34.9 Viral infection, unspecified (principal); R11.2 Nausea with vomiting, unspecified; R19.7 Diarrhea, unspecified; Z20.822 Contact with and (suspected) exposure to COVID-19; Z20.828 Contact with and (suspected) exposure to other viral communicable diseases; Z79.899 Other long term (current) drug therapy
CPT/HCPCS: 36415; 80048; 80076; 81003; 85025; 87502; 87635; 99282; 99283

== ENCOUNTER 2023-02-09 11:38 | Emergency (ER) | payer MEDICAID, SELFPAY ==
--- NOTE | 2023-02-09 11:45 | ED.ABDPAIN ---
HPI - Abdominal Pain General Chief Complaint: Abdominal Pain Stated Complaint: abd pain vomting stomach blotting Time Seen by Provider: 02/09/23 12:41 Source: patient and RN notes reviewed Mode of arrival: ambulatory Limitations: no limitations History of Present Illness HPI narrative: This is a 27-year-old male, with no known past medical history, presents emergency department with complaints of abdominal pain, nausea and vomiting x 2 days. Patient reports that his abdominal pain is diffuse. Patient states that his abdominal pain is constant but does not radiate. He was able to eat without difficulty today. He also admits to having constipation, last moved his bowels 2 days ago but states that it was a small amount and hard. Denies any fevers or chills. Denies sore throat, ear pain, chest pain, shortness of breath, a cough, diarrhea. He denies abdominal surgeries in the past. No urinary symptoms. He denies alcohol or drug use. No other complaints or concerns at this time. MD elicited complaint: abdominal pain Location: epigastric and periumbilical Quality: cramping Radiation: none Migration to: no migration Exacerbating factors: nothing Relieving factors: nothing Associated symptoms: denies other symptoms Related Data Previous Rx's Medication Instructions Recorded amoxicillin 875 mg-potassium 1 tab PO BID #20 tabs 07/01/21 clavulanate 125 mg tablet (Augmentin) oxycodone-acetaminophen 5 mg-325 1 tab PO Q6H PRN pain #20 tabs 07/01/21 mg tablet (Percocet) cyclobenzaprine 10 mg tablet 10 mg PO TID PRN muscle spasm #14 12/21/21 tabs naproxen 500 mg tablet 500 mg PO BID PRN pain #30 tabs 12/21/21 cephalexin 500 mg capsule 500 mg PO QID 7 days #28 caps 03/26/22 doxycycline hyclate 100 mg tablet 100 mg PO BID 7 days #14 tabs 03/26/22 ondansetron 4 mg disintegrating 4 mg PO Q8H PRN nausea and 04/05/22 tablet vomiting #7 tabs loperamide 2 mg capsule 2 mg PO QID PRN loose stool #10 06/06/22 caps ondansetron 4 mg disintegrating 4 mg PO TID PRN nausea and 06/18/22 tablet vomiting 5 days #10 tabs cephalexin 500 mg capsule 500 mg PO Q6H 7 days #28 caps 09/10/22 doxycycline hyclate 100 mg tablet 100 mg PO BID 7 days #14 tabs 09/10/22 ondansetron 4 mg disintegrating 4 mg PO Q6H PRN nausea and 11/19/22 tablet vomiting 2 days #8 tabs ondansetron 4 mg disintegrating 4 mg PO Q8H PRN nausea and 11/20/22 tablet vomiting #8 tabs ondansetron 4 mg disintegrating 4 mg PO Q8-12H PRN nausea and 12/11/22 tablet vomiting #10 tabs loperamide 2 mg capsule 2 mg PO Q6H PRN loose stool #20 12/27/22 caps ondansetron 4 mg disintegrating 4 mg PO Q6H PRN nausea and 12/27/22 tablet vomiting #14 tabs docusate calcium 240 mg capsule 240 mg PO DAILY #30 caps 02/09/23 ondansetron HCl 4 mg tablet 4 mg PO Q6-8H PRN nausea and 02/09/23 vomiting #14 tabs polyethylene glycol 3350 17 gram 17 g PO DAILY #30 ea 02/09/23 oral powder packet (Miralax) Allergies Allergy/AdvReac Type Severity Reaction Status Date / Time No Known Allergies Allergy Verified 12/11/22 21:13 [No Known Allergies*] Review of Systems Review of Systems Constitutional: No Weight loss, No Fever, No Chills ENT/Mouth: No Ear Pain, No Nasal Congestion, No Sinus Pain, No Hoarseness, No sore throat, No Rhinorrhea, No Swallowing Difficulty Cardiovascular: No Chest Pain, No SOB Respiratory: No Cough, No Sputum, No Wheezing Gastrointestinal: + Nausea, + Vomiting, No Diarrhea, No Constipation, + Abdominal pain Genitourinary: No Dysuria, No Urinary Frequency, No Hematuria, No Urinary Incontinence/retention, No Urgency, No Flank Pain Musculoskeletal: No joint pain, No Myalgias, No Joint Swelling Skin: No Skin Lesions, No rash Neuro: No Weakness, No Numbness, No Paresthesias Yes all other systems are reviewed and are negative Constitutional: Reports as per [facility] Past Medical History Medical History Bipolar 1 disorder Depression Patient denies significant medical history Seizure Surgical History No significant past surgical history Social History Social History Alcohol intake: current Alcohol intake frequency: holidays/special occasions only Substance Use Type: Marijuana Advance Directives: No Advance Directives Information Provided: Yes Physical Exam ED Vital Signs: Vital Signs - 24 hr 02/09/23 11:46 02/09/23 14:18 Temperature 97.2 F 98.7 F Pulse Rate 66 57 Respiratory Rate 20 14 Blood Pressure 115/64 102/54 L Pulse Oximetry 96 97 Oxygen Delivery Method Room Air Room Air BMI result Body Mass Index 24.1 Const General: cooperative, comfortable and no acute distress Orientation/consciousness: patient oriented x3 Limitations: no limitations HENMT Head: Yes normal to inspection, Yes normocephalic and Yes atraumatic Ears: hearing grossly normal bilaterally General nose exam: Normal external nose present Face and sinus: Yes normal facial exam Mouth: Normal oral and palatal mucosa present, oropharynx normal and moist mucous membranes Throat: Yes posterior oropharynx normal Eyes General: appearance normal, both eyes and all related structures Eyelids: Yes eyelids normal Conjunctivae: conjunctivae normal Sclerae: sclerae normal Pupils: Equal, round and reactive pupils present EOM: EOMs intact bilaterally Neck Neck: Yes normal visual inspection, Yes full ROM and Yes no lymphadenopathy Lymphatic: no lymphadenopathy noted Chest Chest palpation & inspection: normal inspection of the chest Resp Effort & Inspection: normal respiratory effort and able to speak in complete sentences Auscultation: clear to auscultation bilaterally, no crackles, no rales, no rhonchi and no wheezes Cardio Rate: regular rate Rhythm: regular rhythm Heart sounds: S1 normal heart sound present and S2 normal heart sound present GI Other: Abdomen is soft, with mild epigastric tenderness. Negative Gentile sign. Hypoactive bowel sounds present. No rebound or guarding. Inspection: Yes normal to inspection Skin General skin exam: no rashes or lesions noted Trauma: no lacerations or abrasions Wounds: no wounds Neuro General: patient oriented x3 and moves all extremities Cranial nerves: Yes Equal, round and reactive pupils present Extrem General: Yes normal to inspection Right upper extremity: normal to inspection Left upper extremity: normal to inspection Right lower extremity: normal to inspection Left lower extremity: normal to inspection Course Course Course Narrative: RME: 27-year-old male history of bipolar, seizure disorder presenting to ED c/o nausea, vomiting, abdominal bloating/periumbilical pain x2 days. denies etoh, illicit drugs, urinary sx Patient has been seen and tx in our ED multiple times for similar sx, most recently 12/27 Labs, UA, CHIRINOS ordered in triage Full HPI, ROS and PE to be performed by primary ED provider. Reevaluation(s) Reevaluation #1: Labs obtained, no leukocytosis, H&H within normal limits, chemistry unremarkable, UA with a high specific gravity and protein, no evidence of infection, urine drug screen positive for opiates, fentanyl, and marijuana. Awaiting KUB x-ray and GI cocktail. Time: 14:13 Reevaluation #2: KUB revealing moderate constipation, patient is feeling much better after receiving GI cocktail. Discussed with patient that his symptoms are likely due to constipation, will give MiraLax and docusate, as well as Zofran as needed for nausea. Discussed return precautions with patient. Patient is eager for discharge, vital signs stable, patient appropriate for discharge. Encouraged to stop using this in induced constipation and also be very harmful to his health. Offered recovery services, patient respectfully declines. Patient stable for discharge. Time: 15:25 Medical Decision Making Medical Decision Making MDM Narrative: 27-year-old male presenting to the emergency department for evaluation of nausea, vomiting, and epigastric pain. On arrival, vital signs within normal limits. Patient admits that he has not moved his bowels well in the last several days. On examination, patient has mild tenderness in the epigastrium. Given recent history of constipation, will obtain abdominal KUB. GI cocktail also ordered. Plan: Labs, KUB, UA Differential Diagnosis Differential Diagnoses: The differential diagnosis associated with the presentation includes Gastritis, gastroenteritis, small-bowel obstruction, constipation, cholecystitis, cholangitis, pyelonephritis, UTI Lab Data MDM Lab Attestation statement: I reviewed the patient's lab results. See above 02/09/23 12:00 02/09/23 12:00 Labs: Lab Results 02/09/23 02/09/23 02/09/23 Range/Units 12:00 12:00 12:00 WBC 5.8 (4.8-10.8) X10*3/uL RBC 5.17 (4.60-5.80) X10*6/uL Hgb 14.9 (14.0-18.0) g/dl Hct 43.5 (42.0-52.0) % MCV 84.1 (80.0-98.0) fL MCH 28.8 (27.0-33.0) pg MCHC 34.3 (31.0-36.0) g/dl RDW 12.1 (11.0-16.0) % Plt Count 194 (160-400) X10*3/uL MPV 9.9 (9.4-12.4) fL Immature Gran % (Auto) 0.2 (0.0-0.4) % Neut % (Auto) 77.6 H (45-73) % Lymph % (Auto) 17.0 L (20-40) % [place] % (Auto) 3.8 (2-11) % Eos % (Auto) 0.9 (0-4) % Baso % (Auto) 0.5 (0-2) % Lymph # (Auto) 1.0 L (1.2-4.9) X10*3/uL [place] # (Auto) 0.2 (0.1-1.2) X10*3/uL Eos # (Auto) 0.1 (0.0-0.4) X10*3/uL Baso # (Auto) 0.0 (0.0-0.2) X10*3/uL Abs Immat Gran (auto) 0.01 (0.00-0.03) X10*3/uL Absolute Neuts (auto) 4.5 (2.0-8.3) x10*3/uL Absolute Nucleated RBC 0.000 (0.0-0.012) X10*3/uL Nucleated RBC % (auto) 0.0 (0.0-0.2) /100WBC Sodium 138 (135-145) mmol/L Potassium 4.1 (3.3-5.1) mmol/L Chloride 103 (96-108) mmol/L Carbon Dioxide 26 (22-29) mmol/L Anion Gap 13 (12-20) BUN 7 L (9-16) mg/dL Creatinine 0.77 (0.5-1.4) mg/dL Estim Creat Clear Calc 142.8 Estimated GFR > 60 Random Glucose 137 H (60-115) mg/dL Calcium 9.9 D (8.4-10.2) mg/dL Magnesium 1.8 (1.6-2.6) mg/dL Total Bilirubin 0.7 (0.0-1.0) mg/dL Direct Bilirubin 0.2 (0.0-0.5) mg/dL AST 16 (5-37) U/L ALT 18 (0-40) U/L Alkaline Phosphatase 83 (39-117) U/L Total Protein 7.1 (6.5-8.0) g/dL Albumin 4.5 (3.5-5.0) g/dL Lipase 8 (8-78) U/L Urine Color Dark Yellow Urine Appearance Clear Urine pH 7.0 (5.0-9.0) Ur Specific [place] >= 1.030 H (1.005-1.025) Urine Protein 30 (1+) H (Neg-Trace) mg/dL Urine Glucose (UA) Negative (Negative) mg/dL Urine Ketones 15 (Negative) mg/dL Urine Blood Negative (Negative) Urine Nitrite Negative (Negative) Ur Leukocyte Esterase Negative (Negative) Urine RBC 3-5 H (0-2) /HPF Urine WBC 0-5 (0-5) /HPF Ur Squamous Epith Cells 0-2 (0-2) /HPF Urine Bacteria None Seen (None Seen) Hyaline Casts 0-2 (0-2) /LPF Urine Opiates Screen (Not Detect) Urine Fentanyl Screen (Not Detect) Ur Barbiturates Screen (Not Detect) Ur Phencyclidine Scrn (Not Detect) Ur Amphetamines Screen (Not Detect) U Benzodiazepines Scrn (Not Detect) Urine Cocaine Screen (Not Detect) U Marijuana (THC) Screen (Not Detect) 02/09/23 Range/Units 12:00 WBC (4.8-10.8) X10*3/uL RBC (4.60-5.80) X10*6/uL Hgb (14.0-18.0) g/dl Hct (42.0-52.0) % MCV (80.0-98.0) fL MCH (27.0-33.0) pg MCHC (31.0-36.0) g/dl RDW (11.0-16.0) % Plt Count (160-400) X10*3/uL MPV (9.4-12.4) fL Immature Gran % (Auto) (0.0-0.4) % Neut % (Auto) (45-73) % Lymph % (Auto) (20-40) % [place] % (Auto) (2-11) % Eos % (Auto) (0-4) % Baso % (Auto) (0-2) % Lymph # (Auto) (1.2-4.9) X10*3/uL [place] # (Auto) (0.1-1.2) X10*3/uL Eos # (Auto) (0.0-0.4) X10*3/uL Baso # (Auto) (0.0-0.2) X10*3/uL Abs Immat Gran (auto) (0.00-0.03) X10*3/uL Absolute Neuts (auto) (2.0-8.3) x10*3/uL Absolute Nucleated RBC (0.0-0.012) X10*3/uL Nucleated RBC % (auto) (0.0-0.2) /100WBC Sodium (135-145) mmol/L Potassium (3.3-5.1) mmol/L Chloride (96-108) mmol/L Carbon Dioxide (22-29) mmol/L Anion Gap (12-20) BUN (9-16) mg/dL Creatinine (0.5-1.4) mg/dL Estim Creat Clear Calc Estimated GFR Random Glucose (60-115) mg/dL Calcium (8.4-10.2) mg/dL Magnesium (1.6-2.6) mg/dL Total Bilirubin (0.0-1.0) mg/dL Direct Bilirubin (0.0-0.5) mg/dL AST (5-37) U/L ALT (0-40) U/L Alkaline Phosphatase (39-117) U/L Total Protein (6.5-8.0) g/dL Albumin (3.5-5.0) g/dL Lipase (8-78) U/L Urine Color Urine Appearance Urine pH (5.0-9.0) Ur Specific [place] (1.005-1.025) Urine Protein (Neg-Trace) mg/dL Urine Glucose (UA) (Negative) mg/dL Urine Ketones (Negative) mg/dL Urine Blood (Negative) Urine Nitrite (Negative) Ur Leukocyte Esterase (Negative) Urine RBC (0-2) /HPF Urine WBC (0-5) /HPF Ur Squamous Epith Cells (0-2) /HPF Urine Bacteria (None Seen) Hyaline Casts (0-2) /LPF Urine Opiates Screen POSITIVE H (Not Detect) Urine Fentanyl Screen POSITIVE H (Not Detect) Ur Barbiturates Screen Not Detected (Not Detect) Ur Phencyclidine Scrn Not Detected (Not Detect) Ur Amphetamines Screen Not Detected (Not Detect) U Benzodiazepines Scrn Not Detected (Not Detect) Urine Cocaine Screen Not Detected (Not Detect) U Marijuana (THC) Screen POSITIVE H (Not Detect) Radiology Impression Discussion of test interpretation with radiology: I have reviewed the radiologist's reading. External Record Review External record reviewed: Inpatient record, Office record, Outpatient record, Prior outpatient labs, Prior outpatient radiology, Primary care record and Outside ED record Medications Administered Discontinued Medications Generic Name Dose Route Start Last Admin Trade Name Augustusq PRN Reason Stop Dose Admin Al Hydroxide/Mg Hydroxide 30 ml 02/09/23 13:53 02/09/23 14:14 Magnesium Hydrox/Alum Hydrox 30 Ml Oral.Susp PO 02/09/23 13:54 30 ml ONCE ONE Administration Belladonna Alkaloids/Phenobarbital 10 ml 02/09/23 13:53 02/09/23 14:15 Phenobarb/Hyoscy/Atropine/Scop 10 Ml Elixir PO 02/09/23 13:54 10 ml ONCE ONE Administration Famotidine 20 mg 02/09/23 13:53 02/09/23 14:15 Famotidine 20 Mg Tablet PO 02/09/23 13:54 20 mg ONCE ONE Administration Lidocaine HCl 15 ml 02/09/23 13:53 02/09/23 14:14 Lidocaine Hcl Viscous 2 % 15 Ml Solution MUCOUS MEM 02/09/23 13:54 Not Given ONCE ONE Discharge Plan Discharge Clinical Impression: Constipation Patient Disposition: Home, Self-Care Instructions: Constipation (ED), High Fiber Diet (ED), Acute Abdominal Pain (ED) Additional Instructions: Your x-ray today shows that you have moderate constipation. Using opiates like heroin/fentanyl will increase the likelihood of you having constipation. I offered services for recovery, however you declined this today. Please take prescribed medication as directed. Drink plenty of fluids and get plenty of rest. See attached paperwork for further guidance on dietary changes you can make to help reduce likelihood of constipation. If any new or worsening symptoms occur, including but not limited to fevers, chills, worsening abdominal pain, nausea, vomiting, or chest pain, shortness of breath, please return for re-evaluation. Follow-up with your primary care physician. Prescriptions: New polyethylene glycol 3350 [Miralax] 17 gram powder in packet 17 g PO DAILY Qty: 30 0RF docusate calcium 240 mg capsule 240 mg PO DAILY Qty: 30 0RF ondansetron HCl 4 mg tablet 4 mg PO Q6-8H PRN (Reason: nausea and vomiting) Qty: 14 0RF No Action oxycodone-acetaminophen [Percocet] 5-325 mg tablet 1 tab PO Q6H PRN (Reason: pain) Qty: 20 0RF amoxicillin-pot clavulanate [Augmentin] 875-125 mg tablet 1 tab PO BID Qty: 20 0RF loperamide 2 mg capsule 2 mg PO QID PRN (Reason: loose stool) Qty: 10 0RF naproxen 500 mg tablet 500 mg PO BID PRN (Reason: pain) Qty: 30 0RF cyclobenzaprine 10 mg tablet 10 mg PO TID PRN (Reason: muscle spasm) Qty: 14 0RF cephalexin 500 mg capsule 500 mg PO QID 7 Days Qty: 28 0RF doxycycline hyclate 100 mg tablet 100 mg PO BID 7 Days Qty: 14 0RF ondansetron 4 mg tablet,disintegrating 4 mg PO Q8H PRN (Reason: nausea and vomiting) Qty: 7 0RF ondansetron 4 mg tablet,disintegrating 4 mg PO TID PRN (Reason: nausea and vomiting) 5 Days Qty: 10 0RF cephalexin 500 mg capsule 500 mg PO Q6H 7 Days Qty: 28 0RF doxycycline hyclate 100 mg tablet 100 mg PO BID 7 Days Qty: 14 0RF loperamide 2 mg capsule 2 mg PO Q6H PRN (Reason: loose stool) Qty: 20 0RF ondansetron 4 mg tablet,disintegrating 4 mg PO Q6H PRN (Reason: nausea and vomiting) Qty: 14 0RF ondansetron 4 mg tablet,disintegrating 4 mg PO Q6H PRN (Reason: nausea and vomiting) 2 Days Qty: 8 0RF ondansetron 4 mg tablet,disintegrating 4 mg PO Q8H PRN (Reason: nausea and vomiting) Qty: 8 0RF ondansetron 4 mg tablet,disintegrating 4 mg PO Q8-12H PRN (Reason: nausea and vomiting) Qty: 10 0RF
[2023-02-09 11:46] VITALS: BP 115/64; PULSE 66; RESP 20; TEMP 36.2; O2SAT 96; BMI 24.1
[2023-02-09] MEDS: Magnesium Hydrox/Alum Hydrox 30 ML ORAL.SUSP PO (14:14)
[2023-02-09] MEDS: PHENobarb/Hyoscy/Atropine/Scop 10 ML ELIXIR PO (14:15)
[2023-02-09] MEDS: Famotidine 20 MG TABLET PO (14:15)
[2023-02-09 14:18] VITALS: BP 102/54; PULSE 57; RESP 14; TEMP 37.1; O2SAT 97
[2023-02-09 15:46] VITALS: BP 120/71; PULSE 72; RESP 16; TEMP 36.9; O2SAT 98
== END 2023-02-09 16:01 | disposition home or self-care (01) ==
PROVIDERS: Emergency Provider Emergency Medicine
DX: K59.00 Constipation, unspecified (principal); F31.9 Bipolar disorder, unspecified; R56.9 Unspecified convulsions; F12.90 Cannabis use, unspecified, uncomplicated; Z79.899 Other long term (current) drug therapy
CPT/HCPCS: 36415; 74018; 80048; 80076; 80307; 81001; 83690; 83735; 85025; 99283; 99284

== ENCOUNTER 2023-03-11 08:01 | Emergency (ER) | payer MEDICAID, SELFPAY ==
[2023-03-11 08:04] VITALS: BP 120/72; PULSE 70; RESP 16; TEMP 36.1; O2SAT 97; BMI 23.6
[2023-03-11 08:31] VITALS: BP 118/64; PULSE 54; RESP 16; TEMP 36.6; O2SAT 98
--- NOTE | 2023-03-11 08:39 | ED.NAVMDI ---
HPI - Nausea/Vomiting/Diarrhea General Chief complaint: Nausea/Vomiting/Diarrhea Stated complaint: Vomiting Time Seen by Provider: 03/11/23 08:22 Source: patient Mode of arrival: ambulatory Limitations: no limitations History of Present Illness HPI Narrative: this is a 25 years old male presented to the emergency department complaining of nausea and vomiting since this morning. 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 and that way he hill with gastroenteritis, denies any abdominal pain any diarrhea MD elicited complaint: nausea and vomiting Onset (ago): hour(s) (3) Description of diarrhea: watery Associated nausea: Yes Associated abdominal pain: No Quality: cramping Exacerbating factors: none Relieving factors: none Related Data Previous Rx's Medication Instructions Recorded amoxicillin 875 mg-potassium 1 tab PO BID #20 tabs 07/01/21 clavulanate 125 mg tablet (Augmentin) oxycodone-acetaminophen 5 mg-325 1 tab PO Q6H PRN pain #20 tabs 07/01/21 mg tablet (Percocet) cyclobenzaprine 10 mg tablet 10 mg PO TID PRN muscle spasm #14 12/21/21 tabs naproxen 500 mg tablet 500 mg PO BID PRN pain #30 tabs 12/21/21 cephalexin 500 mg capsule 500 mg PO QID 7 days #28 caps 03/26/22 doxycycline hyclate 100 mg tablet 100 mg PO BID 7 days #14 tabs 03/26/22 ondansetron 4 mg disintegrating 4 mg PO Q8H PRN nausea and 04/05/22 tablet vomiting #7 tabs loperamide 2 mg capsule 2 mg PO QID PRN loose stool #10 06/06/22 caps ondansetron 4 mg disintegrating 4 mg PO TID PRN nausea and 06/18/22 tablet vomiting 5 days #10 tabs cephalexin 500 mg capsule 500 mg PO Q6H 7 days #28 caps 09/10/22 doxycycline hyclate 100 mg tablet 100 mg PO BID 7 days #14 tabs 09/10/22 ondansetron 4 mg disintegrating 4 mg PO Q6H PRN nausea and 11/19/22 tablet vomiting 2 days #8 tabs ondansetron 4 mg disintegrating 4 mg PO Q8H PRN nausea and 11/20/22 tablet vomiting #8 tabs ondansetron 4 mg disintegrating 4 mg PO Q8-12H PRN nausea and 12/11/22 tablet vomiting #10 tabs loperamide 2 mg capsule 2 mg PO Q6H PRN loose stool #20 12/27/22 caps ondansetron 4 mg disintegrating 4 mg PO Q6H PRN nausea and 12/27/22 tablet vomiting #14 tabs docusate calcium 240 mg capsule 240 mg PO DAILY #30 caps 02/09/23 ondansetron HCl 4 mg tablet 4 mg PO Q6-8H PRN nausea and 02/09/23 vomiting #14 tabs polyethylene glycol 3350 17 gram 17 g PO DAILY #30 ea 02/09/23 oral powder packet (Miralax) Allergies Allergy/AdvReac Type Severity Reaction Status Date / Time No Known Allergies Allergy Verified 12/11/22 21:13 [No Known Allergies*] Review of Systems Constitutional: Constitutional: Reports no additional constitutional complaints Cardiovascular: Cardiovascular: Reports no additional cardiovascular complaints Gastrointestinal: Gastrointestinal: Reports nausea and Reports vomiting [facility] Past Medical History Medical History Bipolar 1 disorder Depression Patient denies significant medical history Seizure Surgical History No significant past surgical history Social History Social History Alcohol intake: current Alcohol intake frequency: holidays/special occasions only Substance Use Type: Marijuana Advance Directives: No Advance Directives Information Provided: No Physical Exam Vital Signs: Vital Signs: Last Vital Signs Temp 97.9 F 03/11/23 08:31 Pulse 54 03/11/23 08:31 Resp 16 03/11/23 08:31 BP 118/64 03/11/23 08:31 Pulse Ox 98 03/11/23 08:31 O2 Del Method Room Air 03/11/23 08:31 BMI result Body Mass Index 23.6 Const: General: cooperative Nutritional Appearance: average body habitus Orientation/consciousness: patient oriented x3 Limitations: no limitations HEENT: Head: Yes normal to inspection General nose exam: Normal external nose present Face and sinus: Yes normal facial exam Mouth: Normal oral and palatal mucosa present Teeth and gingiva: dentition normal Neck: Neck: Yes normal visual inspection and Yes full ROM Resp: Effort & Inspection: normal respiratory effort Auscultation: clear to auscultation bilaterally Cardio: Jugular venous distension: no JVD Rate: regular rate Rhythm: regular rhythm GI: Inspection: Yes normal to inspection Palpation (GI): Soft to palpation, not firm and nontender Percussion: Yes normal to percussion Auscultation: normal bowel sounds Skin: General skin exam: no rashes or lesions noted Lesions: no lesions Rashes: no rashes Neuro: General: patient oriented x3 Cranial nerves: Yes CN's II-XII intact bilaterally Cognition (Neuro): normal cognition Gait exam (Neuro): Normal gait present Motor exam (neuro): 5/5 motor strength present throughout Course Reevaluation(s) Reevaluation #1: Feels much better,tolerating po well labs wnl Time: 10:36 Medications Administered Discontinued Medications Generic Name Dose Route Start Last Admin Trade Name Freq PRN Reason Stop Dose Admin Sodium Chloride 1,000 mls @ 999 mls/hr 03/11/23 08:30 03/11/23 09:57 Ns IVCONT 03/11/23 09:30 Not Given .Q1H1M TUNDE Ondansetron HCl 4 mg 03/11/23 09:51 03/11/23 09:56 Ondansetron Odt 4 Mg Tab.Rapdis TRANSLINGU 03/11/23 09:52 4 mg ONCE ONE Administration Medical Decision Making Medical Decision Making [facility] Narrative: patient presented to the ED with nausea vomiting, will check blood work will administer antiemetics 10:39 AM feels much better he is tolerating p.o. well, labs within normal limit, vital signs stable no tachycardia at this point I think can be discharged home most likely viral illness Differential Diagnosis Differential Diagnoses: The differential diagnosis associated with the presentation includes gastroenteritis/ cyclic vomiting /dehydration /renal failure Admission/Observation Consideration of admission/observation: Escalation of care including admission/observation considered Lab Data [facility] Lab Attestation statement: I reviewed the patient's lab results. 03/11/23 08:37 03/11/23 08:37 Labs: Lab Results 03/11/23 03/11/23 Range/Units 08:37 08:37 WBC 4.6 L (4.8-10.8) X10*3/uL RBC 4.73 (4.60-5.80) X10*6/uL Hgb 13.9 L (14.0-18.0) g/dl Hct 40.4 L (42.0-52.0) % MCV 85.4 (80.0-98.0) fL MCH 29.4 (27.0-33.0) pg MCHC 34.4 (31.0-36.0) g/dl RDW 11.9 (11.0-16.0) % Plt Count 147 L (160-400) X10*3/uL MPV 9.9 (9.4-12.4) fL Immature Gran % (Auto) 0.2 (0.0-0.4) % Neut % (Auto) 48.2 (45-73) % Lymph % (Auto) 40.3 H (20-40) % [place] % (Auto) 7.4 (2-11) % Eos % (Auto) 3.5 (0-4) % Baso % (Auto) 0.4 (0-2) % Lymph # (Auto) 1.9 (1.2-4.9) X10*3/uL [place] # (Auto) 0.3 (0.1-1.2) X10*3/uL Eos # (Auto) 0.2 (0.0-0.4) X10*3/uL Baso # (Auto) 0.0 (0.0-0.2) X10*3/uL Abs Immat Gran (auto) 0.01 (0.00-0.03) X10*3/uL Absolute Neuts (auto) 2.2 (2.0-8.3) x10*3/uL Absolute Nucleated RBC 0.000 (0.0-0.012) X10*3/uL Nucleated RBC % (auto) 0.0 (0.0-0.2) /100WBC Sodium 138 (135-145) mmol/L Potassium 3.7 (3.3-5.1) mmol/L Chloride 104 (96-108) mmol/L Carbon Dioxide 25 (22-29) mmol/L Anion Gap 13 (12-20) BUN 7 L (9-16) mg/dL Creatinine 0.74 (0.5-1.4) mg/dL Estim Creat Clear Calc 148.6 Estimated GFR > 60 Random Glucose 94 (60-115) mg/dL Calcium 9.0 D (8.4-10.2) mg/dL Total Bilirubin 0.5 (0.0-1.0) mg/dL AST 17 (5-37) U/L ALT 19 (0-40) U/L Alkaline Phosphatase 66 (39-117) U/L Total Protein 6.1 L (6.5-8.0) g/dL Albumin 3.8 (3.5-5.0) g/dL Lipase 8 (8-78) U/L Discharge Plan Discharge Clinical Impression: Vomiting Patient Disposition: Home, Self-Care Instructions: Acute Nausea and Vomiting (ED) Additional Instructions: stay on liquid diet today, rest, return to the emergency room if you are feeling worse. Prescriptions: No Action oxycodone-acetaminophen [Percocet] 5-325 mg tablet 1 tab PO Q6H PRN (Reason: pain) Qty: 20 0RF amoxicillin-pot clavulanate [Augmentin] 875-125 mg tablet 1 tab PO BID Qty: 20 0RF loperamide 2 mg capsule 2 mg PO QID PRN (Reason: loose stool) Qty: 10 0RF naproxen 500 mg tablet 500 mg PO BID PRN (Reason: pain) Qty: 30 0RF cyclobenzaprine 10 mg tablet 10 mg PO TID PRN (Reason: muscle spasm) Qty: 14 0RF cephalexin 500 mg capsule 500 mg PO QID 7 Days Qty: 28 0RF doxycycline hyclate 100 mg tablet 100 mg PO BID 7 Days Qty: 14 0RF ondansetron 4 mg tablet,disintegrating 4 mg PO Q8H PRN (Reason: nausea and vomiting) Qty: 7 0RF ondansetron 4 mg tablet,disintegrating 4 mg PO TID PRN (Reason: nausea and vomiting) 5 Days Qty: 10 0RF cephalexin 500 mg capsule 500 mg PO Q6H 7 Days Qty: 28 0RF doxycycline hyclate 100 mg tablet 100 mg PO BID 7 Days Qty: 14 0RF loperamide 2 mg capsule 2 mg PO Q6H PRN (Reason: loose stool) Qty: 20 0RF ondansetron 4 mg tablet,disintegrating 4 mg PO Q6H PRN (Reason: nausea and vomiting) Qty: 14 0RF ondansetron 4 mg tablet,disintegrating 4 mg PO Q6H PRN (Reason: nausea and vomiting) 2 Days Qty: 8 0RF ondansetron 4 mg tablet,disintegrating 4 mg PO Q8H PRN (Reason: nausea and vomiting) Qty: 8 0RF ondansetron 4 mg tablet,disintegrating 4 mg PO Q8-12H PRN (Reason: nausea and vomiting) Qty: 10 0RF polyethylene glycol 3350 [Miralax] 17 gram powder in packet 17 g PO DAILY Qty: 30 0RF docusate calcium 240 mg capsule 240 mg PO DAILY Qty: 30 0RF ondansetron HCl 4 mg tablet 4 mg PO Q6-8H PRN (Reason: nausea and vomiting) Qty: 14 0RF Referrals: Physician,None [Primary Care Provider] - 2 days ( Follow-up with you primary care physician) Stand Alone Forms: Work/School Release
[2023-03-11 08:46] LABS: MANUAL DIFF FLAG NO
[2023-03-11 08:54] LABS: Basophils Percent Auto 0.4 % (0-2); Eosinophils Absolute Auto 0.2 X10*3/uL (0.0-0.4); Eosinophils Percent Auto 3.5 % (0-4); Hematocrit 40.4 % (42.0-52.0); Hemoglobin 13.9 g/dl (14.0-18.0); Imm Gran Abs Auto 0.01 X10*3/uL (0.00-0.03); Imm Gran Pct Auto 0.2 % (0.0-0.4); Lymphocytes Absolute Auto 1.9 X10*3/uL (1.2-4.9); Lymphocytes Percent Auto 40.3 % (20-40); Mean Corpuscular HGB Conc 34.4 g/dl (31.0-36.0); Mean Corpuscular Hemoglobin 29.4 pg (27.0-33.0); Mean Corpuscular Volume 85.4 fL (80.0-98.0); Mean Platelet Volume 9.9 fL (9.4-12.4); Monocytes Absolute Auto 0.3 X10*3/uL (0.1-1.2); Monocytes Percent Auto 7.4 % (2-11); Neutrophils Absolute Auto 2.2 x10*3/uL (2.0-8.3); Neutrophils Percent Auto 48.2 % (45-73); Platelet Count 147 X10*3/uL (160-400); Red Blood Count 4.73 X10*6/uL (4.60-5.80); Red Cell Distribution Width 11.9 % (11.0-16.0); White Blood Count 4.6 X10*3/uL (4.8-10.8)
[2023-03-11 09:23] LABS: Alanine Aminotransferase 19 U/L (0-40); Albumin Level 3.8 g/dL (3.5-5.0); Alkaline Phosphatase 66 U/L (39-117); Anion Gap 13 (12-20); Aspartate Amino Transferase 17 U/L (5-37); Bilirubin Total 0.5 mg/dL (0.0-1.0); Blood Urea Nitrogen 7 mg/dL (9-16); Carbon Dioxide 25 mmol/L (22-29); Chloride 104 mmol/L (96-108); Creatinine Clr Calc Pharmacy 148.6; Estimated Glomerular Filt Rate > 60; Glucose Random 94 mg/dL (60-115); Lipase 8 U/L (8-78); Potassium 3.7 mmol/L (3.3-5.1); Sodium 138 mmol/L (135-145); Total Protein 6.1 g/dL (6.5-8.0)
[2023-03-11] MEDS: Ondansetron ODT 4 MG TAB.RAPDIS TRANSLINGU (09:56)
--- NOTE | 2023-03-11 10:52 | PC.NURSE ---
Pt is medically cleared for discharge. discharge instructions reviewed with pt. Independent and ambulatory. No complaints at discharge.
== END 2023-03-11 10:53 | disposition home or self-care (01) ==
PROVIDERS: Emergency Provider Emergency Medicine
DX: R11.2 Nausea with vomiting, unspecified (principal); F12.90 Cannabis use, unspecified, uncomplicated
CPT/HCPCS: 36415; 80053; 83690; 85025; 99283

== ENCOUNTER 2023-03-19 09:21 | Emergency (ER) | payer MEDICAID, SELFPAY ==
[2023-03-19 09:33] VITALS: BP 117/62; PULSE 59; RESP 18; TEMP 36.8; O2SAT 99; BMI 23.5
[2023-03-19 09:50] LABS: MANUAL DIFF FLAG NO
[2023-03-19 09:51] LABS: Basophils Absolute Auto 0.1 X10*3/uL (0.0-0.2); Basophils Percent Auto 0.8 % (0-2); Eosinophils Absolute Auto 0.1 X10*3/uL (0.0-0.4); Eosinophils Percent Auto 1.3 % (0-4); Hematocrit 43.9 % (42.0-52.0); Hemoglobin 15.3 g/dl (14.0-18.0); Imm Gran Abs Auto 0.02 X10*3/uL (0.00-0.03); Imm Gran Pct Auto 0.3 % (0.0-0.4); Lymphocytes Absolute Auto 1.2 X10*3/uL (1.2-4.9); Lymphocytes Percent Auto 19.8 % (20-40); Mean Corpuscular HGB Conc 34.9 g/dl (31.0-36.0); Mean Corpuscular Hemoglobin 29.1 pg (27.0-33.0); Mean Corpuscular Volume 83.6 fL (80.0-98.0); Mean Platelet Volume 9.8 fL (9.4-12.4); Monocytes Absolute Auto 0.3 X10*3/uL (0.1-1.2); Monocytes Percent Auto 4.2 % (2-11); Neutrophils Absolute Auto 4.6 x10*3/uL (2.0-8.3); Neutrophils Percent Auto 73.6 % (45-73); Platelet Count 189 X10*3/uL (160-400); Red Blood Count 5.25 X10*6/uL (4.60-5.80); Red Cell Distribution Width 11.9 % (11.0-16.0); White Blood Count 6.2 X10*3/uL (4.8-10.8)
[2023-03-19 10:07] LABS: Alanine Aminotransferase 19 U/L (0-40); Albumin Level 4.8 g/dL (3.5-5.0); Alkaline Phosphatase 76 U/L (39-117); Anion Gap 14 (12-20); Aspartate Amino Transferase 17 U/L (5-37); Bilirubin Direct 0.3 mg/dL (0.0-0.5); Bilirubin Total 0.9 mg/dL (0.0-1.0); Blood Urea Nitrogen 11 mg/dL (9-16); Calcium 10.1 mg/dL (8.4-10.2); Carbon Dioxide 28 mmol/L (22-29); Chloride 103 mmol/L (96-108); Creatinine Clr Calc Pharmacy 119.5; Estimated Glomerular Filt Rate > 60; Glucose Random 80 mg/dL (60-115); Lipase 13 U/L (8-78); Potassium 4.5 mmol/L (3.3-5.1); Sodium 140 mmol/L (135-145); Total Protein 7.6 g/dL (6.5-8.0)
[2023-03-19 12:50] VITALS: BP 126/61; PULSE 67; RESP 16; TEMP 36.7; O2SAT 100
--- NOTE | 2023-03-19 12:56 | PC.NURSE ---
Pt stated he woke up at 4Am vomiting, stated he came to ED at 8AM. Stated he has not thrown up since arrival to ED, feels a lot better but still feels nauseous. Call tian with in reach.
--- NOTE | 2023-03-19 13:37 | ED_ITS ---
HPI - General Adult General Chief complaint: General Medical Stated complaint: Vomiting Time Seen by Provider: 03/19/23 12:57 Source: patient Mode of arrival: ambulatory History of Present Illness HPI narrative: 27-year-old male who initially reported vomiting since waking up this morning, he did try a hot shower, does smoke cannabis at baseline and states that the shower did not help out but he became very sweaty and lightheaded with a vomiting and decided come to the emergency room for further evaluation. Since waiting to be seen patient reports that he has been able to tolerate liquids and solids and is otherwise feeling much better and wishes to go home but is requesting a prescription for Zofran. Related Data Previous Rx's Medication Instructions Recorded amoxicillin 875 mg-potassium 1 tab PO BID #20 tabs 07/01/21 clavulanate 125 mg tablet (Augmentin) oxycodone-acetaminophen 5 mg-325 1 tab PO Q6H PRN pain #20 tabs 07/01/21 mg tablet (Percocet) cyclobenzaprine 10 mg tablet 10 mg PO TID PRN muscle spasm #14 12/21/21 tabs naproxen 500 mg tablet 500 mg PO BID PRN pain #30 tabs 12/21/21 cephalexin 500 mg capsule 500 mg PO QID 7 days #28 caps 03/26/22 doxycycline hyclate 100 mg tablet 100 mg PO BID 7 days #14 tabs 03/26/22 ondansetron 4 mg disintegrating 4 mg PO Q8H PRN nausea and 04/05/22 tablet vomiting #7 tabs loperamide 2 mg capsule 2 mg PO QID PRN loose stool #10 06/06/22 caps ondansetron 4 mg disintegrating 4 mg PO TID PRN nausea and 06/18/22 tablet vomiting 5 days #10 tabs cephalexin 500 mg capsule 500 mg PO Q6H 7 days #28 caps 09/10/22 doxycycline hyclate 100 mg tablet 100 mg PO BID 7 days #14 tabs 09/10/22 ondansetron 4 mg disintegrating 4 mg PO Q6H PRN nausea and 11/19/22 tablet vomiting 2 days #8 tabs ondansetron 4 mg disintegrating 4 mg PO Q8H PRN nausea and 11/20/22 tablet vomiting #8 tabs ondansetron 4 mg disintegrating 4 mg PO Q8-12H PRN nausea and 12/11/22 tablet vomiting #10 tabs loperamide 2 mg capsule 2 mg PO Q6H PRN loose stool #20 12/27/22 caps ondansetron 4 mg disintegrating 4 mg PO Q6H PRN nausea and 12/27/22 tablet vomiting #14 tabs docusate calcium 240 mg capsule 240 mg PO DAILY #30 caps 02/09/23 ondansetron HCl 4 mg tablet 4 mg PO Q6-8H PRN nausea and 02/09/23 vomiting #14 tabs polyethylene glycol 3350 17 gram 17 g PO DAILY #30 ea 02/09/23 oral powder packet (Miralax) ondansetron 4 mg oral soluble film 4 mg PO Q8H PRN nausea and 03/19/23 vomiting #30 ea Allergies Allergy/AdvReac Type Severity Reaction Status Date / Time No Known Allergies Allergy Verified 12/11/22 21:13 [No Known Allergies*] Review of Systems Review of Systems: Pertinent positives and negatives as stated in HPI PMFSH Past Medical History Source: nursing notes reviewed Medical History Bipolar 1 disorder Depression Patient denies significant medical history Seizure Surgical History No significant past surgical history Social History Social History Alcohol intake: current Alcohol intake frequency: does not drink Smoked in Last 30 Days: Yes Use of substances other than those prescribed or required for medical reasons: Yes Substance Use Type: Marijuana Substance Use Frequency: Weekly Last Used Substance: Hours (ago) Advance Directives: No Advance Directives Information Provided: Yes Physical Exam ED Vital Signs: Vital Signs - 24 hr 03/19/23 09:33 03/19/23 12:50 Temperature 98.3 F 98.1 F Pulse Rate 59 67 Respiratory Rate 18 16 Blood Pressure 117/62 126/61 Pulse Oximetry 99 100 Oxygen Delivery Method Room Air Room Air BMI result Body Mass Index 23.5 VITAL SIGNS: Reviewed. GENERAL: Well developed, well nourished, in no acute distress. HEAD: Normocephalic/atraumatic EYES: PERRLA, EOMI EARS: Ext canals without abnormality NOSE: Nares patent bilateral OROPHARYNX: no oral lesions noted, posterior pharynx clear NECK: Supple, no adenopathy LUNGS: Normal breath sounds. No adventitious sounds or accessory muscle use. SpO2<100> CARDIOVASCULAR: Regular rate and rhythm without noted murmurs ABDOMEN: Soft, non-tender, non-distended with bowel sounds. MUSCULOSKELETAL: No tenderness, deformities, or effusions noted on gross inspection. EXTREMITIES: No cyanosis, clubbing or edema. SKIN: Inspection of the skin reveals no rashes NEUROLOGIC: Alert and oriented x 4. Strength and sensation to light touch were grossly intact x 4. Medical Decision Making Medical Decision Making MDM Narrative: 27-year-old male who is completely asymptomatic at this time and tolerating p.o. intake, no evidence to suggest appendicitis/obstruction/renal calculi/urinary symptoms. Patient does endorse that he smokes cannabis that this has happened previously as well. I did review workup which demonstrates hematologic indices that do not and Elana infection as there is no leukocytosis, there is a minor left shift that is likely stress related as patient is afebrile and has no other medical complaints at this time. There is no evidence of anemia or thrombocytopenia. Chemistry indices demonstrate electrolyte and liver enzyme stability and there is no EUGENIA. Is my interpretation that patient suffered a bout of cyclical vomiting which has since resolved likely secondary to cannabis use. He is being discharged and will follow-up with his primary care doctor and get a prescription for Zofran. Differential Diagnosis Differential Diagnoses: The differential diagnosis associated with the presentation includes Please see the discussion above Admission/Observation Consideration of admission/observation: Escalation of care including admission/observation considered Please see the discussion above Lab Data MDM Lab Attestation statement: I reviewed the patient's lab results. Please see the discussion above 03/19/23 09:40 03/19/23 09:40 Labs: Lab Results 03/19/23 03/19/23 Range/Units 09:40 09:40 WBC 6.2 (4.8-10.8) X10*3/uL RBC 5.25 (4.60-5.80) X10*6/uL Hgb 15.3 (14.0-18.0) g/dl Hct 43.9 (42.0-52.0) % MCV 83.6 (80.0-98.0) fL MCH 29.1 (27.0-33.0) pg MCHC 34.9 (31.0-36.0) g/dl RDW 11.9 (11.0-16.0) % Plt Count 189 D (160-400) X10*3/uL MPV 9.8 (9.4-12.4) fL Immature Gran % (Auto) 0.3 (0.0-0.4) % Neut % (Auto) 73.6 H (45-73) % Lymph % (Auto) 19.8 L (20-40) % [place] % (Auto) 4.2 (2-11) % Eos % (Auto) 1.3 (0-4) % Baso % (Auto) 0.8 (0-2) % Lymph # (Auto) 1.2 (1.2-4.9) X10*3/uL [place] # (Auto) 0.3 (0.1-1.2) X10*3/uL Eos # (Auto) 0.1 (0.0-0.4) X10*3/uL Baso # (Auto) 0.1 (0.0-0.2) X10*3/uL Abs Immat Gran (auto) 0.02 (0.00-0.03) X10*3/uL Absolute Neuts (auto) 4.6 (2.0-8.3) x10*3/uL Absolute Nucleated RBC 0.000 (0.0-0.012) X10*3/uL Nucleated RBC % (auto) 0.0 (0.0-0.2) /100WBC Sodium 140 (135-145) mmol/L Potassium 4.5 D (3.3-5.1) mmol/L Chloride 103 (96-108) mmol/L Carbon Dioxide 28 (22-29) mmol/L Anion Gap 14 (12-20) BUN 11 (9-16) mg/dL Creatinine 0.92 (0.5-1.4) mg/dL Estim Creat Clear Calc 119.5 Estimated GFR > 60 Random Glucose 80 (60-115) mg/dL Calcium 10.1 D (8.4-10.2) mg/dL Total Bilirubin 0.9 (0.0-1.0) mg/dL Direct Bilirubin 0.3 (0.0-0.5) mg/dL AST 17 (5-37) U/L ALT 19 (0-40) U/L Alkaline Phosphatase 76 (39-117) U/L Total Protein 7.6 (6.5-8.0) g/dL Albumin 4.8 (3.5-5.0) g/dL Lipase 13 (8-78) U/L Discharge Plan Discharge Clinical Impression: Cyclical vomiting, Cannabis use disorder Patient Disposition: Home, Self-Care Instructions: Cyclic Vomiting Syndrome (ED) Additional Instructions: 1. Please continue to increase the amount of food and water that you consume today to help counteract the episode of nausea vomiting that you were experiencing earlier. 2. You have received a prescription for Zofran, this is antinausea medication. 3. Please follow-up with your primary care provider next 1-2 days. Return to the ER for any worsening symptoms. Prescriptions: New ondansetron 4 mg film 4 mg PO Q8H PRN (Reason: nausea and vomiting) Qty: 30 0RF No Action oxycodone-acetaminophen [Percocet] 5-325 mg tablet 1 tab PO Q6H PRN (Reason: pain) Qty: 20 0RF amoxicillin-pot clavulanate [Augmentin] 875-125 mg tablet 1 tab PO BID Qty: 20 0RF loperamide 2 mg capsule 2 mg PO QID PRN (Reason: loose stool) Qty: 10 0RF naproxen 500 mg tablet 500 mg PO BID PRN (Reason: pain) Qty: 30 0RF cyclobenzaprine 10 mg tablet 10 mg PO TID PRN (Reason: muscle spasm) Qty: 14 0RF cephalexin 500 mg capsule 500 mg PO QID 7 Days Qty: 28 0RF doxycycline hyclate 100 mg tablet 100 mg PO BID 7 Days Qty: 14 0RF ondansetron 4 mg tablet,disintegrating 4 mg PO Q8H PRN (Reason: nausea and vomiting) Qty: 7 0RF ondansetron 4 mg tablet,disintegrating 4 mg PO TID PRN (Reason: nausea and vomiting) 5 Days Qty: 10 0RF cephalexin 500 mg capsule 500 mg PO Q6H 7 Days Qty: 28 0RF doxycycline hyclate 100 mg tablet 100 mg PO BID 7 Days Qty: 14 0RF loperamide 2 mg capsule 2 mg PO Q6H PRN (Reason: loose stool) Qty: 20 0RF ondansetron 4 mg tablet,disintegrating 4 mg PO Q6H PRN (Reason: nausea and vomiting) Qty: 14 0RF ondansetron 4 mg tablet,disintegrating 4 mg PO Q6H PRN (Reason: nausea and vomiting) 2 Days Qty: 8 0RF ondansetron 4 mg tablet,disintegrating 4 mg PO Q8H PRN (Reason: nausea and vomiting) Qty: 8 0RF ondansetron 4 mg tablet,disintegrating 4 mg PO Q8-12H PRN (Reason: nausea and vomiting) Qty: 10 0RF polyethylene glycol 3350 [Miralax] 17 gram powder in packet 17 g PO DAILY Qty: 30 0RF docusate calcium 240 mg capsule 240 mg PO DAILY Qty: 30 0RF ondansetron HCl 4 mg tablet 4 mg PO Q6-8H PRN (Reason: nausea and vomiting) Qty: 14 0RF
== END 2023-03-19 13:51 | disposition home or self-care (01) ==
PROVIDERS: Emergency Provider Student in an Organized Health Care Education/Training Program
DX: R11.15 Cyclical vomiting syndrome unrelated to migraine (principal); F12.988 Cannabis use, unspecified with other cannabis-induced disorder
CPT/HCPCS: 36415; 80048; 80076; 83690; 85025; 99283; 99284

== ENCOUNTER 2023-04-03 12:49 | Emergency (ER) | payer MEDICAID, SELFPAY ==
[2023-04-03 13:41] VITALS: BP 137/56; PULSE 67; RESP 18; TEMP 36.6; O2SAT 98; BMI 23.4
--- NOTE | 2023-04-03 13:43 | ED_ITS ---
HPI - Nausea/Vomiting/Diarrhea General Chief complaint: Abdominal Pain Stated complaint: Vomiting Time Seen by Provider: 04/03/23 16:02 Source: patient Mode of arrival: ambulatory Limitations: no limitations History of Present Illness HPI Narrative: 27 yo male here with complaints of upper abdominal pain, NBNB emesis after eating at a buffet last night. No diarrhea, fevers, chills, urinary symptoms. Associated nausea: Yes Related Data Previous Rx's Medication Instructions Recorded amoxicillin 875 mg-potassium 1 tab PO BID #20 tabs 07/01/21 clavulanate 125 mg tablet (Augmentin) oxycodone-acetaminophen 5 mg-325 1 tab PO Q6H PRN pain #20 tabs 07/01/21 mg tablet (Percocet) cyclobenzaprine 10 mg tablet 10 mg PO TID PRN muscle spasm #14 12/21/21 tabs naproxen 500 mg tablet 500 mg PO BID PRN pain #30 tabs 12/21/21 cephalexin 500 mg capsule 500 mg PO QID 7 days #28 caps 03/26/22 doxycycline hyclate 100 mg tablet 100 mg PO BID 7 days #14 tabs 03/26/22 ondansetron 4 mg disintegrating 4 mg PO Q8H PRN nausea and 04/05/22 tablet vomiting #7 tabs loperamide 2 mg capsule 2 mg PO QID PRN loose stool #10 06/06/22 caps ondansetron 4 mg disintegrating 4 mg PO TID PRN nausea and 06/18/22 tablet vomiting 5 days #10 tabs cephalexin 500 mg capsule 500 mg PO Q6H 7 days #28 caps 09/10/22 doxycycline hyclate 100 mg tablet 100 mg PO BID 7 days #14 tabs 09/10/22 ondansetron 4 mg disintegrating 4 mg PO Q6H PRN nausea and 11/19/22 tablet vomiting 2 days #8 tabs ondansetron 4 mg disintegrating 4 mg PO Q8H PRN nausea and 11/20/22 tablet vomiting #8 tabs ondansetron 4 mg disintegrating 4 mg PO Q8-12H PRN nausea and 12/11/22 tablet vomiting #10 tabs loperamide 2 mg capsule 2 mg PO Q6H PRN loose stool #20 12/27/22 caps ondansetron 4 mg disintegrating 4 mg PO Q6H PRN nausea and 12/27/22 tablet vomiting #14 tabs docusate calcium 240 mg capsule 240 mg PO DAILY #30 caps 02/09/23 ondansetron HCl 4 mg tablet 4 mg PO Q6-8H PRN nausea and 02/09/23 vomiting #14 tabs polyethylene glycol 3350 17 gram 17 g PO DAILY #30 ea 02/09/23 oral powder packet (Miralax) ondansetron 4 mg oral soluble film 4 mg PO Q8H PRN nausea and 03/19/23 vomiting #30 ea ondansetron 4 mg disintegrating 4 mg PO Q6H PRN nausea and 04/03/23 tablet vomiting #10 tabs Allergies Allergy/AdvReac Type Severity Reaction Status Date / Time No Known Allergies Allergy Verified 04/03/23 13:41 [No Known Allergies*] Review of Systems Review of Systems: Yes all other systems are reviewed and are negative Constitutional: Constitutional: Reports no additional constitutional complaints, Denies body ache(s), Denies chills, Denies fever(s), Denies headache(s) and Denies weakness Eyes: Eyes: Reports no additional eye complaints and Denies change in vision ENT: Reports system reviewed and no additional complaints, except as documented, Denies dizziness, Denies headache(s), Denies nasal congestion, Denies nasal discharge and Denies neck pain Cardiovascular: Cardiovascular: Reports no additional cardiovascular complaints, Denies chest pain, Denies leg edema and Denies dyspnea Respiratory: Respiratory: Reports no additional respiratory complaints, Denies cough and Denies dyspnea Gastrointestinal: Gastrointestinal: Reports no additional gastrointestinal complaints, Reports abdominal pain, Denies diarrhea, Reports nausea and Reports vomiting Genitourinary: Genitourinary: Denies urinary incontinence Musculoskeletal: Musculoskeletal: Reports no additional musculoskeletal complaints, Denies back pain, Denies arthralgias, Denies joint swelling, Denies neck pain, Denies numbness and Denies tingling Integumentary/Breasts: Skin/Breast: Reports system reviewed and no additional complaints, except as docu and Denies rash Neurologic: Reports system reviewed and no additional complaints, except as documented, Denies Abnormal speech present, Denies dizziness, Denies headache(s ), Denies numbness, Denies tingling and Denies weakness [facility] Past Medical History Attestation statement: The following information was validated with the patient. Source: old records reviewed and nursing notes reviewed Medical History Bipolar 1 disorder Depression Patient denies significant medical history Seizure Surgical History No significant past surgical history Social History Social History Alcohol intake: current Alcohol intake frequency: does not drink Substance Use Type: Marijuana Advance Directives: No Advance Directives Information Provided: Yes Physical Exam Vital Signs: Vital Signs: Last Vital Signs Temp 98 F 04/03/23 13:41 Pulse 67 04/03/23 13:41 Resp 18 04/03/23 13:41 BP 137/56 L 04/03/23 13:41 Pulse Ox 98 04/03/23 13:41 O2 Del Method Room Air 04/03/23 13:41 BMI result Body Mass Index 23.4 Const: General: cooperative, healthy appearing, comfortable and no acute distress Orientation/consciousness: patient oriented x3 Limitations: no limitations HEENT: Head: Yes normal to inspection Ears: hearing grossly normal bilaterally General nose exam: Normal external nose present Face and sinus: Yes normal facial exam Mouth: Normal oral and palatal mucosa present Throat: Yes posterior oropharynx normal Eyes: General: appearance normal, both eyes and all related structures Pupi ls: Equal, round and reactive pupils present Neck: Neck: Yes normal visual inspection Chest: Chest palpation & inspection: normal inspection of the chest Resp: Effort & Inspection: normal respiratory effort Auscultation: clear to auscultation bilaterally Cardio: Rate: regular rate Rhythm: regular rhythm Peripheral pulses: Peripheral pulses 2+ throughout GI: Inspection: Yes normal to inspection Palpation (GI): Soft to palpation and nontender Auscultation: normal bowel sounds Back/Spine/Pelvis: Thoracic/Lumbar Spine: thoracic and lumbar spine normal to inspection Skin: General skin exam: no rashes or lesions noted Neuro: General: patient oriented x3, no focal motor deficits and normal sensation to monofilament Cranial nerves: Yes Equal, round and reactive pupils present Cognition (Neuro): normal cognition Speech: No Abnormal speech present Gait exam (Neuro): Normal gait present Motor exam (neuro): 5/5 motor strength present throughout Extrem: General: Yes normal to inspection Course Course Course Narrative: This is an RME: Additional HPI, ROS, PE not included below will be deferred to primary provider. This is a [id number]-pxo-male, with no known medical problems, presenting to the emergency department with a complaint of nausea and vomiting since this morning. States that he he is buffet yesterday and believes that he ate something that did not agree with him. No abdominal pain or diarrhea. No fevers or chills. Patient is nontoxic appearing. VSS Plan: Labs, viral swabs Reevaluation(s) Reevaluation #1: viral testing negative, labs unremarkable. Tolerated gingerale post zofran. Can continue to orally hydrate at home. Reviewed worrisome signs/symptoms with patient and when to return to ED. Comfortable with discharge home. Medications Administered Discontinued Medications Generic Name Dose Route Start Last Admin Trade Name Freq PRN Reason Stop Dose Admin Ondansetron HCl 4 mg 04/03/23 16:02 04/03/23 16:06 Ondansetron Odt 4 Mg Tab.Rapdis TRANSLINGU 04/03/23 16:03 4 mg ONCE ONE Administration Medical Decision Making Medical Decision Making [facility] Narrative: 27 yo male here with complaints of upper abdominal pain, NBNB vomiting after eating at the buffet last night. No focal abdominal pain on exam. Abdomen soft/nontender. VSS WIll obtain labs, viral testing, give SL zofran Differential Diagnosis Differential Diagnoses: The differential diagnosis associated with the presentation includes viral syndrome gastroenteritis low concern for acute abdominal pathology Admission/Observation Consideration of admission/observation: Escalation of care including admission/observation considered tolerating po, well hydrated appearing, normal labs-no need for IVF and admission Lab Data [facility] Lab Attestation statement: I reviewed the patient's lab results. unremarkable 04/03/23 14:03 04/03/23 14:03 Labs: Lab Results 04/03/23 04/03/23 04/03/23 Range/Units 14:03 14:03 14:03 WBC 4.9 (4.8-10.8) X10*3/uL RBC 4.82 (4.60-5.80) X10*6/uL Hgb 14.1 (14.0-18.0) g/dl Hct 40.8 L (42.0-52.0) % MCV 84.6 (80.0-98.0) fL MCH 29.3 (27.0-33.0) pg MCHC 34.6 (31.0-36.0) g/dl RDW 11.9 (11.0-16.0) % Plt Count 173 (160-400) X10*3/uL MPV 9.8 (9.4-12.4) fL Immature Gran % (Auto) 0.4 (0.0-0.4) % Neut % (Auto) 77.5 H (45-73) % Lymph % (Auto) 17.4 L (20-40) % [place] % (Auto) 3.7 (2-11) % Eos % (Auto) 0.4 (0-4) % Baso % (Auto) 0.6 (0-2) % Lymph # (Auto) 0.9 L (1.2-4.9) X10*3/uL [place] # (Auto) 0.2 (0.1-1.2) X10*3/uL Eos # (Auto) 0.0 (0.0-0.4) X10*3/uL Baso # (Auto) 0.0 (0.0-0.2) X10*3/uL Abs Immat Gran (auto) 0.02 (0.00-0.03) X10*3/uL Absolute Neuts (auto) 3.8 (2.0-8.3) x10*3/uL Absolute Nucleated RBC 0.000 (0.0-0.012) X10*3/uL Nucleated RBC % (auto) 0.0 (0.0-0.2) /100WBC Sodium 141 (135-145) mmol/L Potassium 3.9 (3.3-5.1) mmol/L Chloride 108 (96-108) mmol/L Carbon Dioxide 26 (22-29) mmol/L Anion Gap 11 L (12-20) BUN 9 (9-16) mg/dL Creatinine 0.78 (0.5-1.4) mg/dL Estim Creat Clear Calc 140.9 Estimated GFR > 60 Random Glucose 106 (60-115) mg/dL Calcium 9.6 (8.4-10.2) mg/dL Magnesium 1.8 (1.6-2.6) mg/dL Total Bilirubin 0.7 (0.0-1.0) mg/dL Direct Bilirubin 0.3 (0.0-0.5) mg/dL AST 16 (5-37) U/L ALT 15 (0-40) U/L Alkaline Phosphatase 60 (39-117) U/L Total Protein 6.7 (6.5-8.0) g/dL Albumin 4.5 (3.5-5.0) g/dL Lipase 8 (8-78) U/L Influenza Type A (PCR) NEGATIVE (Negative) Influenza Type B (PCR) NEGATIVE (Negative) RSV RNA Qual (PCR) NEGATIVE (Negative) SARS-CoV-2 RNA (RT-PCR) NEGATIVE (Negative) Discharge Plan Discharge Clinical Impression: Vomiting Patient Disposition: Home, Self-Care Instructions: Acute Nausea and Vomiting (ED) Additional Instructions: Lab work is normal Viral testing is negative Start with clear liquids then advance diet as tolerated Prescriptions: New ondansetron 4 mg tablet,disintegrating 4 mg PO Q6H PRN (Reason: nausea and vomiting) Qty: 10 0RF No Action oxycodone-acetaminophen [Percocet] 5-325 mg tablet 1 tab PO Q6H PRN (Reason: pain) Qty: 20 0RF amoxicillin-pot clavulanate [Augmentin] 875-125 mg tablet 1 tab PO BID Qty: 20 0RF loperamide 2 mg capsule 2 mg PO QID PRN (Reason: loose stool) Qty: 10 0RF naproxen 500 mg tablet 500 mg PO BID PRN (Reason: pain) Qty: 30 0RF cyclobenzaprine 10 mg tablet 10 mg PO TID PRN (Reason: muscle spasm) Qty: 14 0RF cephalexin 500 mg capsule 500 mg PO QID 7 Days Qty: 28 0RF doxycycline hyclate 100 mg tablet 100 mg PO BID 7 Days Qty: 14 0RF ondansetron 4 mg tablet,disintegrating 4 mg PO Q8H PRN (Reason: nausea and vomiting) Qty: 7 0RF ondansetron 4 mg tablet,disintegrating 4 mg PO TID PRN (Reason: nausea and vomiting) 5 Days Qty: 10 0RF cephalexin 500 mg capsule 500 mg PO Q6H 7 Days Qty: 28 0RF doxycycline hyclate 100 mg tablet 100 mg PO BID 7 Days Qty: 14 0RF loperamide 2 mg capsule 2 mg PO Q6H PRN (Reason: loose stool) Qty: 20 0RF ondansetron 4 mg tablet,disintegrating 4 mg PO Q6H PRN (Reason: nausea and vomiting) Qty: 14 0RF ondansetron 4 mg film 4 mg PO Q8H PRN (Reason: nausea and vomiting) Qty: 30 0RF ondansetron 4 mg tablet,disintegrating 4 mg PO Q6H PRN (Reason: nausea and vomiting) 2 Days Qty: 8 0RF ondansetron 4 mg tablet,disintegrating 4 mg PO Q8H PRN (Reason: nausea and vomiting) Qty: 8 0RF ondansetron 4 mg tablet,disintegrating 4 mg PO Q8-12H PRN (Reason: nausea and vomiting) Qty: 10 0RF polyethylene glycol 3350 [Miralax] 17 gram powder in packet 17 g PO DAILY Qty: 30 0RF docusate calcium 240 mg capsule 240 mg PO DAILY Qty: 30 0RF ondansetron HCl 4 mg tablet 4 mg PO Q6-8H PRN (Reason: nausea and vomiting) Qty: 14 0RF Referrals: Physician,None [Primary Care Provider] - 1 week Stand Alone Forms: Work/School Release Interventions: ED Discharge Assessment Last Done: 04/03/23 17:04 Discharge Date/Time: 04/03/23 17:04
[2023-04-03 14:07] LABS: MANUAL DIFF FLAG NO
[2023-04-03 14:12] LABS: Basophils Percent Auto 0.6 % (0-2); Eosinophils Percent Auto 0.4 % (0-4); Hematocrit 40.8 % (42.0-52.0); Hemoglobin 14.1 g/dl (14.0-18.0); Imm Gran Abs Auto 0.02 X10*3/uL (0.00-0.03); Imm Gran Pct Auto 0.4 % (0.0-0.4); Lymphocytes Absolute Auto 0.9 X10*3/uL (1.2-4.9); Lymphocytes Percent Auto 17.4 % (20-40); Mean Corpuscular HGB Conc 34.6 g/dl (31.0-36.0); Mean Corpuscular Hemoglobin 29.3 pg (27.0-33.0); Mean Corpuscular Volume 84.6 fL (80.0-98.0); Mean Platelet Volume 9.8 fL (9.4-12.4); Monocytes Absolute Auto 0.2 X10*3/uL (0.1-1.2); Monocytes Percent Auto 3.7 % (2-11); Neutrophils Absolute Auto 3.8 x10*3/uL (2.0-8.3); Neutrophils Percent Auto 77.5 % (45-73); Platelet Count 173 X10*3/uL (160-400); Red Blood Count 4.82 X10*6/uL (4.60-5.80); Red Cell Distribution Width 11.9 % (11.0-16.0); White Blood Count 4.9 X10*3/uL (4.8-10.8)
[2023-04-03 14:25] LABS: Alanine Aminotransferase 15 U/L (0-40); Albumin Level 4.5 g/dL (3.5-5.0); Alkaline Phosphatase 60 U/L (39-117); Anion Gap 11 (12-20); Aspartate Amino Transferase 16 U/L (5-37); Bilirubin Direct 0.3 mg/dL (0.0-0.5); Bilirubin Total 0.7 mg/dL (0.0-1.0); Blood Urea Nitrogen 9 mg/dL (9-16); Calcium 9.6 mg/dL (8.4-10.2); Carbon Dioxide 26 mmol/L (22-29); Chloride 108 mmol/L (96-108); Creatinine Clr Calc Pharmacy 140.9; Estimated Glomerular Filt Rate > 60; Glucose Random 106 mg/dL (60-115); Lipase 8 U/L (8-78); Magnesium 1.8 mg/dL (1.6-2.6); Potassium 3.9 mmol/L (3.3-5.1); Sodium 141 mmol/L (135-145); Total Protein 6.7 g/dL (6.5-8.0)
[2023-04-03 14:59] LABS: Influenza A PCR NEGATIVE (Negative); Influenza B PCR NEGATIVE (Negative); Resp Syncy Virus RNA Qual PCR NEGATIVE (Negative); SARS COV2 PCR INHOUSE NEGATIVE (Negative)
[2023-04-03] MEDS: Ondansetron ODT 4 MG TAB.RAPDIS TRANSLINGU (16:06)
--- NOTE | 2023-04-03 16:07 | PC.NURSE ---
medicated per the MAR for nausea
== END 2023-04-03 17:04 | disposition home or self-care (01) ==
PROVIDERS: Physician Assistant Medical; Emergency Provider Emergency Medicine Emergency Medical Services
DX: R11.2 Nausea with vomiting, unspecified (principal); Z20.822 Contact with and (suspected) exposure to COVID-19; Z20.828 Contact with and (suspected) exposure to other viral communicable diseases; F12.90 Cannabis use, unspecified, uncomplicated; Z79.899 Other long term (current) drug therapy
CPT/HCPCS: 0241U; 36415; 80048; 80076; 83690; 83735; 85025; 99282; 99283